=== PATIENT | male | born 1935 | race Caucasian/White ===

== ENCOUNTER → 2017-12-08 | Outpatient (CLI) | payer MEDICARE ==
--- NOTE | 2017-12-08 15:09 | CONS ---
CONSULTATION DATE OF SERVICE: 12/08/2017 A 81-year-old gentleman has been evaluated in [facility] for significant excessive daytime sleepiness. The patient has history of obstructive sleep apnea-hypopnea syndrome in the past. HISTORY OF PRESENT ILLNESS/SLEEP-WAKE EVALUATION: Patient was diagnosed with obstructive sleep apnea 2 years ago and at that time, he was recommended to use CPAP equipment. He did not like it at that time and stopped therapy. Presently, his sleep schedule from around 12:30 am until 7 or 7:15 a.m. He sleeps for about 6-1/2 hours, wakes up 3 times and may have up to 3 episodes of nocturia at night. Sometimes he has problem with falling asleep for more than 30 minutes, but not more than 1 hour. He has TV set in bedroom. They usually he sleeps on the back. No history of hypnagogic hallucinations, sleep paralysis or cataplexy. During the day patient feels sleepy. [place] Sleepiness Scale increased to 10. PAST MEDICAL HISTORY: Positive for coronary artery disease, diabetes mellitus, skin infection, tennis elbow, skin CA, BPH. PAST SURGICAL HISTORY: CABG for 3 vessels, bilateral knee replacement, and TURP, surgery for skin cancer and surgery for problem with the left elbow recently. MEDICATIONS: Lantus, glipizide, metoprolol, Januvia, , tramadol, gabapentin, cefaclor. SOCIAL HISTORY: Positive for occasional smoking cigars in the past. Alcohol consumption very rarely. FAMILY HISTORY: Heart problems, hyperlipidemia, stroke by his mother. Prostate cancer by his father. PHYSICAL EXAM: GENERAL gentleman without distress. VITAL SIGNS BP 108/66, HR 97, RR 14, height 65.5 inches, weight 156.4, BMI 25.5, temperature 97.8, oxygen saturation room air 94%. HEENT PERRLA, EOMI, evaluation of oropharynx showed moderately close to extremely low position of soft palate. Retrognathia 2 mm. Neck 15-1/2 inches in circumference. NECK Supple, no JVD. Thyroid is not palpable. LUNGS Clear to percussion and to auscultation. Good air exchange. No wheezing or rhonchi. HEART S1, S2 regular. No murmurs, gallops, or rubs. ABDOMEN Soft and nontender. Bowel sounds are present. No organomegaly appreciated. EXTREMITIES No clubbing or cyanosis. GROOVER RUNNER Awake, alert, and oriented X3. Cranial nerves 2 to 7 intact. There is no fasciculation or atrophy. noted. No focal deficits observed. IMPRESSION: 1. Multiple awakenings from sleep with nocturia, low position of soft palate, history of obstructive sleep apnea-hypopnea syndrome in the past, sleepiness, Dillon Sleepiness Scale increased to 10, obstructive sleep apnea-hypopnea syndrome. 2. Coronary artery disease, status post CABG. 3. Diabetes mellitus 4 status post bilateral knee replacement. 4. Status post left tennis elbow and surgical treatment. 5. History of benign prostatic hypertrophy, status post transurethral resection of prostate. 6. History of skin carcinoma treated surgically. 7. Shoulder arthritis. PLAN: 1. Polysomnography for evaluation of patient's breathing during sleep. 2. CPAP/BiPAP titration if sleep study confirms obstructive sleep apnea-hypopnea syndrome. 3. Preferable position during sleep on the side. 4. No driving if patient feels any sleepiness. 5. I will see patient for follow up visit to explain results of testing and following plan. Thank you very much for referring this patient for consultation. Sincerely, Mario Tejada MD, PhD, FAASM Diplomat of [employer] Senior Technical Trainer of [facility] [place] MMODL / IJN: [id number] /
== END | disposition home or self-care (01) ==
LOC: SLEEP 11:49
PROVIDERS: ATTEND Internal Medicine
DX: G47.33 Obstructive sleep apnea (adult) (pediatric) (principal); I25.10 Atherosclerotic heart disease of native coronary artery without angina pectoris; E11.9 Type 2 diabetes mellitus without complications; M13.819 Other specified arthritis, unspecified shoulder; Z87.891 Personal history of nicotine dependence; Z95.1 Presence of aortocoronary bypass graft; Z96.653 Presence of artificial knee joint, bilateral; Z98.890 Other specified postprocedural states; Z90.79 Acquired absence of other genital organ(s); Z79.4 Long term (current) use of insulin; Z79.899 Other long term (current) drug therapy; Z79.891 Long term (current) use of opiate analgesic
CPT/HCPCS: 99211

== ENCOUNTER → 2018-03-16 | Outpatient (CLI) | payer MEDICARE ==
--- NOTE | 2018-03-16 14:33 | SFUN ---
SLEEP CENTER FOLLOW UP NOTE DATE OF SERVICE: 03/16/2018 A 82-year-old gentleman who has been followed in the Sleep Center to discuss results of the sleep study and following plan. We discussed results of sleep studies with patient. Sleep study did not show any significant respiratory abnormalities during the sleep, apnea-hypopnea index was only 1.9, although patient slept only 49.1% of the time, which is lower sleep efficiency and sleep latency was prolonged to 40.6 minutes. EMG showed 62.9 periodic limb movements per hour with 11.4 microarousals per hour. Presently, [place] Sleepiness Scale increased to 13. Patient has tendency to go to bed later at night. MEDICATIONS: Lantus, glipizide, metformin, metoprolol, Januvia, tramadol, Gabapentin, cefaclor, . PHYSICAL EXAM: Patient in no distress. BP 124/61, HR 62, RR 16, weight 160 pounds, temperature 97.6, oxygen saturation at room air 99%. OROPHARYNX: Moderately low position of soft palate. Neck Supple, no JVD. Thyroid is not palpable. LUNGS Clear to percussion and to auscultation. Good air exchange. No wheezing or rhonchi. HEART S1, S2 regular. No murmurs, gallops, or rubs. ABDOMEN Soft and nontender. Bowel sounds are present. No organomegaly appreciated. EXTREMITIES No clubbing or cyanosis. LABORER HIGH DENSITY PRESS Awake, alert, and oriented X3. Cranial nerves 2 to 7 intact. There is no fasciculation or atrophy. noted. No focal deficits observed. IMPRESSION: 1. No significant respiratory abnormalities during the sleep study. 2. Severe periodic limb movements have been documented. 3. Coronary artery disease, status post coronary artery bypass grafting. 4. Diabetes mellitus. 5. Status post bilateral knee replacements. 6. Status post left elbow surgical treatment for tennis elbow. 7. History of benign prostatic hypertrophy, status post resection of prostate. 8. Status post surgical treatment for skin carcinoma. 9. Shoulder arthritis. PLAN: 1. We discussed with the patient possibility to use dopaminergic agonist for periodic limb movements. Presently, patient believes that it is not necessary. 2. Sleep hygiene with regular time in bed for 7-1/2 to 8 hours. 3. As much exposure to the sunlight in the morning and less exposure to the blue light in the evening with a goal to move sleep cycle earlier. 4. Reveals control, paradoxical intention, worry time if necessary. 5. Preferable position during the sleep on the side. 6. No driving if feeling sleepiness. Thank you very much for allowing me to participate in the management of your patient. Sincerely, Mario Tejada MD, PhD, FAASM Diplomat of [employer] Airplane Woodworker of [facility] [place] MMODL / YENNIFERN: [id number] /
== END ==
LOC: SLEEP 13:04
PROVIDERS: ATTEND Internal Medicine
DX: G47.61 Periodic limb movement disorder (principal); I25.10 Atherosclerotic heart disease of native coronary artery without angina pectoris; E11.9 Type 2 diabetes mellitus without complications; N40.0 Benign prostatic hyperplasia without lower urinary tract symptoms; M19.019 Primary osteoarthritis, unspecified shoulder; Z95.1 Presence of aortocoronary bypass graft; Z96.653 Presence of artificial knee joint, bilateral; Z98.890 Other specified postprocedural states; Z85.820 Personal history of malignant melanoma of skin; Z79.4 Long term (current) use of insulin; Z79.899 Other long term (current) drug therapy

== ENCOUNTER 2019-02-06 06:04 | Day surgery (SDC) | payer MEDICARE ==
[2019-02-02 14:02] VITALS: BMI 23.1
[~2019-02-06 06:04] MED LIST: ALPRAZolam 0.25 MG TAB PO PRN; ALPRAZolam 0.5 MG TAB PO PRN; ASPIRIN 325 MG TAB PO STA; ATORVASTATIN 80 MG TAB PO STA; NITROGLYCERIN SL TABS 0.4 MG TAB SUBLINGUAL PRN; SODIUM CHLORIDE 0.9% 1,000 ML in EMPTY BAG 1 BAG IV ONE
[2019-02-06 07:09] VITALS: RESP 16; TEMP 98.1
[2019-02-06 07:21] LABS: Basophils # (A) 0.1 k/uL (0-0.2); Basophils % (A) 1 %; Eosinophils # (A) 0.2 k/uL (0-0.7); Eosinophils % (A) 3 %; HCT 41.2 % (39.0-53.0); HGB 13.7 gm/dL (13.0-17.5); Lymphocytes # (A) 1.6 k/uL (1.0-4.8); Lymphocytes % (A) 18 %; MCH 32.4 pg (25.0-35.0); MCHC 33.3 g/dL (31.0-37.0); MCV 97.2 fL (80.0-100.0); Mean Platelet Volume 5.6; Monocytes # (A) 0.3 k/uL (0-1.0); Monocytes % (A) 4 %; Neutrophils # (A) 6.3 k/uL (1.3-7.7); Neutrophils % (A) 73 %; Platelet Count 223 k/uL (150-450); RBC 4.24 m/uL (4.30-5.90); RDW 12.7 % (11.5-15.5); WBC 8.5 k/uL (3.8-10.6)
[2019-02-06 07:23] LABS: Glucose,Whole Blood 130 mg/dL (75-99)
[2019-02-06] MEDS ORDERED: LIDOCAINE 1% INJ 10MG/ML (20 ML MDV) ONE (07:29)
[2019-02-06] MEDS ORDERED: fentaNYL (PF) 50 MCG/ML 2 ML AMP ONE (07:30)
[2019-02-06] MEDS ORDERED: fentaNYL (PF) 50 MCG/ML 2 ML AMP IV ONE (07:33)
[2019-02-06] MEDS ORDERED: LIDOCAINE 1% INJ 10MG/ML (20 ML MDV) SQ ONE (07:40)
[2019-02-06] MEDS ORDERED: MIDAZOLAM 2 MG/2 ML VIAL IV ONE (07:42)
[2019-02-06 07:46] LABS: Calcium 9.6 mg/dL (8.4-10.2); Potassium 4.3 mmol/L (3.5-5.1)
[2019-02-06] MEDS ORDERED: IOPAMIDOL-370 125ML BTL INJ ONE (08:00)
[2019-02-06] MEDS ORDERED: IOPAMIDOL-370 100ML BTL INJ ONE (08:09)
[2019-02-06] MEDS ORDERED: RX INFO: IV CONTRAST WAS GIVEN 1 EACH MISC MISCELLANE PRN (08:21)
[2019-02-06] MEDS ORDERED: ALPRAZolam 0.25 MG TAB PO PRN (08:22)
[2019-02-06] MEDS ORDERED: traMADol 50 MG TAB PO PRN (08:22)
[2019-02-06] MEDS ORDERED: SODIUM CHLORIDE 0.9% 1,000 ML IV SCH (08:30)
[2019-02-06] MEDS ORDERED: NON FORMULARY DRUG (Omeprazole [Omeprazole] 20 MG) PO SCH (09:00)
[2019-02-06] MEDS ORDERED: RAMIPRIL 2.5 MG PO SCH (09:00)
[2019-02-06] MEDS ORDERED: NON FORMULARY DRUG (Sitagliptin 100 MG) PO SCH (09:00)
[2019-02-06] MEDS ORDERED: INSULIN GLARGINE HUM REC ANLOG 20 UNIT SQ SCH (09:00)
[2019-02-06] MEDS ORDERED: ASPIRIN 81 MG PO SCH (09:00)
[2019-02-06] MEDS ORDERED: METOPROLOL TARTRATE 50 MG TAB PO SCH (09:00)
[2019-02-06] MEDS ORDERED: EZETIMIBE 10 MG TAB PO SCH (09:00)
[2019-02-06] MEDS ORDERED: ATORVASTATIN 40 MG TAB PO SCH (09:00)
[2019-02-06 09:09] LABS: Glucose,Whole Blood 115 mg/dL (75-99)
--- NOTE | 2019-02-06 09:29 | CC ---
CARDIAC CATHETERIZATION REPORT Mr. Chan is an 83-year-old male with known history of hypertension, hyperlipidemia, and diabetes mellitus, who presented with symptoms of progressive dyspnea and abnormal myocardial perfusion imaging with evidence of inferolateral wall ischemia. In view of that, recommendation was made regarding cardiac catheterization. The procedure as well as risks and the complications were discussed with the patient who is in full understanding and agreement. 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 Using Xylocaine anesthesia in the Seldinger technique, a 6-Kuwaiti sheath was introduced in the right femoral artery. Selective right and left coronary angiography was performed using 6- Kuwaiti 4 bend right and left Naye catheter. Multiple views of the coronary artery including hemiaxial views were obtained. Following that, the 6-Ku[place]i right Naye catheter was used to cannulate the saphenous vein graft to the obtuse marginal branch and TATE to the LAD. Images of the grafts were obtained. Following that, a 6-Kuwaiti right coronary bypass graft catheter was used to cannulate the saphenous vein graft to the right coronary artery. Subsequently, a 6-Kuwaiti tight pigtail catheter was introduced in the left ventricle and pressures were calculated. Subsequently an aortogram in the MAXINE view was performed. At the end procedure, catheter and sheath were removed. Hemostasis was obtained with compression of the right groin. There were no immediate complications. Patient was returned to his room in stable condition. FINDINGS: FLUOROSCOPY: There was severe calcification involving the left anterior descending artery. LEFT MAIN: This is a large-sized vessel bifurcating in left circumflex, left anterior descending artery. Left main coronary artery has a 20% plaque distally. The rest of the vessel has no high-grade stenosis. LEFT ANTERIOR DESCENDING ARTERY: This vessel is totally occluded after takeoff of a diagonal branch. There is a mild plaque proximal to the total occlusion. There is no significant antegrade flow. LEFT CIRCUMFLEX: This is a large-sized vessel giving rise to 2 obtuse marginal branches. The left circumflex has mild intimal disease of 10% to 20% proximally. It is calcified. The rest of the vessel has no high-grade stenosis. RIGHT CORONARY ARTERY: This is a heavily calcified vessel dominant. The ostium of the right coronary artery has a 70% plaque. There is another significant stenosis involving the mid right coronary artery in a heavily calcified segment of 90%. Distally, the vessel is totally occluded with no significant antegrade flow. SAPHENOUS VEIN GRAFT TO THE OBTUSE MARGINAL BRANCH: This graft is totally occluded proximally. SAPHENOUS VEIN GRAFT TO THE RIGHT CORONARY ARTERY: This graft is totally occluded proximal. TATE TO THE LAD: The distal anastomotic site is patent. The flow in the LAD is brisk. COLLATERALS: There is collateral from the left anterior descending artery and from the left circumflex toward the right PDA that are small in caliber. LEFT VENTRICULOGRAM: Left ventriculogram is not performed. HEMODYNAMICS: There was no gradient across the aortic valve. The left ventricle end-diastolic pressure was 10-12 mmHg. AORTOGRAM: Aortogram was performed in the MAXINE view and revealed a tricuspid aortic valve with no visualization of the saphenous vein graft. CONCLUSION: 1. 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 2. Mild disease in the left circumflex and the left main. 3. Patent TATE to left anterior descending artery. 4. Chronically occluded saphenous vein graft to the obtuse marginal branch as well as to the right coronary artery. RECOMMENDATION: At this time, I will continue medical therapy and patient will be evaluated for possible revascularization of his chronic occluded right coronary artery. Those findings and recommendation were discussed with the patient and his family who are in full understanding and agreement. Duration of procedure is 31 minutes. JAIR / YENNIFERN: [id number] /
--- NOTE | 2019-02-06 09:35 | LTR ---
February 06, 2019 Re: Mark Guerran Dear Dr. Dawn: I had the opportunity to perform cardiac catheterization on Mr. Chan at [facility] on the 06 of February and a full copy of the procedure note will be forwarded to you. In brief, he was found to have chronic occluded LAD and right coronary artery with patent TATE to LAD and chronically occluded saphenous vein graft to the OM and to the right coronary artery. At this time, I will continue medical therapy and evaluate him for possible angioplasty and attempt angioplasty and stenting of the chronic occluded right coronary artery. I will keep you updated on his progress and thank you again for allowing me the opportunity to participate in his care. Please feel free to call for any questions. Sincerely yours, MD JAIR Casanova / JANNIE: [id number] /
[2019-02-06 16:04] VITALS: BP 112/63; PULSE 69
[2019-02-06] MEDS ORDERED: ZOLPIDEM 5 MG TAB PO SCH (21:00)
== END 2019-02-06 15:45 | disposition home or self-care (01) ==
LOC: CATHCVL 06:04
PROVIDERS: ATTEND Internal Medicine Interventional Cardiology
DX: I25.10 Atherosclerotic heart disease of native coronary artery without angina pectoris (principal); I25.810 Atherosclerosis of coronary artery bypass graft(s) without angina pectoris; I25.84 Coronary atherosclerosis due to calcified coronary lesion; I25.82 Chronic total occlusion of coronary artery; I10 Essential (primary) hypertension; Z87.891 Personal history of nicotine dependence; E78.5 Hyperlipidemia, unspecified; E11.40 Type 2 diabetes mellitus with diabetic neuropathy, unspecified; E78.00 Pure hypercholesterolemia, unspecified; Z95.1 Presence of aortocoronary bypass graft; Z79.84 Long term (current) use of oral hypoglycemic drugs; Z79.82 Long term (current) use of aspirin; Z79.899 Other long term (current) drug therapy; Z88.5 Allergy status to narcotic agent
CPT/HCPCS: 93459; 80048; 85025; C1894; C1769; J2250; J2001; J3010; Q9967 ×2

== ENCOUNTER → 2019-02-13 | Outpatient (CLI) | payer MEDICARE ==
[2019-02-01 16:11] VITALS: BMI 23.1
--- NOTE | 2019-02-13 13:17 | MR ---
MR brain without contrast HISTORY: Cerebral vascular accident, memory loss Multiplanar multisequence imaging obtained through the brain Cortical atrophy is present. There is no restricted diffusion. No hemorrhage or hydrocephalus. There are scattered hyperintensities on inversion recovery T2-weighted sequences within the juxtacortical w tyrone matter on the left, axial image 24 and the left parietal lobe, right frontal subcortical white m atter on axial image #20 measuring 13 mm x 4 mm, bilateral frontal deep white matter. Some confluent hyperintensity also present in the periventricular locations. Increased signal also present within th e tectum which is symmetric. Corpus callosum, pituitary, cervical medullary junction, cerebellopontin e angles are normal. There are normal vascular flow voids. Focal area of encephalomalacia present at the medial aspect of the left cerebellar hemisphere, sagittal image #9, axial image #8. The orbits show symmetric appearance. Some mild inflammatory change suspected in the mastoid air cell s on the left. Sinuses show mild mucoperiosteal thickening in ethmoid air cells and maxillary sinus. 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 Age-related atrophy. Additional findings above.
== END | disposition home or self-care (01) ==
LOC: RADMRIMAIN 10:33
PROVIDERS: ATTEND Psychiatry & Neurology Neurology
DX: G31.1 Senile degeneration of brain, not elsewhere classified (principal); R90.89 Other abnormal findings on diagnostic imaging of central nervous system; G37.9 Demyelinating disease of central nervous system, unspecified; G93.89 Other specified disorders of brain; I67.9 Cerebrovascular disease, unspecified
CPT/HCPCS: 70551

== ENCOUNTER → 2019-04-13 | Outpatient (CLI) | payer MEDICARE ==
[2019-04-13 16:51] LABS: HCT 42.5 % (39.0-53.0); MCH 32.6 pg (25.0-35.0); MCHC 32.9 g/dL (31.0-37.0); MCV 98.9 fL (80.0-100.0); Mean Platelet Volume 6.9; Platelet Count 221 k/uL (150-450); RBC 4.29 m/uL (4.30-5.90); RDW 12.4 % (11.5-15.5); WBC 7.3 k/uL (3.8-10.6)
[2019-04-13 17:00] LABS: Prothrombin Time 10.5 sec (9.0-12.0)
[2019-04-13 23:22] LABS: African American GFR (CKD) 65.3 (60.0-200.0); Anion Gap 8.2 mmol/L (4.00-12.00); BUN/Creat Ratio 15.83 Ratio (12.00-20.00); Calcium 9.7 mg/dL (8.7-10.3); Carbon Dioxide 27.8 mmol/L (21.6-31.8); Magnesium 1.6 mg/dL (1.5-2.4); Non-African American GFR(CKD) 56.4 (60.0-200.0); Potassium 4.5 mmol/L (3.5-5.5)
== END | disposition home or self-care (01) ==
LOC: LABWHC1 15:52
PROVIDERS: ATTEND Internal Medicine Interventional Cardiology
DX: I25.118 Atherosclerotic heart disease of native coronary artery with other forms of angina pectoris (principal)
CPT/HCPCS: 36415; 80048; 83735; 85027; 85610

== ENCOUNTER 2019-04-27 06:07 | Day surgery (SDC) | payer MEDICARE ==
[2019-04-26 13:12] VITALS: BMI 23.5
[2019-04-27] MEDS ORDERED: SODIUM CHLORIDE 0.9% 1,000 ML IV SCH ×2 (06:08→08:45)
[2019-04-27] MEDS ORDERED: NITROGLYCERIN SL TABS 0.4 MG TAB SUBLINGUAL PRN (06:08)
[2019-04-27] MEDS ORDERED: SODIUM CHLORIDE 0.9% 1,000 ML in EMPTY BAG 1 BAG IV ONE (06:08)
[2019-04-27] MEDS ORDERED: ALPRAZolam 0.25 MG TAB PO PRN ×2 (06:08→08:43)
[2019-04-27] MEDS ORDERED: ALPRAZolam 0.5 MG TAB PO PRN (06:08)
[2019-04-27] MEDS ORDERED: SODIUM CHLORIDE 0.9% 1,000 ML IV ONE (06:23)
[2019-04-27 06:47] VITALS: RESP 16; TEMP 98
[2019-04-27 06:55] LABS: Glucose,Whole Blood 163 mg/dL (75-99)
[2019-04-27] MEDS ORDERED: ASPIRIN 325 MG TAB PO ONE (07:00)
[2019-04-27] MEDS ORDERED: fentaNYL (PF) 50 MCG/ML 2 ML AMP IVP ONE (08:09)
[2019-04-27] MEDS ORDERED: LIDOCAINE 1% INJ 10MG/ML (20 ML MDV) SQ ONE (08:10)
[2019-04-27] MEDS ORDERED: MIDAZOLAM 2 MG/2 ML VIAL IVP ONE (08:13)
[2019-04-27] MEDS ORDERED: IOPAMIDOL-370 125ML BTL INJ ONE (08:25)
[2019-04-27] MEDS ORDERED: RX INFO: IV CONTRAST WAS GIVEN 1 EACH MISC MISCELLANE PRN (08:42)
[2019-04-27] MEDS ORDERED: traMADol 50 MG TAB PO PRN (08:43)
[2019-04-27] MEDS ORDERED: ZOLPIDEM 5 MG TAB PO PRN (08:43)
--- NOTE | 2019-04-27 08:54 | CC ---
CARDIAC CATHETERIZATION REPORT Mr. Chan is an 83-year-old male with known history of hypertension, hyperlipidemia, diabetes mellitus, and history of coronary artery disease, status post coronary artery bypass grafting in 2001 was recently found to have chronically occluded right coronary artery, underwent complex chronic total occlusion revascularization at [facility] on April 17. He presented yesterday with symptoms of chest discomfort and palpitation on and off and dyspnea and because of his recent intervention, recommendation made regarding cardiac catheterization, the procedures, risks, and complications were discussed with the patient who is in full understanding and agreement. PROCEDURE: Patient was brought to analyst microbiology lab in a fasting semi-sedated state after receiving fentanyl and Benadryl and achieving moderate conscious sedated state. Using Xylocaine anesthesia and Seldinger technique, a 6-Chinese sheath was introduced in the right femoral artery. Selective right and left coronary angiography performed using 6-Chinese 4 bend right and left Naye catheter. Multiple views of the coronary artery including hemiaxial views obtained. The 6-Chinese right Naye catheter was used to cross the aortic valve and pressures were calculated. Following that, catheter and sheath were removed. Hemostasis was obtained. Compression of the right groin, there were no immediate complications. Patient is returned to his room in stable condition. FINDINGS: LEFT MAIN: This is a large-sized vessel, bifurcating into left circumflex, left anterior descending artery. Left main coronary artery has about 20% plaque distally. LEFT ANTERIOR DESCENDING ARTERY: This vessel has a 20% plaque proximally. Subsequently, it is chronically occluded at the takeoff of the diagonal branch with minimal antegrade flow. LEFT CIRCUMFLEX: This is a nondominant vessel, giving rise to a large obtuse marginal branch. The left circumflex obtuse marginal branch has mild intimal disease of 10% to 20% without any evidence of high-grade stenosis. RIGHT CORONARY ARTERY: This is a large dominant vessel, stented throughout its course from the ostium to the bifurcation. It has a mild irregularity in the proximal and mid segment of 20%. The flow into the PLV is brisk. The flow in the PDA is slow. There is collaterals from the left coronary system toward the distal right PDA. There is no evidence to suggest stent thrombosis. LEFT VENTRICULOGRAM: Left ventriculogram was not performed. HEMODYNAMICS: There was no gradient across the aortic valve. The left ventricular end- diastolic pressure was 12-14 mmHg. CONCLUSION: 1. Patent multiple stent into the right coronary artery with mild irregularity but no clear evidence to suggest a thrombosis of the stents and slow flow in the PDA. 2. Chronically occluded mid LAD 3. Mild disease in the left circumflex. RECOMMENDATION: In view of finding in the anatomy, I recommend continue medical therapy. Depending on his progress, further recommendation will be made. Those findings and recommendations were discussed with the patient and his family and they are in full understanding and agreement. Duration of procedure is 17 minutes. MMJULIENNEL / YENNIFERN: [id number] / MTDHarvey
--- NOTE | 2019-04-27 08:59 | LTR ---
DATE OF SERVICE: 04/27/2019 RE: Mark Chan Dear Dr. Dawn; I had the pleasure to perform cardiac catheterization on Mr. Chan at [facility] on April 27 and a full copy of the procedure note will be forwarded to you. In brief, he was found to have patent multiple stents done recently on the right coronary artery with mild plaque. The left system showed no progression compared with a cardiac catheterization that was done recently and based on those findings, I recommend continue medical therapy with the present regimen and depending on his progress, further recommendation will be made. Sincerely, MD MICHAEL CasanovaL / YENNIFERN: [id number] /
[2019-04-27] MEDS ORDERED: RAMIPRIL 2.5 MG PO SCH (09:00)
[2019-04-27] MEDS ORDERED: ATORVASTATIN 40 MG TAB PO SCH (09:00)
[2019-04-27] MEDS ORDERED: NON FORMULARY DRUG (Omeprazole [Omeprazole] 20 MG) PO SCH (09:00)
[2019-04-27] MEDS ORDERED: EZETIMIBE 10 MG TAB PO SCH (09:00)
[2019-04-27] MEDS ORDERED: TAMSULOSIN 0.4 MG CAP.ER.24H PO SCH (09:00)
[2019-04-27] MEDS ORDERED: TICAGRELOR 90 MG TAB PO SCH (09:00)
[2019-04-27] MEDS ORDERED: INSULIN GLARGINE HUM REC ANLOG 20 UNIT SQ SCH (09:00)
[2019-04-27] MEDS ORDERED: METOPROLOL TARTRATE 50 MG TAB PO SCH (09:00)
[2019-04-27 17:14] VITALS: BP 107/61; PULSE 63
[2019-04-28] MEDS ORDERED: ASPIRIN 81 MG PO SCH (09:00)
== END 2019-04-27 14:20 | disposition home or self-care (01) ==
LOC: CATHCVL 06:07
PROVIDERS: ATTEND Internal Medicine Interventional Cardiology
DX: I25.110 Atherosclerotic heart disease of native coronary artery with unstable angina pectoris (principal); I25.82 Chronic total occlusion of coronary artery; I10 Essential (primary) hypertension; E78.00 Pure hypercholesterolemia, unspecified; E11.9 Type 2 diabetes mellitus without complications; E78.2 Mixed hyperlipidemia; M19.90 Unspecified osteoarthritis, unspecified site; Z79.82 Long term (current) use of aspirin; Z79.899 Other long term (current) drug therapy; Z79.84 Long term (current) use of oral hypoglycemic drugs; Z88.5 Allergy status to narcotic agent; Z95.1 Presence of aortocoronary bypass graft; Z72.0 Tobacco use
CPT/HCPCS: 93458; C1894; C1769; J2250; J2001; J3010; Q9967

== ENCOUNTER 2020-12-03 07:43 | Emergency (ER) | payer MEDICARE ==
[2020-12-03 07:51] VITALS: RESP 18; TEMP 97.8
--- NOTE | 2020-12-03 08:14 | ED ---
General Adult HPI - General Chief complaint: Arrhythmia/Palpitations Stated complaint: cough & cardiac concerns Time Seen by Provider: 12/03/20 07:45 Source: patient, RN notes reviewed, old records reviewed Mode of arrival: wheelchair Limitations: no limitations - History of Present Illness Initial comments: This is an 84-year-old male who presents emergency Department with his . Patient has no complaints agrees the patient never did have any complaints. When it doesn't normal set of vitals every morning and this morning she said when she listened to his heart she thought the heart rate was 134 however the pulse was under 100 at all times. Patient had no chest pain patient had no palpitations. Patient denies any difficulty breathing shortness of breath. Patient states he has a chronic cough since he had recurrence since covert about 2 weeks ago. Patient is vaccinated for COVID. Patient denies any fever chills. Patient denies any abdominal pain patient denies nausea vomiting. Patient denies any lightheadedness or dizziness. - Related Data Home Medications Medication Instructions Recorded Confirmed ALPRAZolam [Xanax] 0.25 mg PO BID PRN 03/14/17 04/26/19 Atorvastatin [Lipitor] 40 mg PO DAILY 03/14/17 04/27/19 Ezetimibe [Zetia] 10 mg PO DAILY 03/14/17 04/27/19 Gabapentin [Neurontin] 100 - 200 mg PO HS 03/14/17 04/27/19 Insulin Glargine,Hum.rec.anlog 20 unit SQ QAM 03/14/17 04/27/19 [Lantus Solostar] Metoprolol Tartrate [Lopressor] 50 mg PO BID 03/14/17 04/27/19 Omeprazole 20 mg PO DAILY 03/14/17 04/27/19 Zolpidem Tartrate [Ambien] 5 mg PO HS PRN 03/14/17 04/26/19 ramipriL [Altace] 2.5 mg PO DAILY 03/14/17 04/27/19 traMADol HCL [Ultram] 50 mg PO Q6HR PRN 03/14/17 04/26/19 INSULIN ASPART (NovoLOG) [NovoLOG 0 units INJ TID-W/MEALS PRN 02/17/18 04/27/19 (formulary)] Aspirin [Children's Aspirin] 81 mg PO DAILY 04/26/19 04/27/19 Nitroglycerin Sl Tabs [Nitrostat] 0.4 mg SUBLINGUAL Q5M PRN 04/26/19 04/26/19 Tamsulosin HCl [Flomax] 0.4 mg PO DAILY 04/26/19 04/27/19 Ticagrelor [Brilinta] 90 mg PO BID 04/26/19 04/27/19 sitaGLIPtin PHOS/metFORMIN HCL 1 each PO BID 04/26/19 04/27/19 [Janumet 50-500 mg Tablet] Allergies Allergy/AdvReac Type Severity Reaction Status Date / Time codeine Allergy Unknown Verified 12/03/20 07:44 povidone-iodine Allergy Rash/Hives Verified 12/03/20 07:44 [From Betadine] soap [From Betadine] Allergy Rash/Hives Verified 12/03/20 07:44 Review of Systems ROS Statement: Those systems with pertinent positive or pertinent negative responses have been documented in the HPI. ROS Other: All systems not noted in ROS Statement are negative. Past Medical History Past Medical History: Coronary Artery Disease (CAD), Cancer, Diabetes Mellitus, GERD/Reflux, Hyperlipidemia, Hypertension Additional Past Medical History / Comment(s): Hx skin cancer, head and thigh. Neuropathy feet/lower legs. Chronic dry skin and runny nose. History of Any Multi-Drug Resistant Organisms: None Reported Past Surgical History: Coronary Bypass/CABG, Heart Catheterization, Joint Replacement, Prostate Surgery Additional Past Surgical History / Comment(s): Total knee replacements - X1 right and X2 left. CABG 2003. 5 stents placed Apr 17 [facility]. Cataracts removed. Past Anesthesia/Blood Transfusion Reactions: No Reported Reaction Past Psychological History: Anxiety Past Alcohol Use History: Rare Past Drug Use History: None Reported - Past Family History Mother Family Medical History: Mitral Valve Prolapse (MVP) Additional Family Medical History / Comment(s): age 62. Father Family Medical History: Cancer Additional Family Medical History / Comment(s): age 72, prostate cancer. General Exam - General Exam Comments Initial Comments: GENERAL: Patient is well-developed and well-nourished. Patient is nontoxic and well- hydrated and is in no acute distress. ENT: Neck is soft and supple. No significant lymphadenopathy is noted. Oropharynx i s clear. Moist mucous membranes. Neck has full range of motion without eliciting any pain. EYES: The sclera were anicteric and conjunctiva were pink and moist. Extraocular movements were intact and pupils were equal round and reactive to light. Eyelids were unremarkable. PULMONARY: Unlabored respirations. Good breath sounds bilaterally. No audible rales rhonchi or wheezing was noted. CARDIOVASCULAR: There is a regular rate and rhythm without any murmurs gallops or rubs. ABDOMEN: Soft and nontender with normal bowel sounds. SKIN: Skin is clear with no lesions or rashes and otherwise unremarkable. NEUROLOGIC: Patient is alert and oriented x3. Cranial nerves II through XII are grossly intact. Motor and sensory are also intact. Normal speech, volume and content. Symmetrical smile. MUSCULOSKELETAL: Normal extremities with adequate strength and full range of motion. No lower extremity swelling or edema. No calf tenderness. LYMPHATICS: No significant lymphadenopathy is noted PSYCHIATRIC: Normal psychiatric evaluation. Limitations: no limitations Course Vital Signs 12/03/20 12/03/20 12/03/20 07:44 08:30 09:00 Temperature 97.8 F Pulse Rate 93 79 82 Respiratory 18 18 18 Rate Blood Pressure 105/70 117/76 101/65 O2 Sat by Pulse 97 97 97 Oximetry Medical Decision Making - Medical Decision Making EKG shows normal sinus rhythm at 83 bpm OK interval is 134 QRS is 92 QT interval is 44 QTC is 474. Patient's EKG shows no ST segment elevation or depression. On arrival patient's heart rate was consistently in the 80s. Patient's heart rate never exceeded 100 throughout his ED stay. I spoke with Dr. Mensah and he had the results of the stress test that he did yesterday and he was comfortable letting the patient go home as long as he is asymptomatic. Patient continued to be symptomatically this ED stay. Chest x-ray shows no acute abnormality. I went back in and spoke with the patient and the and they're both comfortable being discharged. - Lab Data Result diagrams: 12/03/20 08:34 12/03/20 08:34 Lab Results 12/03/20 12/03/20 12/03/20 Range/Units 08:34 08:34 08:34 WBC 5.7 (3.8-10.6) k/uL RBC 3.91 L (4.30-5.90) m/uL Hgb 13.2 (13.0-17.5) gm/dL Hct 38.3 L (39.0-53.0) % MCV 98.0 (80.0-100.0) fL MCH 33.8 (25.0-35.0) pg MCHC 34.5 (31.0-37.0) g/dL RDW 13.9 (11.5-15.5) % Plt Count 257 (150-450) k/uL MPV 6.6 Neutrophils % 73 % Lymphocytes % 16 % Monocytes % 5 % Eosinophils % 3 % Basophils % 0 % Neutrophils # 4.2 (1.3-7.7) k/uL Lymphocytes # 0.9 L (1.0-4.8) k/uL Monocytes # 0.3 (0-1.0) k/uL Eosinophils # 0.2 (0-0.7) k/uL Basophils # 0.0 (0-0.2) k/uL PT 9.9 (9.0-12.0) sec INR 0.9 (<1.2) APTT 21.4 L (22.0-30.0) sec Sodium 136 L (137-145) mmol/L Potassium 4.6 (3.5-5.1) mmol/L Chloride 103 (98-107) mmol/L Carbon Dioxide 23 (22-30) mmol/L Anion Gap 10 mmol/L BUN 20 (9-20) mg/dL Creatinine 0.86 (0.66-1.25) mg/dL Est GFR (CKD-EPI)AfAm >90 (>60 ml/min/1.73 sqM) Est GFR (CKD-EPI)NonAf 81 (>60 ml/min/1.73 sqM) Glucose 136 H (74-99) mg/dL Calcium 9.7 (8.4-10.2) mg/dL Magnesium 1.8 (1.6-2.3) mg/dL Total Bilirubin 0.2 (0.2-1.3) mg/dL AST 41 (17-59) U/L ALT 28 (4-49) U/L Alkaline Phosphatase 53 (38-126) U/L Troponin I (0.000-0.034) ng/mL Total Protein 6.2 L (6.3-8.2) g/dL Albumin 3.8 (3.5-5.0) g/dL 12/03/20 Range/Units 08:34 WBC (3.8-10.6) k/uL RBC (4.30-5.90) m/uL Hgb (13.0-17.5) gm/dL Hct (39.0-53.0) % MCV (80.0-100.0) fL MCH (25.0-35.0) pg MCHC (31.0-37.0) g/dL RDW (11.5-15.5) % Plt Count (150-450) k/uL MPV Neutrophils % % Lymphocytes % % Monocytes % % Eosinophils % % Basophils % % Neutrophils # (1.3-7.7) k/uL Lymphocytes # (1.0-4.8) k/uL Monocytes # (0-1.0) k/uL Eosinophils # (0-0.7) k/uL Basophils # (0-0.2) k/uL PT (9.0-12.0) sec INR (<1.2) APTT (22.0-30.0) sec Sodium (137-145) mmol/L Potassium (3.5-5.1) mmol/L Chloride (98-107) mmol/L Carbon Dioxide (22-30) mmol/L Anion Gap mmol/L BUN (9-20) mg/dL Creatinine (0.66-1.25) mg/dL Est GFR (CKD-EPI)AfAm (>60 ml/min/1.73 sqM) Est GFR (CKD-EPI)NonAf (>60 ml/min/1.73 sqM) Glucose (74-99) mg/dL Calcium (8.4-10.2) mg/dL Magnesium (1.6-2.3) mg/dL Total Bilirubin (0.2-1.3) mg/dL AST (17-59) U/L ALT (4-49) U/L Alkaline Phosphatase (38-126) U/L Troponin I <0.012 (0.000-0.034) ng/mL Total Protein (6.3-8.2) g/dL Albumin (3.5-5.0) g/dL Disposition Clinical Impression: Tachycardia [facility] Instructions (If sedation given, give patient instructions): Tachycardia (ED) Is patient prescribed a controlled substance at d/c from ED?: No Referrals: Blaine Dawn MD [Primary Care Provider] - 1-2 days Time of Disposition: 09:40
[2020-12-03 08:55] LABS: ALT 28 U/L (4-49); AST 41 U/L (17-59); African American GFR (CKD) >90 (>60 ml/min/1.73 sqM); Albumin 3.8 g/dL (3.5-5.0); Alkaline Phosphatase 53 U/L (38-126); Anion Gap 10 mmol/L; Blood Urea Nitrogen 20 mg/dL (9-20); Calcium 9.7 mg/dL (8.4-10.2); Carbon Dioxide 23 mmol/L (22-30); Chloride 103 mmol/L (98-107); Glucose 136 mg/dL (74-99); Magnesium 1.8 mg/dL (1.6-2.3); Non-African American GFR(CKD) 81 (>60 ml/min/1.73 sqM); Potassium 4.6 mmol/L (3.5-5.1); Sodium 136 mmol/L (137-145); Total Bilirubin 0.2 mg/dL (0.2-1.3); Total Protein 6.2 g/dL (6.3-8.2)
[2020-12-03 08:56] LABS: Basophils % (A) 0 %; Eosinophils # (A) 0.2 k/uL (0-0.7); Eosinophils % (A) 3 %; HCT 38.3 % (39.0-53.0); HGB 13.2 gm/dL (13.0-17.5); Lymphocytes # (A) 0.9 k/uL (1.0-4.8); Lymphocytes % (A) 16 %; MCH 33.8 pg (25.0-35.0); MCHC 34.5 g/dL (31.0-37.0); Mean Platelet Volume 6.6; Monocytes # (A) 0.3 k/uL (0-1.0); Monocytes % (A) 5 %; Neutrophils # (A) 4.2 k/uL (1.3-7.7); Neutrophils % (A) 73 %; Platelet Count 257 k/uL (150-450); RBC 3.91 m/uL (4.30-5.90); RDW 13.9 % (11.5-15.5); WBC 5.7 k/uL (3.8-10.6)
[2020-12-03 08:58] LABS: INR 0.9 (<1.2); Prothrombin Time 9.9 sec (9.0-12.0)
--- NOTE | 2020-12-03 09:05 | XR ---
EXAMINATION TYPE: XR chest 2V DATE OF EXAM: 12/03/2020 COMPARISON: NONE HISTORY: Shortness of breath TECHNIQUE: Frontal and lateral views of the chest are obtained. FINDINGS: Scattered senescent parenchymal changes noted. Hyperinflation compatible with COPD. No evidence for infiltrate. No evidence for atelectasis. Heart size is stable. Mediastinal structures are stable and grossly unremarkable. No evidence for hilar prominence. Degenerative changes dorsal spine. IMPRESSION: 1. No evidence for acute pulmonary disease.
[2020-12-03 09:15] LABS: Partial Thromboplastin Time 21.4 sec (22.0-30.0)
[2020-12-03 10:00] VITALS: BP 100/66; PULSE 73
== END 2020-12-03 10:05 ==
LOC: EC 07:43
DX: R00.0 Tachycardia, unspecified (principal); E11.9 Type 2 diabetes mellitus without complications; I25.10 Atherosclerotic heart disease of native coronary artery without angina pectoris; K21.9 Gastro-esophageal reflux disease without esophagitis; E78.5 Hyperlipidemia, unspecified; I10 Essential (primary) hypertension; Z95.1 Presence of aortocoronary bypass graft; F41.9 Anxiety disorder, unspecified; Z79.899 Other long term (current) drug therapy; Z79.4 Long term (current) use of insulin; Z79.82 Long term (current) use of aspirin
CPT/HCPCS: 36415; 71046; 80053; 83735; 84484; 85025; 85610; 85730; 93005; 99285

== ENCOUNTER 2022-03-18 07:12 | Day surgery (SDC) | payer MEDICARE ==
[2022-03-16 11:59] VITALS: BMI 21.3
[~2022-03-18 07:12] MED LIST changes: -ATORVASTATIN 80 MG TAB PO STA; -SODIUM CHLORIDE 0.9% 1,000 ML in EMPTY BAG 1 BAG IV ONE; +SODIUM CHLORIDE 0.9% 1,000 ML in EMPTY BAG 1 BAG IV SCH
[2022-03-18] MEDS ORDERED: ASPIRIN 81 MG ONE (07:50)
[2022-03-18 08:00] LABS: Glucose,Whole Blood 167 mg/dL (70-110)
[2022-03-18 08:01] LABS: Basophils % (A) 1 %; Eosinophils # (A) 0.2 k/uL (0-0.7); Eosinophils % (A) 3 %; HGB 13.4 gm/dL (13.0-17.5); Lymphocytes # (A) 1.4 k/uL (1.0-4.8); Lymphocytes % (A) 21 %; MCH 33.3 pg (25.0-35.0); MCHC 34.3 g/dL (31.0-37.0); MCV 97.2 fL (80.0-100.0); Mean Platelet Volume 7.7; Monocytes # (A) 0.3 k/uL (0-1.0); Monocytes % (A) 5 %; Neutrophils # (A) 4.6 k/uL (1.3-7.7); Neutrophils % (A) 69 %; Platelet Count 224 k/uL (150-450); RBC 4.02 m/uL (4.30-5.90); RDW 13.1 % (11.5-15.5); WBC 6.7 k/uL (3.8-10.6)
[2022-03-18 08:11] LABS: African American GFR (CKD) >90 (>60 ml/min/1.73 sqM); Anion Gap 8 mmol/L; Blood Urea Nitrogen 17 mg/dL (9-20); Calcium 8.9 mg/dL (8.4-10.2); Carbon Dioxide 25 mmol/L (22-30); Chloride 106 mmol/L (98-107); Glucose 175 mg/dL (74-99); Non-African American GFR(CKD) 85 (>60 ml/min/1.73 sqM); Sodium 139 mmol/L (137-145)
[2022-03-18 08:16] LABS: Potassium 5.1 mmol/L (3.5-5.1)
[2022-03-18 08:34] VITALS: RESP 16; TEMP 97.7
[2022-03-18] MEDS ORDERED: VERAPAMIL 2.5 MG/ML 2 ML AMP ONE (09:05)
[2022-03-18] MEDS ORDERED: fentaNYL (PF) 50 MCG/ML 2 ML AMP ONE (09:07)
[2022-03-18] MEDS ORDERED: fentaNYL (PF) 50 MCG/ML 2 ML AMP IV ONE (09:24)
[2022-03-18] MEDS ORDERED: LIDOCAINE 1% INJ 10MG/ML (5 ML VIAL-PF) SQ ONE (09:27)
[2022-03-18] MEDS ORDERED: HEPARIN SODIUM 1,000 UN/ML (10ML VL) IV ONE (09:33)
[2022-03-18] MEDS ORDERED: MIDAZOLAM 2 MG/2 ML VIAL IV ONE (09:33)
[2022-03-18] MEDS ORDERED: ATROPINE SULFATE 0.1 MG/ML 10ML SYRINGE IV PRN (10:18)
[2022-03-18] MEDS ORDERED: NITROGLYCERIN SL TABS 0.4 MG TAB SUBLINGUAL PRN (10:18)
[2022-03-18] MEDS ORDERED: RX INFO: IV CONTRAST WAS GIVEN 1 EACH MISC MISCELLANE PRN (10:18)
[2022-03-18] MEDS ORDERED: MAG HYDROX/AL HYDROX/SIMETH 30 ML CUP PO PRN (10:18)
[2022-03-18] MEDS ORDERED: ZOLPIDEM 5 MG TAB PO PRN (10:18)
[2022-03-18] MEDS ORDERED: IOPAMIDOL-370 125ML BTL INJ ONE (10:22)
[2022-03-18] MEDS ORDERED: VERAPAMIL SYRINGE (5 MG/10 ML) INTRAARTER ONE (10:23)
[2022-03-18] MEDS ORDERED: SODIUM CHLORIDE 0.9% 1,000 ML in EMPTY BAG 1 BAG IV SCH (10:30)
--- NOTE | 2022-03-18 10:31 | P.CARDCATH ---
Date of Procedure: 03/18/22 Description of Procedure: Cardiac Catheterization: The patient is an 86-year-old male with a known history of CAD, post CABG and PCI who while visiting [place] recently had evidence of non-STEMI underwent cardiac catheterization and was found to have critical stenosis involving the distal left main and ostial left circumflex. He continues on having episodes of chest discomfort. Recommendations were made regarding cardiac catheterization, the risks and the complications were discussed with the patient who is in full understanding and agreement. Procedure Description: Patient was brought to labor arbitrator in fasting semi-sedated state after receiving Fentanyl and Benadryl achieiving moderate conscious sedated state. Using Xylocaine Anesthesia and Seldinger technique, a 6-Bolivian sheath was introduced in the right radial artery . Subsequently, selective coronary angiography was performed using a 5-Bolivian 5 bend right Naye and 6-Bolivian CLS 3.5 guiding catheter. Multiple views of the coronary artery including hemiaxial views were obtained. Following that and because of the suboptimal backup the guiding catheter was exchanged to a 6-Bolivian EBU 3.75 guiding catheter and after cannulating the left main a 0.014 whisper J-wire was positioned in the distal obtuse marginal branch, subsequently straight super cross microcatheter was advanced and the wire was exchanged to a 0.014 BMW J-wire. After removing the microcatheter 2.5 x 12 mm Euphoria balloon was advanced and multiple inflation at 8 keo were done,. After removing the balloon attempted to advance a 3.0 x 18 mm Xience danyell point stent were unsuccessful, the stent was removed and a guideliner catheter was advanced and subsequently the stent was advanced deployed and dilated at 16 keo. After removing the balloon 3.758 mm NC Treck was advanced and one inflation in the distal left main was done at 10 keo. After removing the balloon images were obtained and revealed stable successful stenting. Following that, catheter and sheath were removed. Hemostasis was obtained with deployment of TR band . There was no immediate complication. Patient was returned to room in stable condition. Of note, the patient received a total of 5000 units of intravenous heparin as well as intra-arterial verapamil. His ACT was monitored. He was continued on clopidogrel. He had no chest discomfort or EKG changes with the inflations. Findings: Fluoroscopy: Calcification of the distal left main and left circumflex was noted Left main: This is a large size vessel bifurcating into LAD and left circumflex, the left main has a 90% stenosis distally LAD: This vessel has a 95% stenosis at the ostium with no significant flow in the proximal segment Left circumflex: This is a large nondominant vessel giving rise to a large obtuse marginal branch. The ostium of the left circumflex and proximal segment has an area of stenosis of 99%, the rest of the vessel has no evidence of high- grade stenosis. RCA: This is a large dominant vessel, bifurcating into PDA and PLV. The vessel is diffusely stented. The proximal segment of the vessel has a 50% stenosis the rest of the vessel has minimal intimal in-stent restenosis with no evidence of high-grade stenosis Left Ventriculogram: Not performed Conclusion: 1. Critical stenosis involving the distal left main and ostium of the left circumflex 2. Chronically occluded LAD 3. And moderate disease in the ostium of the right coronary artery in the stented segment 4. Successful stenting of the distal left main and ostium of the left circumflex with reduction of stenosis from 99% to 0% Recommendations: The patient will continue on dual antiplatelet treatment with aspirin and Plavix for 1 year in addition to aggressive coronary risks modifications.. The findings and the recommendations were discussed with the patient and the family and they were in full understanding and agreement. Duration of sedation is 45 minutes.
[2022-03-18 16:10] VITALS: BP 108/65; PULSE 80
[2022-03-18] MEDS ORDERED: MEMANTINE 10 MG TAB PO SCH (21:00)
[2022-03-18] MEDS ORDERED: carvediloL 3.125 MG TAB PO SCH (21:00)
[2022-03-19] MEDS ORDERED: ARIPiprazole 5 MG TAB PO SCH (09:00)
[2022-03-19] MEDS ORDERED: EZETIMIBE 10 MG TAB PO SCH (09:00)
[2022-03-19] MEDS ORDERED: ATORVASTATIN 80 MG TAB PO SCH (09:00)
[2022-03-19] MEDS ORDERED: ASPIRIN 81 MG PO SCH (09:00)
[2022-03-19] MEDS ORDERED: CLOPIDOGREL 75 MG TAB PO SCH (09:00)
== END 2022-03-18 17:00 | disposition home or self-care (01) ==
LOC: CATHCVL 07:12
PROVIDERS: ATTEND Internal Medicine Interventional Cardiology
DX: I25.10 Atherosclerotic heart disease of native coronary artery without angina pectoris (principal); Z95.1 Presence of aortocoronary bypass graft; I21.4 Non-ST elevation (NSTEMI) myocardial infarction; J18.9 Pneumonia, unspecified organism; F17.210 Nicotine dependence, cigarettes, uncomplicated; I10 Essential (primary) hypertension; E78.5 Hyperlipidemia, unspecified; E11.9 Type 2 diabetes mellitus without complications; Z79.4 Long term (current) use of insulin; M19.90 Unspecified osteoarthritis, unspecified site; Z79.1 Long term (current) use of non-steroidal anti-inflammatories (NSAID); Z79.82 Long term (current) use of aspirin; Z79.01 Long term (current) use of anticoagulants; Z79.02 Long term (current) use of antithrombotics/antiplatelets; Z79.899 Other long term (current) drug therapy; Z79.891 Long term (current) use of opiate analgesic; Z88.5 Allergy status to narcotic agent
CPT/HCPCS: 93458; 80048; 85025; C9600; C1769 ×5; C1887 ×4; C1894; C1725 ×2; C1874; J2250; J2001; J3010; J1644; Q9967

== ENCOUNTER → 2022-03-26 | Outpatient (CLI) | payer MEDICARE ==
--- NOTE | 2022-03-26 11:42 | CT ---
EXAMINATION TYPE: CT brain wo con DATE OF EXAM: 03/26/2022 COMPARISON: None HISTORY: Abnormal gait, balance/memory issues CT DLP: 1162.[address] of the brain was performed. The ventricles, basal cisterns and sulci overlying the cerebral convexities demonstrate mild enlargem ent. There is no evidence for intracranial hemorrhage or sulcal effacement. There is decreased attenuation about the periventricular white matter and deep white matter of both c erebral hemispheres, compatible with chronic small vessel ischemia. Differential diagnosis does inclu de demyelination. No mass effects are seen.No midline shift. Osseous calvarium is intact. If symptoms persist consider MRI. IMPRESSION: 1. Age related atrophic and chronic small vessel ischemic change without acute intracranial process s een at this time.
== END | disposition home or self-care (01) ==
LOC: RADCTMAIN 11:07
PROVIDERS: ATTEND Psychiatry & Neurology Neurology
DX: G91.2 (Idiopathic) normal pressure hydrocephalus (principal); I67.82 Cerebral ischemia; G31.1 Senile degeneration of brain, not elsewhere classified; R26.89 Other abnormalities of gait and mobility; R26.81 Unsteadiness on feet
CPT/HCPCS: 70450

== ENCOUNTER 2024-04-05 05:39 | Emergency (ER) | payer MEDICARE ==
[2024-04-05] MEDS: ASPIRIN 81 MG PO STA (05:48)
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
[2024-04-05 06:21] LABS: Basophils % (A) 0 %; Eosinophils # (A) 0.4 k/uL (0-0.7); Eosinophils % (A) 5 %; HCT 37.1 % (39.0-53.0); HGB 11.7 gm/dL (13.0-17.5); Hypochromasia Slight; Lymphocytes # (A) 1.7 k/uL (1.0-4.8); Lymphocytes % (A) 20 %; MCHC 31.6 g/dL (31.0-37.0); MCV 94.9 fL (80.0-100.0); Mean Platelet Volume 6.8; Monocytes # (A) 0.4 k/uL (0-1.0); Monocytes % (A) 5 %; Neutrophils # (A) 5.9 k/uL (1.3-7.7); Neutrophils % (A) 69 %; Platelet Count 193 k/uL (150-450); RBC 3.91 m/uL (4.30-5.90); RDW 14.1 % (11.5-15.5); WBC 8.6 k/uL (3.8-10.6)
[2024-04-05 06:44] LABS: INR 0.9 (<1.2); Partial Thromboplastin Time 22.9 sec (22.0-30.0); Prothrombin Time 10.6 sec (10.0-12.5)
[2024-04-05 06:55] LABS: ALT 29 U/L (4-49); African American GFR (CKD) >90 (>60 ml/min/1.73 sqM); Anion Gap 9 mmol/L; Blood Urea Nitrogen 23 mg/dL (9-20); Calcium 9.6 mg/dL (8.4-10.2); Carbon Dioxide 22 mmol/L (22-30); Chloride 104 mmol/L (98-107); Glucose 168 mg/dL (74-99); Non-African American GFR(CKD) 79 (>60 ml/min/1.73 sqM); Sodium 135 mmol/L (137-145); Total Bilirubin 0.5 mg/dL (0.2-1.3)
[2024-04-05 07:23] LABS: AST 35 U/L (17-59); Alkaline Phosphatase 79 U/L (38-126); Magnesium 1.6 mg/dL (1.6-2.3); Potassium 5.5 mmol/L (3.5-5.1); Total Protein 6.7 g/dL (6.3-8.2)
--- NOTE | 2024-04-05 08:10 | XR ---
EXAMINATION TYPE: XR chest 2V DATE OF EXAM: 04/05/2024 6:18 AM COMPARISON: 10/20/2022 CLINICAL INDICATION: Male, 88 years old with history of Chest Pain, TECHNIQUE: XR chest 2V view(s) obtained. FINDINGS: The heart size is normal. The pulmonary vasculature is normal. Minimal left lower lobe infiltrate. Surgical clips from prior CABG are present. IMPRESSION: 1. Mild left lower lobe infiltrate. Correlate for atelectasis or developing pneumonia. Follow-up can be performed as clinically indicated [facility], , 04/05/2024 8:08 AM
[2024-04-05 08:41] VITALS: RESP 18
[2024-04-05 09:42] VITALS: BP 109/72; PULSE 85; TEMP 97.5
== END 2024-04-05 10:00 | disposition home or self-care (01) ==
LOC: EC 05:39
DX: R07.9 Chest pain, unspecified (principal); I11.9 Hypertensive heart disease without heart failure; I25.10 Atherosclerotic heart disease of native coronary artery without angina pectoris; Z88.5 Allergy status to narcotic agent; Z88.3 Allergy status to other anti-infective agents; Z91.048 Other nonmedicinal substance allergy status; Z87.891 Personal history of nicotine dependence
CPT/HCPCS: 36415; 71046; 80053; 83735; 83880; 84484; 85025; 85610; 85730; 93005; 99285

== ENCOUNTER 2024-04-11 00:14 | Observation (INO) | payer MEDICARE ==
--- NOTE | 2024-04-11 00:44 | ED ---
Chest Pain HPI - General Chief Complaint: Chest Pain Stated Complaint: chest pain Time Seen by Provider: 04/11/24 00:25 Source: patient, RN notes reviewed Mode of arrival: EMS - History of Present Illness Initial Comments: Patient is a 88 year old male with a past medical history of AR, CAD and short term memory deficit presenting with chest pain x 3 hours. He states the pain g radually started while he was laying down. He describes the pain as "burning" and a 6/10 intenstiy. He states he also has a slight headache. He denies any numbness or tingling of extremities, vision changes, or shortness of breath. He states that he has not felt anything like this before. Patient is a poor historian due to short term memory loss and denies any previous AR or stroke. - Related Data Home Medications Medication Instructions Recorded Confirmed ALPRAZolam [Xanax] 0.125 mg PO HS 03/14/17 10/20/22 Ezetimibe [Zetia] 10 mg PO DAILY 03/14/17 10/20/22 Gabapentin [Neurontin] 100 mg PO HS 03/14/17 10/20/22 Insulin Glargine,Hum.rec.anlog 16 unit SQ DAILY 03/14/17 10/20/22 [Lantus Solostar Pen] Omeprazole 20 mg PO DAILY 03/14/17 10/20/22 traMADol HCL [Ultram] 25 mg PO Q6HR PRN 03/14/17 10/20/22 Nitroglycerin Sl Tabs [Nitrostat] 0.4 mg SUBLINGUAL Q5M PRN 04/26/19 10/20/22 Tamsulosin HCl [Flomax] 0.4 mg PO DAILY 04/26/19 10/20/22 ARIPiprazole [Abilify] 5 mg PO DAILY 03/16/22 10/20/22 Atorvastatin [Lipitor] 80 mg PO DAILY 03/16/22 10/20/22 Clopidogrel [Plavix] 75 mg PO DAILY 03/16/22 10/20/22 Ginkgo Biloba [place] Extract [Ginkgo 125 mg PO BID 03/16/22 10/20/22 Biloba] Memantine [Namenda] 10 mg PO BID@0900,1700 03/16/22 10/20/22 Niacinamide 500 mg PO BID 03/16/22 10/20/22 Vitamin B Complex 1 cap PO DAILY 03/16/22 10/20/22 Albuterol Sulfate [Albuterol 2 puff PO RT-Q6H PRN 10/20/22 10/20/22 Sulfate Hfa] Galantamine HBr [Razadyne ER] 16 mg PO DAILY 10/20/22 10/20/22 Glucagon [Gvoke Pfs 1-Pack Syringe] 1 mg SQ DIRECTED PRN 10/20/22 10/20/22 Insulin Aspart [NovoLOG Flexpen] 6 - 9 units SQ AC-BID 10/20/22 10/20/22 Propylene Glycol/Peg 400/Pf 1 drop BOTH EYES BID 10/20/22 10/20/22 [Systane 0.3-0.4% Ophth Dropperette] Sacubitril/Valsartan [Entresto 24 1 tab PO BID 10/20/22 10/20/22 mg-26 mg Tablet] Spironolactone [Aldactone] 12.5 mg PO DAILY 10/20/22 10/20/22 Vit C/E/Zn/Coppr/Lutein/Zeaxan 1 cap PO BID 10/20/22 10/20/22 [Preservision Areds 2 Softgel] metFORMIN HCL ER [Glucophage XR] 500 mg PO BID@0900,1700 10/20/22 10/20/22 Previous Rx's Medication Instructions Recorded Aspirin 81 mg PO DAILY #30 tab 10/21/22 carvediloL [Coreg*] 12.5 mg PO BID@0900,1700 #60 tab 10/21/22 Allergies Allergy/AdvReac Type Severity Reaction Status Date / Time codeine Allergy Unknown Verified 04/05/24 05:46 povidone-iodine Allergy Rash/Hives Verified 04/05/24 05:46 [From Betadine] soap [From Betadine] Allergy Rash/Hives Verified 04/05/24 05:46 Review of Systems ROS Statement: Those systems with pertinent positive or pertinent negative responses have been documented in the HPI. ROS Other: All systems not noted in ROS Statement are negative. EKG Findings - EKG Comments: EKG Findings:: EKG performed at 0: 21 EKG performed sinus rhythm rate of 67 ME 147 QRS 105 QT/QTc 409/424 - EKG Results: EKG: interpreted by MITCHELL Past Medical History Past Medical History: Coronary Artery Disease (CAD), Cancer, CVA/TIA, Diabetes Mellitus, GERD/Reflux, Hyperlipidemia, Hypertension, Memory Impairment, Myocardial Infarction (AR) Additional Past Medical History / Comment(s): Hx skin cancer, head and thigh. Neuropathy feet/lower legs. Chronic dry skin and runny nose. 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 CABG 2003. 5 stents placed Apr 17 [facility]. Cataracts removed. COLONOSCOPY, NUMEROUS SKIN CANCER SPOTS REMOVED Past Anesthesia/Blood Transfusion Reactions: No Reported Reaction Date of Last Stent Placement:: 04/2019 Past Psychological History: Anxiety Smoking Status: Former smoker Past Alcohol Use History: None Reported Past Drug Use History: None Reported - Past Family History Mother Family Medical History: Mitral Valve Prolapse (MVP) Additional Family Medical History / Comment(s): age 62. Father Family Medical History: Cancer Additional Family Medical History / Comment(s): age 72, prostate cancer. General Exam Limitations: no limitations General appearance: alert, in no apparent distress Head exam: Present: atraumatic, normocephalic, normal inspection Eye exam: Present: normal appearance, PERRL, EOMI. Absent: scleral icterus, conjunctival injection, periorbital swelling ENT exam: Present: normal exam, normal oropharynx, mucous membranes moist Neck exam: Present: normal inspection, full ROM. Absent: tenderness, meningismus, lymphadenopathy Respiratory exam: Present: normal lung sounds bilaterally. Absent: respiratory distress, wheezes, rales, rhonchi, stridor Cardiovascular Exam: Present: regular rate, normal rhythm, normal heart sounds. Absent: systolic murmur, diastolic murmur, rubs, gallop, clicks GI/Abdominal exam: Present: soft, normal bowel sounds. Absent: distended, tenderness, guarding, rebound, rigid Neurological exam: Present: alert, CN II-XII intact Skin exam: Present: warm, dry. Absent: diaphoretic Course Vital Signs 04/11/24 04/11/24 00:19 01:18 Temperature 96.9 F L Pulse Rate 69 70 Respiratory 18 17 Rate Blood Pressure 113/70 122/74 O2 Sat by Pulse 99 100 Oximetry Chest Pain MDM - MDM Was pt. sent in by a medical professional or institution (, ANTONIETA, DIVISION OFFICER WEAPONS DEPARTMENT, urgent care, hospital, or [facility]...) When possible be specific @ -No Did you speak to anyone other than the patient for history (EMS, parent, family, police, friend...)? What history was obtained from this source @ -No Did you review nursing and triage notes (agree or disagree)? Why? @ -I reviewed and agree with nursing and triage notes Were old charts reviewed (outside hosp., previous admission, EMS record, old EKG, old radiological studies, urgent care reports/EKG's, [facility] records)? Report findings @ -No old charts were reviewed Differential Diagnosis (chest pain, altered mental status, abdominal pain women, abdominal pain men, vaginal bleeding, weakness, fever, dyspnea, syncope, headache, dizziness, GI bleed, back pain, seizure, CVA, palpatations, mental health, musculoskeletal)? @ -Differential Chest Pain: Stable Angina, Unstable Angina, STEMI, NSTEMI Aortic Dissection, Pneumothorax, Musculoskeletal, Esophageal Spasm GERD, Cholecystitis, Pancreatitis, Zoster, this is not meant to be an all-inclusive list. EKG interpreted by me (3pts min.). @ -As above X-rays interpreted by me (1pt min.). @ -Chest x-ray shows no acute cardiopulmonary process CT interpreted by me (1pt min.). @ -None done U/S interpreted by me (1pt. min.). @ -None done What testing was considered but not performed or refused? (CT, X-rays, U/S, labs)? Why? @ -None What meds were considered but not given or refused? Why? @ -None Did you discuss the management of the patient with other professionals (professionals i.e. ANTONIETA Hernandez, DIV[employer] DEPARTMENT, lab, RT, psych nurse, hospital social worker, automotive wholesale parts advisor, teacher, compliance officer, insurance case manager)? Give summary @ -[facility] for admission Was smoking cessation discussed for >3mins.? @ -No Was critical care preformed (if so, how long)? @ -No Were there social determinants of health that impacted care today? How? (Homelessness, low income, unemployed, alcoholism, drug addiction, transportation, low edu. Level, literacy, decrease access to med. care, custodial, rehab)? @ -No Was there de-escalation of care discussed even if they declined (Discuss DNR or withdrawal of care, Hospice)? DNR status @ -No What co-morbidities impacted this encounter? (DM, HTN, Smoking, COPD, CAD, Cancer, CVA, ARF, Chemo, Hep., AIDS, mental health diagnosis, sleep apnea, morbid obesity)? @ -None Was patient admitted / discharged? Hospital course, mention meds given and route, prescriptions, significant lab abnormalities, going to OR and other pertinent info. @ -Admitted patient presented to the emergency department for chest pain. Patient has significant risk factors. Patient has been here several times chest pain and will be admitted for cardiac rule out. Undiagnosed new problem with uncertain prognosis? @ -No Drug Therapy requiring intensive monitoring for toxicity (Heparin, Nitro, Insulin, Cardizem)? @ -No Were any procedures done? @ -No Diagnosis/symptom? @ -Chest pain Acute, or Chronic, or Acute on Chronic? @ -Acute Uncomplicated (without systemic symptoms) or Complicated (systemic symptoms)? @ -Complicated Side effects of treatment? @ -No Exacerbation, Progression, or Severe Exacerbation? @ -No Poses a threat to life or bodily function? How? (Chest pain, USA, AR, pneumonia, PE, COPD, DKA, ARF, appy, cholecystitis, CVA, Diverticulitis, Homicidal, Suicidal, threat to staff... and all critical care pts) @ -Yes possible ACS, threat to cardiac function Disposition Clinical Impression: Chest pain Disposition: ADMITTED IP TO THIS HOSP Condition: Fair Referrals: Blaine Dawn MD [Primary Care Provider] - 1-2 days Time of Disposition: 02:32
[2024-04-11 01:00] LABS: Basophils % (A) 0 %; Eosinophils # (A) 0.3 k/uL (0-0.7); Eosinophils % (A) 4 %; HCT 34.1 % (39.0-53.0); HGB 10.8 gm/dL (13.0-17.5); Hypochromasia Slight; Lymphocytes # (A) 1.6 k/uL (1.0-4.8); Lymphocytes % (A) 19 %; MCHC 31.6 g/dL (31.0-37.0); MCV 95.1 fL (80.0-100.0); Monocytes # (A) 0.5 k/uL (0-1.0); Monocytes % (A) 6 %; Neutrophils # (A) 5.9 k/uL (1.3-7.7); Neutrophils % (A) 69 %; Platelet Count 187 k/uL (150-450); RBC 3.59 m/uL (4.30-5.90); RDW 14.1 % (11.5-15.5); WBC 8.5 k/uL (3.8-10.6)
[2024-04-11 01:15] LABS: ALT 27 U/L (4-49); African American GFR (CKD) 83 (>60 ml/min/1.73 sqM); Albumin 3.9 g/dL (3.5-5.0); Anion Gap 10 mmol/L; Blood Urea Nitrogen 33 mg/dL (9-20); Calcium 9.3 mg/dL (8.4-10.2); Carbon Dioxide 20 mmol/L (22-30); Chloride 104 mmol/L (98-107); Glucose 169 mg/dL (74-99); Non-African American GFR(CKD) 72 (>60 ml/min/1.73 sqM); Sodium 134 mmol/L (137-145); Total Bilirubin 0.3 mg/dL (0.2-1.3); Total Protein 6.4 g/dL (6.3-8.2)
[2024-04-11 01:16] LABS: INR 0.9 (<1.2); Partial Thromboplastin Time 22.2 sec (22.0-30.0); Prothrombin Time 10.6 sec (10.0-12.5)
[2024-04-11 01:22] LABS: AST 30 U/L (17-59); Alkaline Phosphatase 79 U/L (38-126); Magnesium 1.7 mg/dL (1.6-2.3); Potassium 4.6 mmol/L (3.5-5.1)
--- NOTE | 2024-04-11 01:46 | XR ---
EXAM: XR Chest, 2 Views CLINICAL HISTORY: ITS.REASON XR Reason: Chest Pain TECHNIQUE: Frontal and lateral views of the chest. COMPARISON: No relevant prior studies available. FINDINGS: Lungs: Mild left basilar opacity. Pleural space: No effusion. Heart: cardiomegaly. Bones/joints: No acute findings. IMPRESSION: Mild left basilar opacity.
[2024-04-11] MEDS ORDERED: NITROGLYCERIN SL TABS 0.4 MG TAB SUBLINGUAL PRN (02:33)
[2024-04-11] MEDS: ASPIRIN 81 MG PO STA (02:48)
[2024-04-11] MEDS ORDERED: ACETAMINOPHEN TAB 325 MG TAB PO PRN (09:46)
[2024-04-11] MEDS ORDERED: DEXTROSE 50% SYRINGE 50 ML IVP PRN ×2 (09:47)
[2024-04-11] MEDS: ATORVASTATIN 80 MG TAB PO SCH (11:04)
[2024-04-11] MEDS: ARIPiprazole 5 MG TAB PO SCH (11:04)
[2024-04-11] MEDS: TAMSULOSIN 0.4 MG CAP.ER.24H PO SCH (11:04)
[2024-04-11] MEDS: PANTOPRAZOLE 40 MG TABLET PO SCH (11:04)
[2024-04-11 12:11] LABS: Glucose,Whole Blood 176 mg/dL (70-110)
[2024-04-11] MEDS: INSULIN ASPART (NovoLOG) 100 UNIT/ML VIAL SQ SCH (12:45)
--- NOTE | 2024-04-11 15:11 | P.CRDCN ---
History of Present Illness Consult date: 04/11/24 Consult reason: chest pain History of present illness: This is an 88-year-old male patient of Dr. Mensah with past medical history of coronary artery disease with previous CABG and most recent PCI of the distal left main in 03/18/2022, hypertension, dyslipidemia, diabetes mellitus type 2, mild to moderate stable dyspnea on exertion, ischemic cardiomyopathy. We have been asked to evaluate the patient for chest pain. Patient apparently presented to the emergency center on 04/05 for chest pain was discharged home on that time. Patient did receive 1 nitroglycerin and the pain was taken away. Patient now presents with chest pain that is rated as a 5 out of 10 according to the patient's . She gave him 3 nitroglycerin and the chest pain was unrelieved. EMS was called and brought the patient into the emergency center for further evaluation. Patient apparently has no chest pain at this time. Due to underlying dementia, patient's communication is done primarily by the patient's . Blood pressure 98/64, heart rate 74, pulse ox 98% on room air. Discussed treatment options with the patient's . She is agreeable for stress test tomorrow. Patient has had breakfast. -EKG: Sinus rhythm with no acute ST-T wave changes. -Chest x-ray: Mild left basilar opacity. -Laboratory studies: WBC 8.5, hemoglobin 10.8. Sodium 134, potassium 4.6, BUN 33 creatinine 0.96. Troponin negative x 3. Magnesium 1.7. -Home cardiac medications: Atorvastatin 80 mg daily, Coreg 3.125 mg twice daily, Zetia 10 mg daily, Nitrostat as needed. -Cardiac catheterization history: March 2022 with stenting to the left main. 95% distal left main stenosis noted, 99% proximal LAD, 95% ostial circumflex, patent TATE to LAD. -Patient underwent 3V CABG in 2001 (TATE-LAD, VG-RCA, VG-OM1) -Echocardiogram performed 02/15/2024 revealed EF of 47%, moderate MR, moderate TR, mild AR. Review Of Systems: At the time of my exam: CONSTITUTIONAL: Denies fever or chills. HEENT: Denies blurred vision, vision changes, or eye pain. Denies hemoptysis CARDIOVASCULAR: Denies chest pain. Denies orthopnea. Denies PND. Denies palpitations RESPIRATORY: Denies shortness of breath. GASTROINTESTINAL: Denies abdominal pain. Denies nausea or vomiting. HEMATOLOGIC: Denies bleeding disorders. GENITOURINARY: Denies any blood in urine. SKIN: Denies puritis. Denies rash. Physical examination: Gen: This is an 88-year-old male in no acute distress VS: reviewed HEENT: Head is atraumatic, normocephalic. Pupils equal, round. Sclerae is anicteric. NECK: Supple. No JVD. LUNGS: Clear to auscultation. No wheezes or rhonchi. No intercostal retractions. HEART: Regular rate and rhythm. 2/6 systolic ejection murmur. ABDOMEN: Soft No tenderness. EXTREMITIES: No pedal edema. No calf tenderness. NEUROLOGICAL: Patient is awake. Assessment: Chest pain, acute coronary syndrome ruled out Coronary artery disease with previous CABG and stents Ischemic cardiomyopathy Hyperlipidemia Hypertension Diabetes mellitus type 2 Chronic dyspnea on exertion stable Plan: Resume patient's home cardiac medications Schedule patient for Lexiscan Cardiolite stress test tomorrow Obtain 2-D echocardiogram and Doppler study to assess cardiac structure and function Further recommendations to follow based upon clinical course Thank you kindly for this consultation. Nurse practitioner note has been reviewed, I agree with documented findings and plan of care. Patient was seen and examined. Past Medical History Past Medical History: Coronary Artery Disease (CAD), Cancer, CVA/TIA, Diabetes Mellitus, GERD/Reflux, Hyperlipidemia, Hypertension, Memory Impairment, Myocardial Infarction ([place]) Additional Past Medical History / Comment(s): Hx skin cancer, head and thigh. Neuropathy feet/lower legs. Chronic dry skin and runny nose. 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 CABG 2004. 5 stents placed Apr 17 [facility]. Cataracts removed. COLONOSCOPY, NUMEROUS SKIN CANCER SPOTS REMOVED Past Anesthesia/Blood Transfusion Reactions: No Reported Reaction Date of Last Stent Placement:: 04/2019 Past Psychological History: Anxiety Smoking Status: Former smoker Past Alcohol Use History: None Reported Past Drug Use History: None Reported - Past Family History Mother Family Medical History: Mitral Valve Prolapse (MVP) Additional Family Medical History / Comment(s): age 62. Father Family Medical History: Cancer Additional Family Medical History / Comment(s): age 72, prostate cancer. Medications and Allergies Home Medications Medication Instructions Recorded Confirmed Type Ezetimibe [Zetia] 10 mg PO DAILY 03/14/17 04/11/24 History Gabapentin [Neurontin] 100 mg PO HS 03/14/17 04/11/24 History Insulin Glargine,Hum.rec.anlog 8 unit SQ DAILY 03/14/17 04/11/24 History [Lantus Solostar Pen] Nitroglycerin Sl Tabs [Nitrostat] 0.4 mg SUBLINGUAL Q5M PRN 04/26/19 04/11/24 History Tamsulosin HCl [Flomax] 0.4 mg PO DAILY 04/26/19 04/11/24 History ARIPiprazole [Abilify] 5 mg PO DAILY 03/16/22 04/11/24 History Atorvastatin [Lipitor] 80 mg PO DAILY 03/16/22 04/11/24 History Memantine [Namenda] 10 mg PO BID@0900,1700 03/16/22 04/11/24 History Insulin Aspart [NovoLOG Flexpen] 12 units SQ AC-BRKFST 10/20/22 04/11/24 History metFORMIN HCL ER [Glucophage XR] 500 mg PO BID@0900,1700 10/20/22 04/11/24 History Galantamine HBr [Razadyne ER] 24 mg PO DAILY 04/11/24 04/11/24 History Insulin Aspart [NovoLOG Flexpen] 0 - 6 units SQ AC-SUPPER 04/11/24 04/11/24 History carvediloL [Coreg] 3.125 mg PO BID@0900,1700 04/11/24 04/11/24 History Allergies Allergy/AdvReac Type Severity Reaction Status Date / Time codeine Allergy Unknown Verified 04/11/24 08:03 povidone-iodine Allergy Rash/Hives Verified 04/11/24 08:03 [From Betadine] soap [From Betadine] Allergy Rash/Hives Verified 04/11/24 08:03 Physical Exam Vitals: Vital Signs Temp Pulse Resp BP Pulse Ox 04/11/24 06:21 74 18 98/64 98 04/11/24 01:18 70 17 122/74 100 04/11/24 00:19 96.9 F L 69 18 113/70 99 Intake and Output 04/10/24 04/11/24 04/11/24 22:59 06:59 14:59 Other: Weight 65.771 kg Results 04/11/24 00:20 04/11/24 00:20 Cardiac Enzymes 04/11/24 04/11/24 04/11/24 Range/Units 00:20 00:20 05:26 AST 30 (17-59) U/L Troponin I <0.012 <0.012 (0.000-0.034) ng/mL 04/11/24 Range/Units 07:48 AST (17-59) U/L Troponin I <0.012 (0.000-0.034) ng/mL Coagulation 04/11/24 Range/Units 00:20 PT 10.6 (10.0-12.5) sec APTT 22.2 (22.0-30.0) sec CBC 04/11/24 Range/Units 00:20 WBC 8.5 (3.8-10.6) k/uL RBC 3.59 L (4.30-5.90) m/uL Hgb 10.8 L (13.0-17.5) gm/dL Hct 34.1 L (39.0-53.0) % Plt Count 187 (150-450) k/uL Comprehensive Metabolic Panel 04/11/24 Range/Units 00:20 Sodium 134 L (137-145) mmol/L Potassium 4.6 (3.5-5.1) mmol/L Chloride 104 (98-107) mmol/L Carbon Dioxide 20 L (22-30) mmol/L BUN 33 H (9-20) mg/dL Creatinine 0.96 (0.66-1.25) mg/dL Glucose 169 H (74-99) mg/dL Calcium 9.3 (8.4-10.2) mg/dL AST 30 (17-59) U/L ALT 27 (4-49) U/L Alkaline Phosphatase 79 (38-126) U/L Total Protein 6.4 (6.3-8.2) g/dL Albumin 3.9 (3.5-5.0) g/dL Current Medications Generic Name Dose Route Start Last Admin Trade Name Freq PRN Reason Stop Dose Admin Aspirin 325 mg 04/12/24 09:00 Aspirin 325 Mg Tab PO DAILY RADHA Nitroglycerin 0.4 mg 04/11/24 02:33 Nitroglycerin Sl Tabs 0.4 Mg Tab SUBLINGUAL Q5M PRN Chest Pain Intake and Output 04/10/24 04/11/24 04/11/24 22:59 06:59 14:59 Other: Weight 65.771 kg 04/11/24 00:20 04/11/24 00:20
[2024-04-11 17:21] LABS: Glucose,Whole Blood 127 mg/dL (70-110)
[2024-04-11 20:02] VITALS: RESP 16
[2024-04-11 20:21] LABS: Glucose,Whole Blood 251 mg/dL (70-110)
[2024-04-11] MEDS: GABAPENTIN 100 MG CAP PO SCH (20:56)
[2024-04-11] MEDS: MEMANTINE 10 MG TAB PO SCH (20:56)
--- NOTE | 2024-04-12 05:35 | P.HPIM ---
History of Present Illness H&P Date: 04/11/24 This is a 88-year-old male who presented to the emergency department with chest pain on the left side. Patient reports he had been having chest pain earlier in the week and came to the ER and was sleep relieved with 1 nitro. Patient started experiencing chest pain again later and proceeded to take 3 nitros with no relief and called EMS for further evaluation. Patient was brought to the ER and admitted with chest pain with cardiology on consultation. Patient follows with Dr. Dawn and Dr. Mensah in the outpatient setting with past medical history of coronary artery disease with previous CABG, CVA, diabetes mellitus, hypertension, hyperlipidemia, GERD, anxiety, memory impairment. Patient does not drink or smoke and there is no illicit IV drug use. Troponins have been negative and chest x-ray showing no acute process. Per at the bedside who provides most of the history, patient has been having a cough but denies any fever, nausea, or vomiting. There has been no falls or injuries per family. REVIEW OF SYSTEMS: CONSTITUTIONAL: No fever, no malaise, no fatigue. HEENT: No recent visual problems or hearing problems. Denied any sore throat. CARDIOVASCULAR: Reports of left wall chest pain, denies orthopnea, PND, no palpitations, no syncope. PULMONARY: No shortness of breath, no cough, no hemoptysis. GASTROINTESTINAL: No diarrhea, no nausea, no vomiting, no abdominal pain. NEUROLOGICAL: No headaches, no weakness, no numbness. HEMATOLOGICAL: Denies any bleeding or petechiae. GENITOURINARY: Denies any burning micturition, frequency, or urgency. MUSCULOSKELETAL/RHEUMATOLOGICAL: Denies any joint pain, swelling, or any muscle pain. ENDOCRINE: Denies any polyuria or polydipsia. The rest of the 14-point review of systems is negative. PHYSICAL EXAMINATION: GENERAL: The patient is alert and oriented x1-2 baseline, not in any acute distress. Well developed, thin built, elderly appearing HEENT: Pupils are round and equally reacting to light. EOMI. No scleral icterus. No conjunctival pallor. Normocephalic, atraumatic. No pharyngeal erythema. No th yromegaly. CARDIOVASCULAR: S1 and S2 muffled PULMONARY: Diminished breath sounds bilaterally otherwise chest is clear to auscultation, no wheezing or crackles noted in the bases. ABDOMEN: Soft, nontender, nondistended, normoactive bowel sounds. No palpable organomegaly. MUSCULOSKELETAL: No joint swelling or deformity. EXTREMITIES: No cyanosis, clubbing, or pedal edema. NEUROLOGICAL: Gross neurological examination did not reveal any focal deficits. SKIN: No rashes. Assessment: Chest pain, ruled out ACS History of hypertension History of hyperlipidemia Diabetes mellitus, type II, insulin-dependent GERD Anxiety Memory impairment History of ischemic cardiomyopathy History of coronary artery disease with previous CABG History of CVA/TIA GI prophylaxis DVT prophylaxis Full code Plan: Patient was admitted for cardiology evaluation due to chest pain. Cardiology has evaluated the patient and will continue on telemetry monitoring plans for stress testing on 04/12/2024 as patient ate this morning Home medications reviewed and resumed as appropriate Continue monitoring Accu-Cheks before meals and at bedtime and treat accordingly with sliding scale. Will add long-acting as needed Patient will be n.p.o. at midnight and will await cardiology stress testing for further recommendations There is a 2D echo ordered and family was concerned as he just had 1 done in February and Dr. Gregg office. Cardiology ordered repeat 2D echo Repeat labs ordered for a.m., replace electrolytes per protocol The impression and plan of care has been dictated by Jolly Beatty, Nurse Practitioner as directed. Dr. Will MD I have performed a history and examination and MDM of this patient, discussed the same with the dictator, and agree with the dictator's assessment and plan as written ,documented as a scribe. Based on total visit time, I have performed more than 50% of the visit. Past Medical History Past Medical History: Coronary Artery Disease (CAD), Cancer, CVA/TIA, Diabetes Mellitus, GERD/Reflux, Hyperlipidemia, Hypertension, Memory Impairment, Myocardial Infarction ([place]) Additional Past Medical History / Comment(s): Hx skin cancer, head and thigh. Neuropathy feet/lower legs. Chronic dry skin and runny nose. TIA X2-NO DEFICITS, DUPUYTREN'S BILAT HANDS, BRUISES EASY Last Myocardial Infarction Date:: 03/06/22-IN [place], [place] History of Any Multi-Drug Resistant Organisms: MRSA Date of last positivie culture/infection: 01/20/21 MDRO Source:: MRSA FACE Past Surgical History: Coronary Bypass/CABG, Heart Catheterization, Heart Catheterization With Stent, Joint Replacement, Prostate Surgery Additional Past Surgical History / Comment(s): Total knee replacements - X1 right and X2 left. CABG 2003. 5 stents placed Apr 17 [facility]. Cataracts removed. COLONOSCOPY, NUMEROUS SKIN CANCER SPOTS REMOVED Past Anesthesia/Blood Transfusion Reactions: No Reported Reaction Date of Last Stent Placement:: 04/2019 Past Psychological History: Anxiety Smoking Status: Former smoker Past Alcohol Use History: None Reported Past Drug Use History: None Reported - Past Family History Mother Family Medical History: Mitral Valve Prolapse (MVP) Additional Family Medical History / Comment(s): age 62. Father Family Medical History: Cancer Additional Family Medical History / Comment(s): age 72, prostate cancer. Medications and Allergies Home Medications Medication Instructions Recorded Confirmed Type Ezetimibe [Zetia] 10 mg PO DAILY 03/14/17 04/11/24 History Gabapentin [Neurontin] 100 mg PO HS 03/14/17 04/11/24 History Insulin Glargine,Hum.rec.anlog 8 unit SQ DAILY 03/14/17 04/11/24 History [Lantus Solostar Pen] Nitroglycerin Sl Tabs [Nitrostat] 0.4 mg SUBLINGUAL Q5M PRN 04/26/19 04/11/24 History Tamsulosin HCl [Flomax] 0.4 mg PO DAILY 04/26/19 04/11/24 History ARIPiprazole [Abilify] 5 mg PO DAILY 03/16/22 04/11/24 History Atorvastatin [Lipitor] 80 mg PO DAILY 03/16/22 04/11/24 History Memantine [Namenda] 10 mg PO BID@0900,1700 03/16/22 04/11/24 History Insulin Aspart [NovoLOG Flexpen] 12 units SQ AC-BRKFST 10/20/22 04/11/24 History metFORMIN HCL ER [Glucophage XR] 500 mg PO BID@0900,1700 10/20/22 04/11/24 History Galantamine HBr [Razadyne ER] 24 mg PO DAILY 04/11/24 04/11/24 History Insulin Aspart [NovoLOG Flexpen] 0 - 6 units SQ AC-SUPPER 04/11/24 04/11/24 History carvediloL [Coreg] 3.125 mg PO BID@0900,1700 04/11/24 04/11/24 History Allergies Allergy/AdvReac Type Severity Reaction Status Date / Time codeine Allergy Unknown Verified 04/11/24 08:03 povidone-iodine Allergy Rash/Hives Verified 04/11/24 08:03 [From Betadine] soap [From Betadine] Allergy Rash/Hives Verified 04/11/24 08:03 Physical Exam Vitals: Vital Signs Temp Pulse Resp BP Pulse Ox 04/11/24 06:21 74 18 98/64 98 04/11/24 01:18 70 17 122/74 100 04/11/24 00:19 96.9 F L 69 18 113/70 99 Intake and Output 04/10/24 04/11/24 04/11/24 22:59 06:59 14:59 Other: Weight 65.771 kg Results CBC & Chem 7: 04/11/24 00:20 04/11/24 00:20 Labs: Abnormal Lab Results - Last 24 Hours (Table) 04/11/24 04/11/24 Range/Units 00:20 00:20 RBC 3.59 L (4.30-5.90) m/uL Hgb 10.8 L (13.0-17.5) gm/dL Hct 34.1 L (39.0-53.0) % Sodium 134 L (137-145) mmol/L Carbon Dioxide 20 L (22-30) mmol/L BUN 33 H (9-20) mg/dL Glucose 169 H (74-99) mg/dL
[2024-04-12 05:40] LABS: Glucose,Whole Blood 155 mg/dL (70-110)
[2024-04-12] MEDS ORDERED: AMINOPHYLLINE 500 MG/20 ML VIAL IV PRN (06:00)
[2024-04-12] MEDS ORDERED: CAFFEINE CITRATE 60 MG/3 ML VIAL IV PRN (06:00)
[2024-04-12] MEDS ORDERED: REGADENOSON 0.4 MG/5 ML SYRINGE IV PRN (06:00)
[2024-04-12] MEDS: ASPIRIN 81 MG PO SCH (08:48)
[2024-04-12] MEDS: HEPARIN SODIUM,PORCINE 5,000 UNIT/ML 1 ML VIAL SQ SCH (08:48)
[2024-04-12] MEDS ORDERED: ASPIRIN 325 MG TAB PO SCH (09:00)
[2024-04-12 09:21] LABS: Basophils # (A) 0.06 X 10*3/uL (0.00-0.10); Basophils % (A) 0.7 %; Eosinophils # (A) 0.38 X 10*3/uL (0.04-0.35); Eosinophils % (A) 4.3 %; HCT 34.9 % (39.6-50.0); HGB 11.3 g/dL (13.0-17.0); Lymphocytes # (A) 1.74 X 10*3/uL (0.90-5.00); Lymphocytes % (A) 19.9 %; MCH 29.7 pg (27.0-32.0); MCHC 32.4 g/dL (32.0-37.0); MCV 91.6 FL (80.0-97.0); Monocytes # (A) 0.68 X 10*3/uL (0.20-1.00); Monocytes % (A) 7.8 %; NRBC Per 100 WBC 0 X 10*3/uL (0.00-0.01); Neutrophils # (A) 5.85 X 10*3/uL (1.80-7.70); Neutrophils % (A) 66.8 %; Platelet Count 184 X 10*3/uL (140-440); RBC 3.81 X 10*6/uL (4.40-5.60); RDW 14.3 % (11.5-14.5); WBC 8.75 X 10*3/uL (4.50-10.00)
[2024-04-12 10:59] LABS: BUN/Creat Ratio 24.11 Ratio (12.00-20.00); Blood Urea Nitrogen 21.7 mg/dL (9.0-27.0); Chloride 105 mmol/L (96-109); Chol/HDL Ratio 1.91 Ratio; Glucose 131 mg/dL (70-110); LDL Cholesterol,Calculated 34.3 mg/dL (0.0-131.0); Magnesium 1.7 mg/dL (1.5-2.4); Potassium 4.8 mmol/L (3.5-5.5); Sodium 138 mmol/L (135-145); VLDL Calculation 13.94 mg/dL (5.00-40.00)
[2024-04-12 11:00] LABS: Calcium 9.4 mg/dL (8.7-10.3); Carbon Dioxide 22.1 mmol/L (21.6-31.8)
--- NOTE | 2024-04-12 11:54 | P.PN ---
Subjective Progress Note Date: 04/12/24 Consult reason: chest pain History of present illness: This is an 88-year-old male patient of Dr. Mensah with past medical history of coronary artery disease with previous CABG and most recent PCI of the distal left main in 03/18/2022, hypertension, dyslipidemia, diabetes mellitus type 2, mild to moderate stable dyspnea on exertion, ischemic cardiomyopathy. We have been asked to evaluate the patient for chest pain. Patient apparently presented to the emergency center on 04/05 for chest pain was discharged home on that time. Patient did receive 1 nitroglycerin and the pain was taken away. Patient now presents with chest pain that is rated as a 5 out of 10 according to the patient's . She gave him 3 nitroglycerin and the chest pain was unrelieved. EMS was called and brought the patient into the emergency center for further evaluation. Patient apparently has no chest pain at this time. Due to underlying dementia, patient's communication is done primarily by the patient's . Blood pressure 98/64, heart rate 74, pulse ox 98% on room air. Discussed treatment options with the patient's . She is agreeable for stress test tomorrow. Patient has had breakfast. -EKG: Sinus rhythm with no acute ST-T wave changes. -Chest x-ray: Mild left basilar opacity. -Laboratory studies: WBC 8.5, hemoglobin 10.8. Sodium 134, potassium 4.6, BUN 33 creatinine 0.96. Troponin negative x 3. Magnesium 1.7. -Home cardiac medications: Atorvastatin 80 mg daily, Coreg 3.125 mg twice daily, Zetia 10 mg daily, Nitrostat as needed. -Cardiac catheterization history: March 2022 with stenting to the left main. 95% distal left main stenosis noted, 99% proximal LAD, 95% ostial circumflex, patent TATE to LAD. -Patient underwent 3V CABG in 2001 (TATE-LAD, VG-RCA, VG-OM1) -Echocardiogram performed 02/15/2024 revealed EF of 47%, moderate MR, moderate TR, mild AR. 04/12/2024 Patient seen and examined. No complaints of chest pain. He is scheduled for Lexiscan stress test this morning. Blood pressure readings are much improved, 119/75. Heart rate is running in the 70s, pulse ox 99% on room air. Repeat blood work reveals hemoglobin 11.3. Electrolytes are normal. Creatinine 0.9. Magnesium 1.7. Echocardiogram has been obtained and report is pending. Physical examination: Gen: This is an 88-year-old male in no acute distress VS: reviewed HEENT: Head is atraumatic, normocephalic. Pupils equal, round. Sclerae is anicteric. NECK: Supple. No JVD. LUNGS: Clear to auscultation. No wheezes or rhonchi. No intercostal retractions. HEART: Regular rate and rhythm. 2/6 systolic ejection murmur. ABDOMEN: Soft No tenderness. EXTREMITIES: No pedal edema. No calf tenderness. NEUROLOGICAL: Patient is awake. Assessment: Chest pain, acute coronary syndrome ruled out Coronary artery disease with previous CABG and stents Ischemic cardiomyopathy Hyperlipidemia Hypertension Diabetes mellitus type 2 Chronic dyspnea on exertion stable Plan: Continue patient's home cardiac medications Schedule patient for Lexiscan Cardiolite stress test today Obtain 2-D echocardiogram and Doppler study report If stress test and echocardiogram are unremarkable, patient is cleared for discharge from cardiology. Patient will follow-up in the office with Dr. Mensah in 1 week. Nurse practitioner note has been reviewed, I agree with documented findings and plan of care. Patient was seen and examined. Objective - Vital Signs Vital signs: Vital Signs Temp 97.6 F 04/12/24 08:00 Pulse 79 04/12/24 08:00 Resp 16 04/12/24 08:00 BP 119/75 04/12/24 08:00 Pulse Ox 97 04/12/24 08:53 FiO2 Intake & Output 04/11/24 04/12/24 04/12/24 18:59 06:59 18:59 Intake Total 240 Balance 240 Weight 65.771 kg Intake: Oral 240 Other: Voiding Method Toilet # Voids 2 - Labs CBC & Chem 7: 04/12/24 02:55 04/12/24 02:50 Labs: Abnormal Lab Results - Last 24 Hours (Table) 04/11/24 04/11/24 04/11/24 Range/Units 07:48 12:03 17:20 POC Glucose (mg/dL) 176 H 127 H (70-110) mg/dL Hemoglobin A1c 7.6 H (<=6.0) % 04/11/24 04/12/24 Range/Units 20:16 05:38 POC Glucose (mg/dL) 251 H 155 H (70-110) mg/dL Hemoglobin A1c (<=6.0) %
--- NOTE | 2024-04-12 12:08 | CA ---
Transthoracic Echo Report Name: Mark Chan Age: 88 Gender: M : 1935 Exam Date: 04/12/2024 08:36 Exam Location: [place] Echo Ht (in): 69 Wt (lb): 145 Ordering Physician: Jolly Beatty Attending/Referring Phys: Sales Activity Manager Camila Hughes RDCS Procedure CPT: Indications: Chest Pain Cardiac Hx: Technical Quality: Good Contrast 1: Total Dose (mL): Contrast 2: Total Dose (mL): MEASUREMENTS (Male / Female) Normal Values 2D ECHO LV Diastolic Diameter PLAX 5.1 cm 4.2 - 5.9 / 3.9 - 5.3 cm LV Systolic Diameter PLAX 3.4 cm IVS Diastolic Thickness 1.1 cm 0.6 - 1.0 / 0.6 - 0.9 cm LVPW Diastolic Thickness 1.1 cm 0.6 - 1.0 / 0.6 - 0.9 cm LV Relative Wall Thickness 0.4 RV Internal Dim ED PLAX 3.1 cm LA Systolic Diameter LX 3.8 cm 3.0 - 4.0 / 2.7 - 3.8 cm LV Diastolic Volume MOD 4C 114.5 cm??? LV Systolic Volume MOD 4C 59.5 cm??? LV Ejection Fraction MOD 4C 48.1 % LV Cardiac Index MOD 4C 2804.1 cm???/min???m??? LV Diastolic Length 4C 8.2 cm LV Systolic Length 4C 6.9 cm LV Diastolic Volume MOD 2C 76.1 cm??? LV Systolic Volume MOD 2C 47.0 cm??? LV Ejection Fraction MOD 2C 38.2 % LV Cardiac Index MOD 2C 1481.6 cm???/min???m??? LV Diastolic Length 2C 7.4 cm LV Systolic Length 2C 6.5 cm LA Volume 40.9 cm??? 18 - 58 / 22 - 52 cm??? LA Volume Index 22.9 cm???/m??? 16 - 28 cm???/m??? M-MODE Aortic Root Diameter MM 3.9 cm AV Cusp Separation MM 2.0 cm DOPPLER AV Peak Velocity 80.1 cm/s AV Peak Gradient 2.6 mmHg MV Area PHT 3.4 cm??? Mitral E Point Velocity 56.7 cm/s Mitral A Point Velocity 103.6 cm/s Mitral E to A Ratio 0.5 MV Deceleration Time 224.3 ms TR Peak Velocity 251.8 cm/s TR Peak Gradient 25.4 mmHg Right Ventricular Systolic Press 29.4 mmHg FINDINGS Left Ventricle Left ventricular ejection fraction is estimated at 40-45 %. Left ventricular cavity size normal. Mildly reduced global left ventricular systolic function. Right Ventricle Normal right ventricular size. Right ventricular systolic pressure within normal limits. Right Atrium Normal right atrial size. No right atrial thrombus or mass seen. Left Atrium Normal left atrial size. No left atrial thrombus or mass present. Mitral Valve Structurally normal mitral valve. Mitral valve thickened. Mild mitral regurgitation. Aortic Valve Trileaflet aortic valve. Thickened aortic valve without stenosis. Tricuspid Valve Structurally normal tricuspid valve. Mild tricuspid regurgitation. Pulmonic Valve Structurally normal pulmonic valve. No pulmonic regurgitation. Pericardium No pericardial effusion. Aorta Mild aortic dilatation at the level of the sinuses of valsalva 39 mm CONCLUSIONS LVEF 40 to 45% Globally reduced systolic function Mild mitral regurgitation Mild tricuspid regurgitation Normal RV size and systolic function. RVSP estimated at 30 mmHg Previewed by: Dr Nicholas Olivas (Electronically Signed) Final Date: 12 April 2024 12:07
--- NOTE | 2024-04-12 12:13 | CA ---
Lexiscan Nuclear Stress Test Report Name: Mark Chan Exam Date: 04/12/2024 10:38 Exam Location: [place] Stress Ht (in): 69 Wt (lb): 145 BSA: 1.80 Ordering Phys: Catina Ayon Referring Phys: SHEET Technologist: Yaya Colon Age: 88 Gender: M : 1935 Procedure CPT: Indications: Reflex order-Stress test ICD-10 Codes: Patient History: Medications: SEE CHART Meds past 24 hrs: Pretest Chest Pain: STRESS TEST Lexiscan Protocol Exercise Duration (min:sec): 02:[address] Depressions (mm): Angina Score: Fletcher Score: Resting HR (bpm): 88 Peak HR (bpm): 117 Resting BP (mmHg): 118 / 72 Peak BP (mmHg): 97 / 58 MPHR: 134 Target HR: 114 % MPHR: 87 METS: 1.0 Total Dose: Peak Dose: Atropine: Double Product: 02806 BP Response: Stress Termination: INFUSION COMPLETE Stress Symptoms: NO SYMPTOMS Stress Summary: ECG ANALYSIS Resting ECG: Stress ECG: CONCLUSIONS RESTING EKG: [Normal sinus rhythm, normal EKG] , Heart rate 92 BPM Patient recieved IV infusion of Lexiscan 0.4mg and at peak infusion STRESS EKG showed: [No significant ST-T wave changes diagnostic for ischemia by ST segment analysis] ARRYTHMIAS: [No ectopic rhythms or sustained arrythmias] CONCLUSION: 1. Normal hemodynamic and clinical response to Lexiscan infusion. 2. Non-ischemic EKG response to lexiscan infusion Please refer to the nuclear imaging portion of this stress test for complete interpretation of the study. Dr Nicholas Olivas (Electronically Signed) Final Date: 12 April 2024 12:12
[2024-04-12 12:17] LABS: Glucose,Whole Blood 184 mg/dL (70-110)
--- NOTE | 2024-04-12 13:19 | NM ---
EXAMINATION TYPE: NM stress lexiscan cardiolite DATE OF EXAM: 04/12/2024 COMPARISON: NONE CLINICAL INDICATION: Male, 88 years old with history of chest pain; history of heart attack with prio r catheterization and CABG. History of diabetes. TECHNIQUE: After the intravenous administration of 10.2 mCi Tc 99m Sestamibi - Cardiolite resting SP ECT images acquired 45 minutes post injection. The patient received 0.4mg Lexiscan, 24.5 mCi Tc 99m Sestamibi - Stress images obtained [address] injection FINDINGS: Review of stress and rest SPECT images demonstrates diminished radiotracer uptake in the the anterior left ventricular wall extending laterally on stress imaging less prominent on rest images. Gated an alysis demonstrates ejection fraction measuring 36 % on rest images. IMPRESSION: Acute ischemia is suspected . Further investigation with direct catheter angiogram is adv ised. [facility], , 04/12/2024 1:16 PM
[2024-04-12 14:09] LABS: Glucose,Whole Blood 324 mg/dL (70-110)
[2024-04-12] MEDS: RANOLAZINE 500 MG TAB.ER.12H PO SCH (15:58)
[2024-04-12] MEDS: ISOSORBIDE MONONITRATE ER 15 MG TAB PO SCH (16:00)
[2024-04-12] MEDS ORDERED: QUEtiapine 25 MG TAB PO PRN (16:15)
[2024-04-12] MEDS: carvediloL 3.125 MG TAB PO SCH (17:28)
[2024-04-12 17:56] LABS: Glucose,Whole Blood 120 mg/dL (70-110)
[2024-04-12 20:03] LABS: Glucose,Whole Blood 248 mg/dL (70-110)
[2024-04-12] MEDS: INSULIN DETEMIR (LEVEMIR) 100 UNIT/ML SYR SQ SCH (20:17)
[2024-04-13 02:10] LABS: Glucose,Whole Blood 70 mg/dL (70-110)
[2024-04-13 02:53] LABS: Glucose,Whole Blood 128 mg/dL (70-110)
--- NOTE | 2024-04-13 05:22 | P.PN ---
Subjective Progress Note Date: 04/12/24 This is a 88-year-old male who presented to the emergency department with chest pain on the left side. Patient reports he had been having chest pain earlier in the week and came to the ER and was sleep relieved with 1 nitro. Patient started experiencing chest pain again later and proceeded to take 3 nitros with no relief and called EMS for further evaluation. Patient was brought to the ER and admitted with chest pain with cardiology on consultation. Patient follows with Dr. Dawn and Dr. Mensah in the outpatient setting with past medical history of coronary artery disease with previous CABG, CVA, diabetes mellitus, hypertension, hyperlipidemia, GERD, anxiety, memory impairment. Patient does not drink or smoke and there is no illicit IV drug use. Troponins have been negative and chest x-ray showing no acute process. Per at the bedside who provides most of the history, patient has been having a cough but denies any fever, nausea, or vomiting. There has been no falls or injuries per family. 04/12/2024 Patient is seen in follow-up this morning scheduled to undergo stress testing and currently awaiting cardiology report. Patient is afebrile with no reports of chest pain or shortness of breath. at the bedside and reports patient had increased confusion overnight and is having family stay with patient. Will add Seroquel as needed. Patient will continue on telemetry monitoring. Review of systems: Constitutional: No reports of fatigue, fever, or chills Cardiovascular: No reports of chest pain or palpitations Respiratory: No reports of shortness of breath or cough GI: No reports of nausea, vomiting, or diarrhea : No reports of dysuria or retention Neurovascular: No reports of weakness or numbness All medications have been reviewed The rest of the 14-point review of systems is negative. PHYSICAL EXAMINATION: GENERAL: The patient is alert and oriented x1-2 baseline, not in any acute distress. Well developed, thin built, elderly appearing HEENT: Pupils are round and equally reacting to light. EOMI. No scleral icterus. No conjunctival pallor. Normocephalic, atraumatic. No pharyngeal erythema. No thyromegaly. CARDIOVASCULAR: S1 and S2 muffled PULMONARY: Diminished breath sounds bilaterally otherwise chest is clear to auscultation, no wheezing or crackles noted in the bases. ABDOMEN: Soft, nontender, nondistended, normoactive bowel sounds. No palpable organomegaly. MUSCULOSKELETAL: No joint swelling or deformity. EXTREMITIES: No cyanosis, clubbing, or pedal edema. NEUROLOGICAL: Gross neurological examination did not reveal any focal deficits. SKIN: No rashes. Assessment: Chest pain, ruled out ACS History of hypertension History of hyperlipidemia Diabetes mellitus, type II, insulin-dependent GERD Anxiety Memory impairment History of ischemic cardiomyopathy History of coronary artery disease with previous CABG History of CVA/TIA GI prophylaxis DVT prophylaxis Full code Plan: Patient is continued on telemetry monitoring with cardiology following. Underwent stress testing which was abnormal and cardiology recommends maximizing medical management and continuing on telemetry monitoring and will follow-up with patient in a.m. no immediate plans for cardiac catheterization at this time. Home medications reviewed and resumed as appropriate Continue monitoring Accu-Cheks before meals and at bedtime and treat accordingly with sliding scale. There is a 2D echo ordered and family was concerned as he just had 1 done in February and Dr. Gregg office. Cardiology ordered repeat 2D echo and results pending Does have memory impairment issues and takes gabapentin at night. Patient did have some confusion last night and will add as needed Seroquel. This was discussed with at the bedside Will await cardiac input and recommendations regarding discharge planning possibly within the next 24 hours The impression and plan of care has been dictated by Jolly Beatty, Nurse Practitioner as directed. Dr. Will MD I have performed a history and examination and MDM of this patient, discussed th e same with the dictator, and agree with the dictator's assessment and plan as written ,documented as a scribe. Based on total visit time, I have performed more than 50% of the visit. Objective - Vital Signs Vital signs: Vital Signs Temp 97.6 F 04/12/24 08:00 Pulse 79 04/12/24 08:00 Resp 16 04/12/24 08:00 BP 119/75 04/12/24 08:00 Pulse Ox 97 04/12/24 08:53 FiO2 Intake & Output 04/11/24 04/12/24 04/12/24 18:59 06:59 18:59 Intake Total 240 Balance 240 Weight 65.771 kg Intake: Oral 240 Other: Voiding Method Toilet # Voids 2 - Labs CBC & Chem 7: 04/12/24 02:55 04/12/24 02:50 Labs: Abnormal Lab Results - Last 24 Hours (Table) 04/11/24 04/11/24 04/11/24 Range/Units 07:48 17:20 20:16 RBC (4.40-5.60) X 10*6/uL Hgb (13.0-17.0) g/dL Hct (39.6-50.0) % MPV (9.5-12.2) FL Eosinophils # (0.04-0.35) X 10*3/uL BUN/Creatinine Ratio (12.00-20.00) Ratio Glucose (70-110) mg/dL POC Glucose (mg/dL) 127 H 251 H (70-110) mg/dL Hemoglobin A1c 7.6 H (<=6.0) % 04/12/24 04/12/24 04/12/24 Range/Units 02:50 02:55 05:38 RBC 3.81 L (4.40-5.60) X 10*6/uL Hgb 11.3 L (13.0-17.0) g/dL Hct 34.9 L (39.6-50.0) % MPV 9.0 L (9.5-12.2) FL Eosinophils # 0.38 H (0.04-0.35) X 10*3/uL BUN/Creatinine Ratio 24.11 H (12.00-20.00) Ratio Glucose 131 H (70-110) mg/dL POC Glucose (mg/dL) 155 H (70-110) mg/dL Hemoglobin A1c (<=6.0) % 04/12/24 04/12/24 Range/Units 12:16 14:07 RBC (4.40-5.60) X 10*6/uL Hgb (13.0-17.0) g/dL Hct (39.6-50.0) % MPV (9.5-12.2) FL Eosinophils # (0.04-0.35) X 10*3/uL BUN/Creatinine Ratio (12.00-20.00) Ratio Glucose (70-110) mg/dL POC Glucose (mg/dL) 184 H 324 H (70-110) mg/dL Hemoglobin A1c (<=6.0) %
[2024-04-13 06:20] LABS: Glucose,Whole Blood 112 mg/dL (70-110)
[2024-04-13 09:14] VITALS: BP 116/70; PULSE 82; TEMP 97.6
--- NOTE | 2024-04-13 09:42 | P.PN ---
Subjective Progress Note Date: 04/13/24 Consult reason: chest pain History of present illness: This is an 88-year-old male patient of Dr. Mensah with past medical history of coronary artery disease with previous CABG and most recent PCI of the distal left main in 03/18/2022, hypertension, dyslipidemia, diabetes mellitus type 2, mild to moderate stable dyspnea on exertion, ischemic cardiomyopathy. We have been asked to evaluate the patient for chest pain. Patient apparently presented to the emergency center on 04/05 for chest pain was discharged home on that time. Patient did receive 1 nitroglycerin and the pain was taken away. Patient now presents with chest pain that is rated as a 5 out of 10 according to the patient's . She gave him 3 nitroglycerin and the chest pain was unrelieved. EMS was called and brought the patient into the emergency center for further evaluation. Patient apparently has no chest pain at this time. Due to underlying dementia, patient's communication is done primarily by the patient's . Blood pressure 98/64, heart rate 74, pulse ox 98% on room air. Discussed treatment options with the patient's . She is agreeable for stress test tomorrow. Patient has had breakfast. -EKG: Sinus rhythm with no acute ST-T wave changes. -Chest x-ray: Mild left basilar opacity. -Laboratory studies: WBC 8.5, hemoglobin 10.8. Sodium 134, potassium 4.6, BUN 33 creatinine 0.96. Troponin negative x 3. Magnesium 1.7. -Home cardiac medications: Atorvastatin 80 mg daily, Coreg 3.125 mg twice daily, Zetia 10 mg daily, Nitrostat as needed. -Cardiac catheterization history: March 2022 with stenting to the left main. 95% distal left main stenosis noted, 99% proximal LAD, 95% ostial circumflex, patent TATE to LAD. -Patient underwent 3V CABG in 2001 (TATE-LAD, VG-RCA, VG-OM1) -Echocardiogram performed 02/15/2024 revealed EF of 47%, moderate MR, moderate TR, mild AR. 04/12/2024 Patient seen and examined. No complaints of chest pain. He is scheduled for Lexiscan stress test this morning. Blood pressure readings are much improved, 119/75. Heart rate is running in the 70s, pulse ox 99% on room air. Repeat blood work reveals hemoglobin 11.3. Electrolytes are normal. Creatinine 0.9. Magnesium 1.7. Echocardiogram has been obtained and report is pending. 04/13/2024 Patient seen and examined. Yesterday, patient underwent Lexiscan stress test which revealed acute ischemia is suspected. Testing was reviewed with Dr. Mensah and recommendations are for medical management. Yesterday afternoon, patient was started on Imdur, Ranexa and aspirin. Patient's has been updated at the bedside. And no chest pain overnight. No new concerns. Patient's has in the past held his medications for systolic blood pressure less than 95 or 100 which she may continue. Physical examination: Gen: This is an 88-year-old male in no acute distress VS: reviewed HEENT: Head is atraumatic, normocephalic. Pupils equal, round. Sclerae is anicteric. NECK: Supple. No JVD. LUNGS: Clear to auscultation. No wheezes or rhonchi. No intercostal ret ractions. HEART: Regular rate and rhythm. 2/6 systolic ejection murmur. ABDOMEN: Soft No tenderness. EXTREMITIES: No pedal edema. No calf tenderness. NEUROLOGICAL: Patient is awake. Assessment: Chest pain, acute coronary syndrome ruled out Coronary artery disease with previous CABG and stents Ischemic cardiomyopathy Hyperlipidemia Hypertension Diabetes mellitus type 2 Chronic dyspnea on exertion stable Plan: Continue current cardiac medications Patient is cleared for discharge from cardiology. Patient will follow-up in the office with Dr. Mensah in 1 week. Nurse practitioner note has been reviewed, I agree with documented findings and plan of care. Patient was seen and examined. Objective - Vital Signs Vital signs: Vital Signs Temp 98.1 F 04/13/24 01:17 Pulse 87 04/13/24 01:17 Resp 16 04/13/24 01:17 BP 118/70 04/13/24 01:17 Pulse Ox 98 04/13/24 06:00 FiO2 Intake & Output 04/12/24 04/13/24 04/13/24 18:59 06:59 18:59 Intake Total 118 Balance 118 Intake: Oral 118 Other: Voiding Method Toilet # Voids 2 1 - Labs CBC & Chem 7: 04/12/24 02:55 04/12/24 02:50 Labs: Abnormal Lab Results - Last 24 Hours (Table) 04/12/24 04/12/24 04/12/24 Range/Units 02:50 02:55 12:16 RBC 3.81 L (4.40-5.60) X 10*6/uL Hgb 11.3 L (13.0-17.0) g/dL Hct 34.9 L (39.6-50.0) % MPV 9.0 L (9.5-12.2) FL Eosinophils # 0.38 H (0.04-0.35) X 10*3/uL BUN/Creatinine Ratio 24.11 H (12.00-20.00) Ratio Glucose 131 H (70-110) mg/dL POC Glucose (mg/dL) 184 H (70-110) mg/dL 04/12/24 04/12/24 04/12/24 Range/Units 14:07 17:54 20:01 RBC (4.40-5.60) X 10*6/uL Hgb (13.0-17.0) g/dL Hct (39.6-50.0) % MPV (9.5-12.2) FL Eosinophils # (0.04-0.35) X 10*3/uL BUN/Creatinine Ratio (12.00-20.00) Ratio Glucose (70-110) mg/dL POC Glucose (mg/dL) 324 H 120 H 248 H (70-110) mg/dL 04/13/24 04/13/24 Range/Units 02:51 05:52 RBC (4.40-5.60) X 10*6/uL Hgb (13.0-17.0) g/dL Hct (39.6-50.0) % MPV (9.5-12.2) FL Eosinophils # (0.04-0.35) X 10*3/uL BUN/Creatinine Ratio (12.00-20.00) Ratio Glucose (70-110) mg/dL POC Glucose (mg/dL) 128 H 112 H (70-110) mg/dL
--- NOTE | 2024-04-14 05:25 | P.DS ---
Providers Date of admission: 04/11/24 02:52 Expected date of discharge: 04/13/24 Attending physician: Prakash Garcia MD Consults: 04/11/24 02:33 Consult Physician Urgent Consulting Provider: Rohit Moreno Consult Reason/Comments: chest pain Do you want consulting provider notified?: Yes Primary care physician: Blaine López [facility] Course: Final diagnosis Chest pain, ruled out ACS History of hypertension History of hyperlipidemia Diabetes mellitus, type II, insulin-dependent GERD Anxiety Memory impairment History of ischemic cardiomyopathy History of coronary artery disease with previous CABG History of CVA/TIA GI prophylaxis DVT prophylaxis Full code Discharge disposition Patient is being discharged in a stable condition with guarded prognosis to home with home care as needed. Patient will follow-up with Dr. Dawn in the outpatient setting upon discharge. Patient is to continue with newly added medications of Imdur, Ranexa, aspirin and close outpatient follow-up with Dr. Mensah cardiology as scheduled. Total time taken is greater than 35 minutes. Hospital course This is a 88-year-old male who was recently admitted with chest pain being closely monitored with cardiology following. Patient did undergo stress test which was abnormal revealing acute ischemia suspected. Cardiology reviewed the testing with primary systems trainer Dr. Mensah and patient is being started on Imdur, Ranexa, and aspirin along with other cardiac medications and has been instructed to follow-up in the clinic in 1 week. No plans for immediate cardiac catheterization and recommending maximizing medical management at this time. Patient reports to feeling well and would like to go home. at the bedside and this was discussed and she is agreeable. Please refer to cardiology consultation notes for further HPI. Currently no reports of chest pain, shortness of breath, or palpitations. Patient is afebrile. No reports of nausea or vomiting and patient is tolerating diet. Patient will be discharged home today. Overall guarded prognosis given extensive cardiac history and other comorbidities along with age. Patient is high risk for readmissions. Physical exam: Gen: This is a 88-year-old male who is awake, alert and oriented x 1-2, baseline, well-developed, thin build, elderly appearing HEENT: Head is atraumatic, normocephalic. Pupils equal, round. Sclerae is anicteric. NECK: Supple. No JVD. No lymphadenopathy. No thyromegaly. LUNGS: Clear to auscultation. No wheezes or rhonchi. No intercostal retractions. HEART: S1, S2 are muffled ABDOMEN: Soft. Thin bowel sounds are present. No masses. No tenderness. EXTREMITIES: No pedal edema. No calf tenderness. NEUROLOGICAL: Patient is awake, alert and oriented x 12 baseline. Cranial nerves 2 through 12 are grossly intact. Please refer to medication reconciliation sheet for a list of medications. The impression and plan of care has been dictated by Jolly Beatty, Nurse Practitioner as directed. Dr. Will MD I have performed a history and examination and MDM of this patient, discussed the same with the dictator, and agree with the dictator's assessment and plan as written ,documented as a scribe. Based on total visit time, I have performed more than 50% of the visit. Patient Condition at Discharge: Fair Plan - Discharge Summary Discharge Rx Participant: No New Discharge Prescriptions: New Ranolazine [Ranexa] 500 mg PO Q12HR #60 tab Triamcinolone 0.1% Ointment [Kenalog 0.1% Ointment] 1 applic TOPICAL BID #80 gm Aspirin 81 mg PO DAILY #30 tab Isosorbide Mononitrate ER [Imdur] 15 mg PO DAILY #30 tab Acetaminophen Tab [Tylenol] 650 mg PO Q6HR PRN tab PRN Reason: Fever And/ Or Pain Continue Insulin Glargine,Hum.rec.anlog [Lantus Solostar Pen] 8 unit SQ DAILY Gabapentin [Neurontin] 100 mg PO HS Nitroglycerin Sl Tabs [Nitrostat] 0.4 mg SUBLINGUAL Q5M PRN PRN Reason: Chest Pain Tamsulosin HCl [Flomax] 0.4 mg PO DAILY ARIPiprazole [Abilify] 5 mg PO DAILY Insulin Aspart [NovoLOG Flexpen] 12 units SQ AC-BRKFST metFORMIN HCL ER [Glucophage XR] 500 mg PO BID@0900,1700 Galantamine HBr [Razadyne ER] 24 mg PO DAILY Memantine [Namenda] 10 mg PO BID@0900,1700 Atorvastatin [Lipitor] 80 mg PO DAILY carvediloL [Coreg] 3.125 mg PO BID@0900,1700 Insulin Aspart [NovoLOG Flexpen] 0 - 6 units SQ AC-SUPPER Discontinued Ezetimibe [Zetia] 10 mg PO DAILY Discharge Medication List Gabapentin [Neurontin] 100 mg PO HS 03/14/17 [History] Insulin Glargine,Hum.rec.anlog [Lantus Solostar Pen] 8 unit SQ DAILY 03/14/17 [History] Nitroglycerin Sl Tabs [Nitrostat] 0.4 mg SUBLINGUAL Q5M PRN 04/26/19 [History] Tamsulosin HCl [Flomax] 0.4 mg PO DAILY 04/26/19 [History] ARIPiprazole [Abilify] 5 mg PO DAILY 03/16/22 [History] Atorvastatin [Lipitor] 80 mg PO DAILY 03/16/22 [History] Memantine [Namenda] 10 mg PO BID@0900,1700 03/16/22 [History] Insulin Aspart [NovoLOG Flexpen] 12 units SQ AC-BRKFST 10/20/22 [History] metFORMIN HCL ER [Glucophage XR] 500 mg PO BID@0900,1700 10/20/22 [History] Galantamine HBr [Razadyne ER] 24 mg PO DAILY 04/11/24 [History] Insulin Aspart [NovoLOG Flexpen] 0 - 6 units SQ AC-SUPPER 04/11/24 [History] carvediloL [Coreg] 3.125 mg PO BID@0900,1700 04/11/24 [History] Acetaminophen Tab [Tylenol] 650 mg PO Q6HR PRN tab 04/13/24 [Rx] Aspirin 81 mg PO DAILY #30 tab 04/13/24 [Rx] Isosorbide Mononitrate ER [Imdur] 15 mg PO DAILY #30 tab 04/13/24 [Rx] Ranolazine [Ranexa] 500 mg PO Q12HR #60 tab 04/13/24 [Rx] Triamcinolone 0.1% Ointment [Kenalog 0.1% Ointment] 1 applic TOPICAL BID #80 gm 04/13/24 [Rx] Follow up Appointment(s)/Referral(s): [facility], [NON-STAFF] - As Needed Yelitza Mensah MD [STAFF PHYSICIAN] - 04/23/24 8:45 am Blaine Dawn MD [Primary Care Provider] - 1-2 days Patient Instructions/Handouts: Isosorbide Mononitrate (By mouth), Carvedilol (By mouth), Ranolazine (By mouth) Activity/Diet/Wound Care/Special Instructions: Activity limited until follow-up Follow-up with primary care provider on discharge Follow-up with systems trainer in 1 week Continue taking medications as prescribed and monitor blood pressure readings and keep a diary for primary and cardiology follow-up Discharge/Stand Alone Forms: Who Do I Call?, Assisted Living Facilities, Community Resources, Help In The Home Discharge Disposition: HOME SELF-CARE
== END 2024-04-13 12:27 | disposition home or self-care (01) ==
LOC: EC 00:14 → 6NMEDSUR 02:33 → UNDOADMOB 02:33 → INTOOBSV 02:52 → 6NMEDSUR 02:52
PROVIDERS: ADMIT Internal Medicine; ATTEND Internal Medicine
DX: R07.89 Other chest pain (principal); I25.10 Atherosclerotic heart disease of native coronary artery without angina pectoris; I25.5 Ischemic cardiomyopathy; I08.3 Combined rheumatic disorders of mitral, aortic and tricuspid valves; I10 Essential (primary) hypertension; E78.5 Hyperlipidemia, unspecified; E11.9 Type 2 diabetes mellitus without complications; F03.94 Unspecified dementia, unspecified severity, with anxiety; K21.9 Gastro-esophageal reflux disease without esophagitis; I25.2 Old myocardial infarction; R51.9 Headache, unspecified; Z79.02 Long term (current) use of antithrombotics/antiplatelets; Z79.4 Long term (current) use of insulin; Z79.84 Long term (current) use of oral hypoglycemic drugs; Z79.82 Long term (current) use of aspirin; Z79.899 Other long term (current) drug therapy; Z88.5 Allergy status to narcotic agent; Z91.048 Other nonmedicinal substance allergy status; Z95.5 Presence of coronary angioplasty implant and graft; Z86.73 Personal history of transient ischemic attack (TIA), and cerebral infarction without residual deficits; Z95.1 Presence of aortocoronary bypass graft
CPT/HCPCS: 99285; 36415; 94760; 93005; 93017; 93306; 80061; 80053; 80048; 83735 ×2; 84484; 85025 ×2; 85610; 85730; 83036; 71046; 78452; G0378; A9500; J1644 ×2; J2785

== ENCOUNTER 2024-04-14 05:15 | Observation (INO) | payer MEDICARE ==
--- NOTE | 2024-04-14 06:05 | ED ---
General Adult HPI - General Chief complaint: Chest Pain Stated complaint: Chest pain Time Seen by Provider: 04/14/24 05:28 Source: patient, EMS, RN notes reviewed, old records reviewed Mode of arrival: EMS - History of Present Illness Initial comments: Patient is a 88-year-old male who presents emergency department complaining of apparently chest pain. Has a history of CAD, diabetes, hypertension, hyperlipidemia, dementia. Apparently, patient was complaining of chest pain when he awoke from sleep and called EMS. Patient currently denies any chest pain. He is complaining of right shoulder pain. Patient was recently admitted on April 11, 3 days ago for similar complaints. This is the third time this month he has been seen for chest pain. Patient had a stress test done on April 12 which does show some acute ischemia present. Medical management wa s recommended at that time. He is currently alert and oriented x 2 which is his baseline apparently. He is only complaining of musculoskeletal right shoulder pain that is worse with movement. Denies chest pain at this time. Remainder the history obtained from patient's when she arrived. Apparently patient has been having chest pain since discharge yesterday. Seem to be very mild. Seem to improve with sublingual nitroglycerin at home. Woke up again with it this evening which is why she called EMS at 4:30 AM. Was just discharged yesterday morning. - Related Data Home Medications Medication Instructions Recorded Confirmed Gabapentin [Neurontin] 100 mg PO HS 03/14/17 04/14/24 Insulin Glargine,Hum.rec.anlog 8 unit SQ DAILY 03/14/17 04/14/24 [Lantus Solostar Pen] Nitroglycerin Sl Tabs [Nitrostat] 0.4 mg SUBLINGUAL Q5M PRN 04/26/19 04/14/24 Tamsulosin HCl [Flomax] 0.4 mg PO DAILY 04/26/19 04/14/24 ARIPiprazole [Abilify] 5 mg PO DAILY 03/16/22 04/14/24 Atorvastatin [Lipitor] 80 mg PO DAILY 03/16/22 04/14/24 Memantine [Namenda] 10 mg PO BID@0900,1700 03/16/22 04/14/24 Insulin Aspart [NovoLOG Flexpen] 12 units SQ -BRKFST 10/20/22 04/14/24 metFORMIN HCL ER [Glucophage XR] 500 mg PO BID@0900,1700 10/20/22 04/14/24 Galantamine HBr [Razadyne ER] 24 mg PO DAILY 04/11/24 04/14/24 Insulin Aspart [NovoLOG Flexpen] 0 - 6 units SQ AC-SUPPER 04/11/24 04/14/24 carvediloL [Coreg] 3.125 mg PO BID@0900,1700 04/11/24 04/14/24 Previous Rx's Medication Instructions Recorded Acetaminophen Tab [Tylenol] 650 mg PO Q6HR PRN tab 04/13/24 Aspirin 81 mg PO DAILY #30 tab 04/13/24 Isosorbide Mononitrate ER [Imdur] 15 mg PO DAILY #30 tab 04/13/24 Ranolazine [Ranexa] 500 mg PO Q12HR #60 tab 04/13/24 Triamcinolone 0.1% Ointment 1 applic TOPICAL BID #80 gm 04/13/24 [Kenalog 0.1% Ointment] Allergies Allergy/AdvReac Type Severity Reaction Status Date / Time codeine Allergy Unknown Verified 04/14/24 09:07 povidone-iodine Allergy Rash/Hives Verified 04/14/24 09:07 [From Betadine] soap [From Betadine] Allergy Rash/Hives Verified 04/14/24 09:07 Review of Systems ROS Statement: Those systems with pertinent positive or pertinent negative responses have been documented in the HPI. Review of Systems: CONST: Denies fever EYES: Denies blurry vision ENT: Denies nasal congestion C/V: Denies Chest pain RESP: Denies shortness of breath GI: Denies abdominal pain : Denies dysuria SKIN: Denies rash. MSK: Endorses right shoulder pain NEURO: Denies headache ROS Other: All systems not noted in ROS Statement are negative. Past Medical History Past Medical History: Coronary Artery Disease (CAD), Cancer, CVA/TIA, Diabetes Mellitus, GERD/Reflux, Hyperlipidemia, Hypertension, Memory Impairment, Myoca rdial Infarction ([place]) Additional Past Medical History / Comment(s): Hx skin cancer, head and thigh. Neuropathy feet/lower legs. Chronic dry skin and runny nose. 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 CABG 2003. 5 stents placed Apr 17 [facility]. Cataracts removed. COLONOSCOPY, NUMEROUS SKIN CANCER SPOTS REMOVED Past Anesthesia/Blood Transfusion Reactions: No Reported Reaction Date of Last Stent Placement:: 04/2019 Past Psychological History: Anxiety Smoking Status: Former smoker Past Alcohol Use History: Rare Past Drug Use History: None Reported - Past Family History Mother Family Medical History: Mitral Valve Prolapse (MVP) Additional Family Medical History / Comment(s): age 62. Father Family Medical History: Cancer Additional Family Medical History / Comment(s): age 72, prostate cancer. General Exam - General Exam Comments Initial Comments: General: Appears in no acute distress. HEAD: Normal with no signs of head trauma. EYES: PERRLA, EOMI, conjunctiva normal, no discharge. ENT: Hearing grossly intact, normal oropharynx. RESPIRATORY: Clear breath sounds bilaterally. No wheezes, rales, or rhonchi. C/V: Regular rate and rhythm. S1 and S2 auscultated, no edema, peripheral pulses 2+ and intact throughout ABD: Abd is soft, nontender, nondistended EXT: Normal range of motion, no obvious deformity. Tenderness to palpation of the right shoulder with decreased range of motion secondary to pain. No obvious deformity or injury. SKIN: No rashes or lesions observed on exposed skin. NEURO: Alert and oriented x 2, with history of dementia.. Course Vital Signs 04/14/24 04/14/24 04/14/24 05:19 06:55 08:00 Temperature 97.8 F Pulse Rate 77 76 86 Respiratory 18 18 19 Rate Blood Pressure 130/77 123/67 136/69 O2 Sat by Pulse 96 97 98 Oximetry 04/14/24 04/14/24 04/14/24 10:27 12:52 13:38 Temperature Pulse Rate 74 71 91 Respiratory 18 18 18 Rate Blood Pressure 108/71 119/82 102/56 O2 Sat by Pulse 97 97 96 Oximetry Medical Decision Making - Medical Decision Making Was pt. sent in by a medical professional or institution ([facility] Hernandez, ASSURANCE ASSOCIATE, urgent care, hospital, or halfway...) When possible be specific @ -No Did you speak to anyone other than the patient for history (EMS, parent, family, police, friend...)? What history was obtained from this source @ -EMS provided most of the patient's history. Spoke with patient's as well. Did you review nursing and triage notes (agree or disagree)? Why? @ -I reviewed and agree with nursing and triage notes Were old charts reviewed (outside hosp., previous admission, EMS record, old EKG, old radiological studies, urgent care reports/EKG's, halfway records)? Report findings @ -Reviewed recent visit which did show a stress test that resulted in what appeared to be ischemic changes. Differential Diagnosis (chest pain, altered mental status, abdominal pain women, abdominal pain men, vaginal bleeding, weakness, fever, dyspnea, syncope, headache, dizziness, GI bleed, back pain, seizure, CVA, palpatations, mental health, musculoskeletal)? @ -Differential Chest Pain: Stable Angina, Unstable Angina, STEMI, NSTEMI Aortic Dissection, Pneumothorax, Musculoskeletal, Esophageal Spasm GERD, Cholecystitis, Pancreatitis, Zoster, this is not meant to be an all-inclusive list. EKG interpreted by me (3pts min.). @ -As above X-rays interpreted by me (1pt min.). @ -Chest x-ray reveals no obvious acute cardiopulmonary process. Right sh oulder x-ray reveals chronic degenerative changes present. CT interpreted by me (1pt min.). @ -None done U/S interpreted by me (1pt. min.). @ -None done What testing was considered but not performed or refused? (CT, X-rays, U/S, labs)? Why? @ -None What meds were considered but not given or refused? Why? @ -None Did you discuss the management of the patient with other professionals (professionals i.e. ANTONIETA Hernandez, ASSURANCE ASSOCIATE, lab, RT, psych nurse, delinquency prevention social worker, prevention coordinator, teacher, escrow officer, foster care case manager)? Give summary @ -Spoke with RADHA Azevedo of [facility] who accepted the admission. Was smoking cessation discussed for >3mins.? @ -No Was critical care preformed (if so, how long)? @ -No Were there social determinants of health that impacted care today? How? (Homelessness, low income, unemployed, alcoholism, drug addiction, transportation, low edu. Level, literacy, decrease access to med. care, longterm, rehab)? @ -No Was there de-escalation of care discussed even if they declined (Discuss DNR or withdrawal of care, Hospice)? DNR status @ -No What co-morbidities impacted this encounter? (DM, HTN, Smoking, COPD, CAD, Cancer, CVA, ARF, Chemo, Hep., AIDS, mental health diagnosis, sleep apnea, mo rbid obesity)? @ -CAD., Significant cardiac history. Was patient admitted / discharged? Hospital course, mention meds given and route, prescriptions, significant lab abnormalities, going to OR and other pertinent info. @ -Based on patient's presentation and physical exam, patient presents emergen cy department complaining of right shoulder pain. EMS was called for chest pain. Patient had chest pain when he awoke from sleep apparently but is only complaining of right shoulder pain upon arrival to the ER. He will be given Tylenol. We will obtain cardiac workup as well as right shoulder x-ray. Patient was in agreement this plan. He has dementia and appears to be at his baseline. He has known recent history of stress test that resulted in ischemic changes. Vitals currently within acceptable limits. EKG shows no signs of acute ischemia.X-rays negative for any obvious acute process.Studies returned unremarkable. Troponin is undetectable. Discussed results with patient's , and patient will be admitted to observation with troponin trending and evaluation by cardiology. Spoke with RADHA Azevedo of [facility] who accepted the admission. Undiagnosed new problem with uncertain prognosis? @ -No Drug Therapy requiring intensive monitoring for toxicity (Heparin, Nitro, Insulin, Cardizem)? @ -No Were any procedures done? @ -No Diagnosis/symptom? @ -Chest pain, shoulder pain Acute, or Chronic, or Acute on Chronic? @ -Acute on chronic Uncomplicated (without systemic symptoms) or Complicated (systemic symptoms)? @ -Complicated Side effects of treatment? @ -None Exacerbation, Progression, or Severe Exacerbation] @ -No Poses a threat to life or bodily function? @ -Potentially, yes - Lab Data Result diagrams: 04/14/24 05:30 04/14/24 05:30 Lab Results 04/14/24 04/14/24 04/14/24 Range/Units 05:30 05:30 05:30 WBC 7.1 (3.8-10.6) k/uL RBC 3.96 L (4.30-5.90) m/uL Hgb 11.9 L (13.0-17.5) gm/dL Hct 36.8 L (39.0-53.0) % MCV 92.9 (80.0-100.0) fL MCH 30.1 (25.0-35.0) pg MCHC 32.3 (31.0-37.0) g/dL RDW 14.4 (11.5-15.5) % Plt Count 208 (150-450) k/uL MPV 7.7 Neutrophils % 62 % Lymphocytes % 25 % Monocytes % 6 % Eosinophils % 5 % Basophils % 0 % Neutrophils # 4.4 (1.3-7.7) k/uL Lymphocytes # 1.8 (1.0-4.8) k/uL Monocytes # 0.5 (0-1.0) k/uL Eosinophils # 0.3 (0-0.7) k/uL Basophils # 0.0 (0-0.2) k/uL PT 10.7 (10.0-12.5) sec INR 1.0 (<1.2) APTT 22.8 (22.0-30.0) sec Sodium 136 L (137-145) mmol/L Potassium 4.8 (3.5-5.1) mmol/L Chloride 102 (98-107) mmol/L Carbon Dioxide 26 (22-30) mmol/L Anion Gap 8 mmol/L BUN 22 H (9-20) mg/dL Creatinine 0.99 (0.66-1.25) mg/dL Est GFR (CKD-EPI)AfAm 79 (>60 ml/min/1.73 sqM) Est GFR (CKD-EPI)NonAf 69 (>60 ml/min/1.73 sqM) Glucose 145 H (74-99) mg/dL Calcium 9.6 (8.4-10.2) mg/dL Magnesium 1.9 (1.6-2.3) mg/dL Total Bilirubin 0.3 (0.2-1.3) mg/dL AST 34 (17-59) U/L ALT 31 (4-49) U/L Alkaline Phosphatase 102 (38-126) U/L Troponin I (0.000-0.034) ng/mL Total Protein 6.8 (6.3-8.2) g/dL Albumin 4.2 (3.5-5.0) g/dL 04/14/24 Range/Units 05:30 WBC (3.8-10.6) k/uL RBC (4.30-5.90) m/uL Hgb (13.0-17.5) gm/dL Hct (39.0-53.0) % MCV (80.0-100.0) fL MCH (25.0-35.0) pg MCHC (31.0-37.0) g/dL RDW (11.5-15.5) % Plt Count (150-450) k/uL MPV Neutrophils % % Lymphocytes % % Monocytes % % Eosinophils % % Basophils % % Neutrophils # (1.3-7.7) k/uL Lymphocytes # (1.0-4.8) k/uL Monocytes # (0-1.0) k/uL Eosinophils # (0-0.7) k/uL Basophils # (0-0.2) k/uL PT (10.0-12.5) sec INR (<1.2) APTT (22.0-30.0) sec Sodium (137-145) mmol/L Potassium (3.5-5.1) mmol/L Chloride (98-107) mmol/L Carbon Dioxide (22-30) mmol/L Anion Gap mmol/L BUN (9-20) mg/dL Creatinine (0.66-1.25) mg/dL Est GFR (CKD-EPI)AfAm (>60 ml/min/1.73 sqM) Est GFR (CKD-EPI)NonAf (>60 ml/min/1.73 sqM) Glucose (74-99) mg/dL Calcium (8.4-10.2) mg/dL Magnesium (1.6-2.3) mg/dL Total Bilirubin (0.2-1.3) mg/dL AST (17-59) U/L ALT (4-49) U/L Alkaline Phosphatase (38-126) U/L Troponin I <0.012 (0.000-0.034) ng/mL Total Protein (6.3-8.2) g/dL Albumin (3.5-5.0) g/dL - EKG Data -: EKG Interpreted by Me EKG Comments: 12-lead Electrocardiogram Interpretation Note EKG was reviewed and interpreted by myself. 12-lead ECG performed at 0530 is interpreted by me as revealing normal sinus rhythm at a rate of 77 beats per minute. Left axis deviation. IL interval is 145 ms, QRS duration is 107 ms, QTc is 414 ms. PVCs present.. There were no ST or T wave abnormalities to suggest myocardial ischemia or injury. R wave progression across the precordium was satisfactory. By my interpretation this EKG is non-diagnostic for acute ischemia. Compared with EKG from April 12, 2024 with no obvious significant change. Disposition Clinical Impression: Chest pain, Right shoulder pain Disposition: ADMITTED IP TO THIS [facility] Condition: Stable Time of Disposition: 07:00
[2024-04-14 06:21] LABS: Basophils % (A) 0 %; Eosinophils # (A) 0.3 k/uL (0-0.7); Eosinophils % (A) 5 %; HCT 36.8 % (39.0-53.0); HGB 11.9 gm/dL (13.0-17.5); Lymphocytes # (A) 1.8 k/uL (1.0-4.8); Lymphocytes % (A) 25 %; MCH 30.1 pg (25.0-35.0); MCHC 32.3 g/dL (31.0-37.0); MCV 92.9 fL (80.0-100.0); Mean Platelet Volume 7.7; Monocytes # (A) 0.5 k/uL (0-1.0); Monocytes % (A) 6 %; Neutrophils # (A) 4.4 k/uL (1.3-7.7); Neutrophils % (A) 62 %; Platelet Count 208 k/uL (150-450); RBC 3.96 m/uL (4.30-5.90); RDW 14.4 % (11.5-15.5); WBC 7.1 k/uL (3.8-10.6)
[2024-04-14] MEDS: ASPIRIN 81 MG PO STA (06:21)
[2024-04-14] MEDS: SODIUM CHLORIDE 0.9% 1,000 ML IV STA (06:23)
[2024-04-14 06:30] LABS: Partial Thromboplastin Time 22.8 sec (22.0-30.0); Prothrombin Time 10.7 sec (10.0-12.5)
[2024-04-14 06:32] LABS: ALT 31 U/L (4-49); AST 34 U/L (17-59); African American GFR (CKD) 79 (>60 ml/min/1.73 sqM); Albumin 4.2 g/dL (3.5-5.0); Alkaline Phosphatase 102 U/L (38-126); Anion Gap 8 mmol/L; Blood Urea Nitrogen 22 mg/dL (9-20); Calcium 9.6 mg/dL (8.4-10.2); Carbon Dioxide 26 mmol/L (22-30); Chloride 102 mmol/L (98-107); Glucose 145 mg/dL (74-99); Magnesium 1.9 mg/dL (1.6-2.3); Non-African American GFR(CKD) 69 (>60 ml/min/1.73 sqM); Potassium 4.8 mmol/L (3.5-5.1); Sodium 136 mmol/L (137-145); Total Bilirubin 0.3 mg/dL (0.2-1.3); Total Protein 6.8 g/dL (6.3-8.2)
[2024-04-14] MEDS ORDERED: ACETAMINOPHEN TAB 325 MG TAB PO PRN (06:45)
[2024-04-14] MEDS ORDERED: NALOXONE 0.4 MG/ML 1 ML VIAL IV PRN (06:45)
[2024-04-14] MEDS ORDERED: ONDANSETRON 4 MG/2 ML VIAL IVP PRN (06:45)
--- NOTE | 2024-04-14 07:40 | XR ---
EXAMINATION TYPE: XR chest 2V DATE OF EXAM: 04/14/2024 6:20 AM COMPARISON: 04/11/2024 CLINICAL INDICATION: Male, 88 years old with history of Chest Pain, TECHNIQUE: XR chest 2V view(s) obtained. FINDINGS: The heart size is normal. The pulmonary vasculature is normal. Mild linear opacities at the left base. Sternotomy wires are present from prior CABG. IMPRESSION: 1. Correlate for some minimal left lower lobe atelectasis or pneumonia. [facility], , 04/14/2024 7:38 AM
--- NOTE | 2024-04-14 07:42 | XR ---
EXAMINATION TYPE: XR shoulder limited RT DATE OF EXAM: 04/14/2024 6:21 AM COMPARISON: None. CLINICAL INDICATION: Male, 88 years old with history of pain, pain TECHNIQUE: 2 view(s) obtained. FINDINGS: Degenerative joint changes are at the right shoulder. No fractures evident. Acromioclavicular junctio n as visualized appears normal. IMPRESSION: 1. Degenerative changes right shoulder [facility], , 04/14/2024 7:40 AM
[2024-04-14] MEDS: ASPIRIN 81 MG PO SCH (12:40)
[2024-04-14] MEDS: ATORVASTATIN 80 MG TAB PO SCH (12:40)
[2024-04-14] MEDS: RANOLAZINE 500 MG TAB.ER.12H PO SCH (12:41)
[2024-04-14] MEDS: KETOROLAC 15 MG/ML 1 ML VIAL IVP STA (12:42)
[2024-04-14] MEDS ORDERED: NITROGLYCERIN SL TABS 0.4 MG TAB SUBLINGUAL PRN (12:48)
[2024-04-14] MEDS ORDERED: MELOXICAM 7.5 MG TAB PO SCH (13:00)
--- NOTE | 2024-04-14 13:01 | P.CRDCN ---
History of Present Illness Consult date: 04/14/24 Consult reason: chest pain History of present illness: This is an 88-year-old male patient of Dr. Mensah with past medical history of coronary artery disease with previous CABG and most recent PCI of the distal left main in 03/18/2022, hypertension, dyslipidemia, diabetes mellitus type 2, mild to moderate stable dyspnea on exertion, ischemic cardiomyopathy. We have been asked to evaluate the patient for chest pain. Patient apparently presented to the emergency center on 04/05 for chest pain was discharged home on that time. Patient did receive 1 nitroglycerin and the pain was taken away. Patient then presented on 04/11 with chest pain that is rated as a 5 out of 10 according to the patient's . She gave him 3 nitroglycerin and the chest pain was unrelieved. EMS was called and brought the patient into the emergency center for further evaluation. Patient was admitted to the hospital underwent a Lexiscan stress test which came back abnormal with acute ischemia suspected. Case was discussed with Dr. Mensah with recommendations for medical management. Patient was started on Imdur, Ranexa and aspirin and discharged home. Patient developed chest pain across his chest which he states has been going on and off for a week. It can happen with or without activity. He does not think the new medications have made any difference. Patient's gave him a nitroglycerin and over 45 minutes is seem to gradually decreased and resolved. Patient had another episode of chest pain at 4:30 in the morning that went into his jaw wi thout any other symptoms and she decided to bring the patient into the hospital. Blood pressure 108/71, heart rate 74. Due to underlying dementia, patient's communication is done primarily by the mariela flowers's . Reviewed results of previous testing done with the patient and his and plan is to watch for the next 24 hours. If patient has more episodes of chest pain. May discuss further ischemic workup. For now, 1 dose of IV Toradol ordered as there could be a component of musculoskeletal etiology. -EKG: Sinus rhythm with no acute ST-T wave changes, occasional PVC. -Chest x-ray: Minimal left lower lobe atelectasis or pneumonia. -Right shoulder x-ray reveals degenerative changes. -Laboratory studies: WBC 7.1, hemoglobin 9.9, potassium 4.8, creatinine 0.99. Troponin negative x 3. -Home cardiac medications: Aspirin 81 mg daily, atorvastatin 80 mg daily, Coreg 3.125 mg twice daily, Imdur 15 mg daily, Ranexa 500 mg twice daily, Nitrostat as needed. -Cardiac catheterization history: March 2022 with stenting to the left main. 95% distal left main stenosis noted, 99% proximal LAD, 95% ostial circumflex, patent TATE to LAD. -Patient underwent 3V CABG in 2001 (TATE-LAD, VG-RCA, VG-OM1) -Lexiscan Cardiolite stress test performed on 04/12/2024: Acute ischemia is suspected. -Echocardiogram performed 04/12/2024 revealed EF of 40 to 45%, globally reduced systolic function, mild mitral digitation, mild tricuspid regurgitation, RVSP 30 mmHg. Review Of Systems: At the time of my exam: CONSTITUTIONAL: Denies fever or chills. HEENT: Denies blurred vision, vision changes, or eye pain. Denies hemoptysis CARDIOVASCULAR: Denies chest pain. Denies orthopnea. Denies PND. Denies palpita tions RESPIRATORY: Denies shortness of breath. GASTROINTESTINAL: Denies abdominal pain. Denies nausea or vomiting. HEMATOLOGIC: Denies bleeding disorders. GENITOURINARY: Denies any blood in urine. SKIN: Denies puritis. Denies rash. Physical examination: Gen: This is an 88-year-old male in no acute distress VS: reviewed HEENT: Head is atraumatic, normocephalic. Pupils equal, round. Sclerae is a nicteric. NECK: Supple. No JVD. LUNGS: Clear to auscultation. No wheezes or rhonchi. No intercostal retractions. HEART: Regular rate and rhythm. 2/6 systolic ejection murmur. ABDOMEN: Soft No tenderness. EXTREMITIES: No pedal edema. No calf tenderness. NEUROLOGICAL: Patient is awake. Assessment: Chest pain, acute coronary syndrome ruled out Recurrent chest pain with possible component of musculoskeletal etiology as well as known abnormal Lexiscan stress test performed on 04/12 Coronary artery disease with previous CABG and stents Ischemic cardiomyopathy Hyperlipidemia Hypertension Diabetes mellitus type 2 Chronic dyspnea on exertion stable Plan: Resume patient's home cardiac medications Add 1 dose of Toradol 15 mg IV Reviewed Maureen scan imaging and regarding anterior ischemia this corresponds to the previously noted LAD stenosis. The inferior lateral ischemia may be new. Monitor patient overnight for symptoms No need to repeat echocardiogram as this was done this week Further recommendations to follow based upon clinical course Thank you kindly for this consultation. Nurse practitioner note has been reviewed, I agree with documented findings and plan of care. Patient was seen and examined. Past Medical History Past Medical History: Coronary Artery Disease (CAD), Cancer, CVA/TIA, Diabetes Mellitus, GERD/Reflux, Hyperlipidemia, Hypertension, Memory Impairment, Myocardial Infarction ([place]) Additional Past Medical History / Comment(s): Hx skin cancer, head and thigh. Neuropathy feet/lower legs. Chronic dry skin and runny nose. 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 CABG 2003. 5 stents placed Apr 17 [facility]. Cataracts removed. COLONOSCOPY, NUMEROUS SKIN CANCER SPOTS REMOVED Past Anesthesia/Blood Transfusion Reactions: No Reported Reaction Date of Last Stent Placement:: 04/2019 Past Psychological History: Anxiety Smoking Status: Former smoker Past Alcohol Use History: Rare Past Drug Use History: None Reported - Past Family History Mother Family Medical History: Mitral Valve Prolapse (MVP) Additional Family Medical History / Comment(s): age 62. Father Family Medical History: Cancer Additional Family Medical History / Comment(s): age 72, prostate cancer. Medications and Allergies Home Medications Medication Instructions Recorded Confirmed Type Gabapentin [Neurontin] 100 mg PO HS 03/14/17 04/14/24 History Insulin Glargine,Hum.rec.anlog 8 unit SQ DAILY 03/14/17 04/14/24 History [Lantus Solostar Pen] Nitroglycerin Sl Tabs [Nitrostat] 0.4 mg SUBLINGUAL Q5M PRN 04/26/19 04/14/24 History Tamsulosin HCl [Flomax] 0.4 mg PO DAILY 04/26/19 04/14/24 History ARIPiprazole [Abilify] 5 mg PO DAILY 03/16/22 04/14/24 History Atorvastatin [Lipitor] 80 mg PO DAILY 03/16/22 04/14/24 History Memantine [Namenda] 10 mg PO BID@0900,1700 03/16/22 04/14/24 History Insulin Aspart [NovoLOG Flexpen] 12 units SQ AC-BRKFST 10/20/22 04/14/24 History metFORMIN HCL ER [Glucophage XR] 500 mg PO BID@0900,1700 10/20/22 04/14/24 History Galantamine HBr [Razadyne ER] 24 mg PO DAILY 04/11/24 04/14/24 History Insulin Aspart [NovoLOG Flexpen] 0 - 6 units SQ AC-SUPPER 04/11/24 04/14/24 History carvediloL [Coreg] 3.125 mg PO BID@0900,1700 04/11/24 04/14/24 History Acetaminophen Tab [Tylenol] 650 mg PO Q6HR PRN tab 04/13/24 04/14/24 Rx Aspirin 81 mg PO DAILY #30 tab 04/13/24 04/14/24 Rx Isosorbide Mononitrate ER [Imdur] 15 mg PO DAILY #30 tab 04/13/24 04/14/24 Rx Ranolazine [Ranexa] 500 mg PO Q12HR #60 tab 04/13/24 04/14/24 Rx Triamcinolone 0.1% Ointment 1 applic TOPICAL BID #80 gm 04/13/24 04/14/24 Rx [Kenalog 0.1% Ointment] Allergies Allergy/AdvReac Type Severity Reaction Status Date / Time codeine Allergy Unknown Verified 04/14/24 09:07 povidone-iodine Allergy Rash/Hives Verified 04/14/24 09:07 [From Betadine] soap [From Betadine] Allergy Rash/Hives Verified 04/14/24 09:07 Physical Exam Vitals: Vital Signs Temp Pulse Resp BP Pulse Ox 04/14/24 08:00 86 19 136/69 98 04/14/24 06:55 76 18 123/67 97 04/14/24 05:19 97.8 F 77 18 130/77 96 Intake and Output 04/13/24 04/14/24 04/14/24 22:59 06:59 14:59 Other: Weight 68.039 kg Results 04/14/24 05:30 04/14/24 05:30 Cardiac Enzymes 04/14/24 04/14/24 04/14/24 Range/Units 05:30 05:30 08:19 AST 34 (17-59) U/L Troponin I <0.012 <0.012 (0.000-0.034) ng/mL Coagulation 04/14/24 Range/Units 05:30 PT 10.7 (10.0-12.5) sec APTT 22.8 (22.0-30.0) sec CBC 04/14/24 Range/Units 05:30 WBC 7.1 (3.8-10.6) k/uL RBC 3.96 L (4.30-5.90) m/uL Hgb 11.9 L (13.0-17.5) gm/dL Hct 36.8 L (39.0-53.0) % Plt Count 208 (150-450) k/uL Comprehensive Metabolic Panel 04/14/24 Range/Units 05:30 Sodium 136 L (137-145) mmol/L Potassium 4.8 (3.5-5.1) mmol/L Chloride 102 (98-107) mmol/L Carbon Dioxide 26 (22-30) mmol/L BUN 22 H (9-20) mg/dL Creatinine 0.99 (0.66-1.25) mg/dL Glucose 145 H (74-99) mg/dL Calcium 9.6 (8.4-10.2) mg/dL AST 34 (17-59) U/L ALT 31 (4-49) U/L Alkaline Phosphatase 102 (38-126) U/L Total Protein 6.8 (6.3-8.2) g/dL Albumin 4.2 (3.5-5.0) g/dL Current Medications Generic Name Dose Route Start Last Admin Trade Name Freq PRN Reason Stop Dose Admin Acetaminophen 650 mg 04/14/24 06:45 Acetaminophen Tab 325 Mg Tab PO Q6HR PRN Mild Pain or Fever > 100.5 Naloxone HCl 0.2 mg 04/14/24 06:45 Naloxone 0.4 Mg/Ml 1 Ml Vial IV Q2M PRN Opioid Reversal Ondansetron HCl 4 mg 04/14/24 06:45 Ondansetron 4 Mg/2 Ml Vial IVP Q8HR PRN Nausea And Vomiting Intake and Output 04/13/24 04/14/24 04/14/24 22:59 06:59 14:59 Other: Weight 68.039 kg 04/14/24 05:30 04/14/24 05:30
[2024-04-14] MEDS ORDERED: IPRATROPIUM-ALBUTEROL 3 ML NEB INHALATION PRN (13:31)
[2024-04-14] MEDS: TAMSULOSIN 0.4 MG CAP.ER.24H PO SCH (13:35)
[2024-04-14] MEDS: ISOSORBIDE MONONITRATE ER 15 MG TAB PO SCH (13:35)
[2024-04-14] MEDS: TRIAMCINOLONE ACET 0.1% OINTMENT 80 GM TUBE TOPICAL SCH (13:36)
--- NOTE | 2024-04-14 13:38 | P.HPIM ---
History of Present Illness 38-year-old pleasant male with known history of coronary artery disease CABG PCI in the past was recently hospitalized for the same thing. Came in with chest pain pressure-like sensation 5/10 in severity radiating to the left arm. Pop flowers does have coronary artery disease patient had a positive stress test during last hospitalization was discharged yesterday was recommended to medically manage this coronary artery disease. Patient did take 3 nitroglycerin and chest pain is not resolved because of which patient came to the hospital patient was on Imdur, Ranexa, aspirin. 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 Cardiology evaluated the patient and believes patient pain is musculoskeletal in nature patient EKG showed sinus rhythm without any acute ST-T wave changes did show occasional PVCs chest x-ray atelectasis. Troponins are negative. Patient does have history of ischemic cardiomyopathy with EF of around 40 to 45%. REVIEW OF SYSTEMS: All other systems are negative except those mentioned in the HPI PHYSICAL EXAMINATION: GENERAL: The patient is alert and oriented x3, not in any acute distress. Well developed, well nourished. HEENT: Pupils are round and equally reacting to light. EOMI. No scleral icterus. No conjunctival pallor. Normocephalic, atraumatic. No pharyngeal erythema. No thyromegaly. CARDIOVASCULAR: S1 and S2 present. No murmurs, rubs, or gallops. PULMONARY: Chest is clear to auscultation, no wheezing or crackles. ABDOMEN: Soft, nontender, nondistended, normoactive bowel sounds. No palpable organomegaly. MUSCULOSKELETAL: No joint swelling or deformity. EXTREMITIES: No cyanosis, clubbing, or pedal edema. NEUROLOGICAL: Gross neurological examination did not reveal any focal deficits. SKIN: No rashes. Assessment and plan -Chest pain rule out acute coronary syndromes, cardiology evaluated patient recommended monitoring for recurrence of chest pain. Chest pain so far is believed to be musculoskeletal this time. -Degenerative shoulder disease patient was given Toradol I will start him on meloxicam. Patient will be discharged on meloxicam considering his heart disease Rudd 2 inhibitors probably need to be avoided. -Severe coronary disease medical management with above-mentioned medications -Ischemic cardiomyopathy not in heart failure exacerbation at this time -Hypertension -Hyperlipidemia -Type 2 diabetes mellitus -Dyspnea chronic from his coronary chronic heart failure not in acute exacerbat ion at this time For above-mentioned chronic medical problems patient will be resumed and continued on appropriate home medications Past Medical History Past Medical History: Coronary Artery Disease (CAD), Cancer, CVA/TIA, Diabetes Mellitus, GERD/Reflux, Hyperlipidemia, Hypertension, Memory Impairment, Myocardial Infarction ([place]) Additional Past Medical History / Comment(s): Hx skin cancer, head and thigh. Neuropathy feet/lower legs. Chronic dry skin and runny nose. 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 CABG 2003. 5 stents placed Apr 17 [facility]. Cataracts removed. COLONOSCOPY, NUMEROUS SKIN CANCER SPOTS REMOVED Past Anesthesia/Blood Transfusion Reactions: No Reported Reaction Date of Last Stent Placement:: 04/2019 Past Psychological History: Anxiety Smoking Status: Former smoker Past Alcohol Use History: Rare Past Drug Use History: None Reported - Past Family History Mother Family Medical History: Mitral Valve Prolapse (MVP) Additional Family Medical History / Comment(s): age 62. Father Family Medical History: Cancer Additional Family Medical History / Comment(s): age 72, prostate cancer. Medications and Allergies Home Medications Medication Instructions Recorded Confirmed Type Gabapentin [Neurontin] 100 mg PO HS 03/14/17 04/14/24 History Insulin Glargine,Hum.rec.anlog 8 unit SQ DAILY 03/14/17 04/14/24 History [Lantus Solostar Pen] Nitroglycerin Sl Tabs [Nitrostat] 0.4 mg SUBLINGUAL Q5M PRN 04/26/19 04/14/24 History Tamsulosin HCl [Flomax] 0.4 mg PO DAILY 04/26/19 04/14/24 History ARIPiprazole [Abilify] 5 mg PO DAILY 03/16/22 04/14/24 History Atorvastatin [Lipitor] 80 mg PO DAILY 03/16/22 04/14/24 History Memantine [Namenda] 10 mg PO BID@0900,1700 03/16/22 04/14/24 History Insulin Aspart [NovoLOG Flexpen] 12 units SQ AC-BRKFST 10/20/22 04/14/24 History metFORMIN HCL ER [Glucophage XR] 500 mg PO BID@0900,1700 10/20/22 04/14/24 History Galantamine HBr [Razadyne ER] 24 mg PO DAILY 04/11/24 04/14/24 History Insulin Aspart [NovoLOG Flexpen] 0 - 6 units SQ AC-SUPPER 04/11/24 04/14/24 History carvediloL [Coreg] 3.125 mg PO BID@0900,1700 04/11/24 04/14/24 History Acetaminophen Tab [Tylenol] 650 mg PO Q6HR PRN tab 04/13/24 04/14/24 Rx Aspirin 81 mg PO DAILY #30 tab 04/13/24 04/14/24 Rx Isosorbide Mononitrate ER [Imdur] 15 mg PO DAILY #30 tab 04/13/24 04/14/24 Rx Ranolazine [Ranexa] 500 mg PO Q12HR #60 tab 04/13/24 04/14/24 Rx Triamcinolone 0.1% Ointment 1 applic TOPICAL BID #80 gm 04/13/24 04/14/24 Rx [Kenalog 0.1% Ointment] Allergies Allergy/AdvReac Type Severity Reaction Status Date / Time codeine Allergy Unknown Verified 04/14/24 09:07 povidone-iodine Allergy Rash/Hives Verified 04/14/24 09:07 [From Betadine] soap [From Betadine] Allergy Rash/Hives Verified 04/14/24 09:07 Physical Exam Vitals: Vital Signs Temp Pulse Resp BP Pulse Ox 04/14/24 12:52 71 18 119/82 97 04/14/24 10:27 74 18 108/71 97 04/14/24 08:00 86 19 136/69 98 04/14/24 06:55 76 18 123/67 97 04/14/24 05:19 97.8 F 77 18 130/77 96 Intake and Output 04/13/24 04/14/24 04/14/24 22:59 06:59 14:59 Other: Weight 68.039 kg Results CBC & Chem 7: 04/14/24 05:30 04/14/24 05:30 Labs: Abnormal Lab Results - Last 24 Hours (Table) 04/14/24 04/14/24 Range/Units 05:30 05:30 RBC 3.96 L (4.30-5.90) m/uL Hgb 11.9 L (13.0-17.5) gm/dL Hct 36.8 L (39.0-53.0) % Sodium 136 L (137-145) mmol/L BUN 22 H (9-20) mg/dL Glucose 145 H (74-99) mg/dL
[2024-04-14 15:13] LABS: Glucose,Whole Blood 284 mg/dL (70-110)
[2024-04-14 17:18] LABS: Glucose,Whole Blood 167 mg/dL (70-110)
[2024-04-14] MEDS: INSULIN ASPART (NovoLOG) 100 UNIT/ML VIAL SQ SCH (17:41)
[2024-04-14] MEDS: MEMANTINE 10 MG TAB PO SCH (18:01)
[2024-04-14] MEDS: metFORMIN 500 MG TAB PO SCH (18:01)
[2024-04-14] MEDS: carvediloL 3.125 MG TAB PO SCH (18:01)
[2024-04-14] MEDS: GABAPENTIN 100 MG CAP PO SCH (20:01)
[2024-04-14 20:22] LABS: Glucose,Whole Blood 185 mg/dL (70-110)
[2024-04-14 21:27] VITALS: RESP 16
[2024-04-14] MEDS: BUDESONIDE 0.5 MG/2 ML NEBU INHALATION SCH (22:10)
[2024-04-15 05:27] LABS: Glucose,Whole Blood 129 mg/dL (70-110)
[2024-04-15 08:45] VITALS: BP 115/71; PULSE 63; TEMP 97.8
--- NOTE | 2024-04-15 08:51 | P.PN ---
Subjective Progress Note Date: 04/15/24 Consult reason: chest pain History of present illness: This is an 88-year-old male patient of Dr. Mensah with past medical history of coronary artery disease with previous CABG and most recent PCI of the distal left main in 03/18/2022, hypertension, dyslipidemia, diabetes mellitus type 2, mild to moderate stable dyspnea on exertion, ischemic cardiomyopathy. We have been asked to evaluate the patient for chest pain. Patient apparently presented to the emergency center on 04/05 for chest pain was discharged home on that time. Patient did receive 1 nitroglycerin and the pain was taken away. Patient then presented on 04/11 with chest pain that is rated as a 5 out of 10 according to the patient's . She gave him 3 nitroglycerin and the chest pain was unrelieved. EMS was called and brought the patient into the emergency center for further evaluation. Patient was admitted to the hospital underwent a Lexiscan stress test which came back abnormal with acute ischemia suspected. Case was discussed with Dr. Mensah with recommendations for medical management. Patient was started on Imdur, Ranexa and aspirin and discharged home. Patient developed chest pain across his chest which he states has been going on and off for a week. It can happen with or without activity. He does not think the new medications have made any difference. Patient's gave him a nitroglycerin and over 45 minutes is seem to gradually decreased and resolved. Patient had another episode of chest pain at 4:30 in the morning that went into his jaw without any other symptoms and she decided to bring the patient into the hospital. Blood pressure 108/71, heart rate 74. Due to underlying dementia, patient's communication is done primarily by the patient's . Reviewed results of previous testing done with the patient and his and plan is to watch for the next 24 hours. If patient has more episodes of chest pain. May discuss further ischemic workup. For now, 1 dose of IV Toradol ordered as there could be a component of musculoskeletal etiology. -EKG: Sinus rhythm with no acute ST-T wave changes, occasional PVC. -Chest x-ray: Minimal left lower lobe atelectasis or pneumonia. -Right shoulder x-ray reveals degenerative changes. -Laboratory studies: WBC 7.1, hemoglobin 9.9, potassium 4.8, creatinine 0.99. Troponin negative x 3. -Home cardiac medications: Aspirin 81 mg daily, atorvastatin 80 mg daily, Coreg 3.125 mg twice daily, Imdur 15 mg daily, Ranexa 500 mg twice daily, Nitrostat as needed. -Cardiac catheterization history: March 2022 with stenting to the left main. 95% distal left main stenosis noted, 99% proximal LAD, 95% ostial circumflex, patent TATE to LAD. -Patient underwent 3V CABG in 2001 (TATE-LAD, VG-RCA, VG-OM1) -Lexiscan Cardiolite stress test performed on 04/12/2024: Acute ischemia is suspected. -Echocardiogram performed 04/12/2024 revealed EF of 40 to 45%, globally reduced systolic function, mild mitral digitation, mild tricuspid regurgitation, RVSP 30 mmHg. 04/15/2024 Patient seen and examined. Patient denies chest pain at this time. He is not sure if the toradol helped. Patient has ambulated in the jeong and dis not experience chest pian. Patient has tenderness with palpation. Patient's states that they have a new Sleep member bed and the head is raised so that he can watch the football games and has been sleeping through the night with the head up. BP 115/76, HR 63, PO 97% on room air. Physical examination: Gen: This is an 88-year-old male in no acute distress VS: reviewed HEENT: Head is atraumatic, normocephalic. Pupils equal, round. Sclerae is anicteric. NECK: Supple. No JVD. LUNGS: Clear to auscultation. No wheezes or rhonchi. No intercostal retractions. HEART: Regular rate and rhythm. 2/6 systolic ejection murmur. ABDOMEN: Soft No tenderness. EXTREMITIES: No pedal edema. No calf tenderness. NEUROLOGICAL: Patient is awake. Assessment: Chest pain, acute coronary syndrome ruled out Recurrent chest pain with possible component of musculoskeletal etiology as well as known abnormal Lexiscan stress test performed on 04/12 Coronary artery disease with previous CABG and stents Ischemic cardiomyopathy Hyperlipidemia Hypertension Diabetes mellitus type 2 Chronic dyspnea on exertion stable Plan: Continue patient's home cardiac medications S/p 1 dose of Toradol 15 mg IV Reviewed Maureen scan imaging and regarding anterior ischemia this corresponds to the previously noted LAD stenosis. The inferior lateral ischemia may be new. No need to repeat echocardiogram as this was done this week No plan for cardiac cath at this time. Would recommend treatment for muscular skeletal pain which appears to be the main component of his chest pain. Patient is cleared for discharge home today and follow up with Dr. Mensah in one week. Nurse practitioner note has been reviewed, I agree with documented findings and plan of care. Patient was seen and examined. Objective - Vital Signs Vital signs: Vital Signs Temp 97.8 F 04/15/24 08:00 Pulse 63 04/15/24 08:00 Resp 16 04/15/24 08:00 BP 115/71 04/15/24 08:00 Pulse Ox 97 04/15/24 08:00 FiO2 Intake & Output 04/14/24 04/15/24 04/15/24 18:59 06:59 18:59 Weight 68.039 kg Other: # Voids 2 - Labs CBC & Chem 7: 04/14/24 05:30 04/14/24 05:30 Labs: Abnormal Lab Results - Last 24 Hours (Table) 04/14/24 04/14/24 04/14/24 Range/Units 15:12 17:17 20:17 POC Glucose (mg/dL) 284 H 167 H 185 H (70-110) mg/dL 04/15/24 Range/Units 05:26 POC Glucose (mg/dL) 129 H (70-110) mg/dL
[2024-04-15] MEDS: INSULIN ASPART (NovoLOG) 100 UNIT/ML VIAL SQ SCH (09:02)
[2024-04-15 09:27] LABS: Basophils # (A) 0.02 X 10*3/uL (0.00-0.10); Basophils % (A) 0.3 %; Eosinophils % (A) 4.5 %; HCT 33.5 % (39.6-50.0); HGB 10.4 g/dL (13.0-17.0); Lymphocytes # (A) 1.61 X 10*3/uL (0.90-5.00); MCV 93.3 FL (80.0-97.0); Mean Platelet Volume 9.4 FL (9.5-12.2); Monocytes # (A) 0.59 X 10*3/uL (0.20-1.00); Monocytes % (A) 8.8 %; NRBC Per 100 WBC 0 X 10*3/uL (0.00-0.01); Neutrophils # (A) 4.18 X 10*3/uL (1.80-7.70); Neutrophils % (A) 62.3 %; Platelet Count 177 X 10*3/uL (140-440); RBC 3.59 X 10*6/uL (4.40-5.60); RDW 14.4 % (11.5-14.5); WBC 6.71 X 10*3/uL (4.50-10.00)
[2024-04-15] MEDS: INSULIN DETEMIR (LEVEMIR) 100 UNIT/ML SYR SQ SCH (09:32)
[2024-04-15] MEDS: MELOXICAM 7.5 MG TAB PO SCH (09:32)
[2024-04-15] MEDS: DONEPEZIL 10 MG TAB PO SCH (09:33)
[2024-04-15] MEDS: ARIPiprazole 5 MG TAB PO SCH (09:33)
[2024-04-15 09:48] LABS: ALT 24 U/L (10-49); AST 25 U/L (14-35); Albumin 3.5 g/dL (3.8-4.9); Albumin/Globulin Ratio 1.59 Ratio (1.60-3.17); Alkaline Phosphatase 82 U/L (41-126); BUN/Creat Ratio 21.64 Ratio (12.00-20.00); Blood Urea Nitrogen 23.8 mg/dL (9.0-27.0); Calcium 8.7 mg/dL (8.7-10.3); Chloride 105 mmol/L (96-109); Globulin 2.2 g/dL (1.6-3.3); Glucose 123 mg/dL (70-110); Potassium 4.9 mmol/L (3.5-5.5); Sodium 137 mmol/L (135-145); Total Bilirubin 0.3 mg/dL (0.3-1.2); Total Protein 5.7 g/dL (6.2-8.2)
--- NOTE | 2024-04-15 10:30 | P.DS ---
Providers Date of admission: 04/14/24 06:45 Attending physician: Mike Lopes Consults: 04/14/24 06:45 Consult Physician Routine Consulting Provider: [facility] Consult Reason/Comments: chest pain Do you want consulting provider notified?: Yes Primary care physician: Blaine López [facility] Course: 38-year-old pleasant male with known history of coronary artery disease CABG PCI in the past was recently hospitalized for the same thing. Came in with chest pain pressure-like sensation 5/10 in severity radiating to the left arm. Patient does have coronary artery disease patient had a positive stress test during last hospitalization was discharged yesterday was recommended to medically manage this coronary artery disease. Patient did take 3 nitroglycerin and chest pain is not resolved because of which patient came to the hospital patient was on Imdur, Ranexa, aspirin. 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 Cardiology evaluated the patient and believes patient pain is musculoskeletal in nature patient EKG showed sinus rhythm without any acute ST-T wave changes did show occasional PVCs chest x-ray atelectasis. Troponins are negative. Patient does have history of ischemic cardiomyopathy with EF of around 40 to 45%. 04/15/2024 Patient does not have any more episodes of chest pain clinically doing well will be discharged today PHYSICAL EXAMINATION: GENERAL: The patient is alert and oriented x3, not in any acute distress. Well developed, well nourished. HEENT: Pupils are round and equally reacting to light. EOMI. No scleral icterus. No conjunctival pallor. Normocephalic, atraumatic. No pharyngeal erythema. No thyromegaly. CARDIOVASCULAR: S1 and S2 present. No murmurs, rubs, or gallops. PULMONARY: Chest is clear to auscultation, no wheezing or crackles. ABDOMEN: Soft, nontender, nondistended, normoactive bowel sounds. No palpable organomegaly. MUSCULOSKELETAL: No joint swelling or deformity. EXTREMITIES: No cyanosis, clubbing, or pedal edema. NEUROLOGICAL: Gross neurological examination did not reveal any focal deficits. SKIN: No rashes. Assessment and plan -Chest pain rule out acute coronary syndromes, cardiology evaluated patient recommended monitoring for recurrence of chest pain. Chest pain so far is believed to be musculoskeletal this time. -Degenerative shoulder disease patient was given Toradol I will start him on meloxicam. Patient will be discharged on meloxicam considering his heart disease Rudd 2 inhibitors probably need to be avoided. -Severe coronary disease medical management with above-mentioned medications -Ischemic cardiomyopathy not in heart failure exacerbation at this time -Hypertension -Hyperlipidemia -Type 2 diabetes mellitus -Dyspnea chronic from his coronary chronic heart failure not in acute exacerbation at this time Patient Condition at Discharge: Stable Plan - Discharge Summary Discharge Rx Participant: No New Discharge Prescriptions: New Meloxicam [Mobic] 7.5 mg PO DAILY PRN #30 tab PRN Reason: Pain Continue Insulin Glargine,Hum.rec.anlog [Lantus Solostar Pen] 8 unit SQ DAILY Gabapentin [Neurontin] 100 mg PO HS Nitroglycerin Sl Tabs [Nitrostat] 0.4 mg SUBLINGUAL Q5M PRN PRN Reason: Chest Pain Tamsulosin HCl [Flomax] 0.4 mg PO DAILY ARIPiprazole [Abilify] 5 mg PO DAILY Insulin Aspart [NovoLOG Flexpen] 12 units SQ AC-BRKFST metFORMIN HCL ER [Glucophage XR] 500 mg PO BID@0900,1700 Galantamine HBr [Razadyne ER] 24 mg PO DAILY Ranolazine [Ranexa] 500 mg PO Q12HR #60 tab Triamcinolone 0.1% Ointment [Kenalog 0.1% Ointment] 1 applic TOPICAL BID #80 gm Memantine [Namenda] 10 mg PO BID@0900,1700 Atorvastatin [Lipitor] 80 mg PO DAILY carvediloL [Coreg] 3.125 mg PO BID@0900,1700 Insulin Aspart [NovoLOG Flexpen] 0 - 6 units SQ AC-SUPPER Aspirin 81 mg PO DAILY #30 tab Isosorbide Mononitrate ER [Imdur] 15 mg PO DAILY #30 tab Acetaminophen Tab [Tylenol] 650 mg PO Q6HR PRN tab PRN Reason: Fever And/ Or Pain Discharge Medication List Gabapentin [Neurontin] 100 mg PO HS 03/14/17 [History] Insulin Glargine,Hum.rec.anlog [Lantus Solostar Pen] 8 unit SQ DAILY 03/14/17 [History] Nitroglycerin Sl Tabs [Nitrostat] 0.4 mg SUBLINGUAL Q5M PRN 04/26/19 [History] Tamsulosin HCl [Flomax] 0.4 mg PO DAILY 04/26/19 [History] ARIPiprazole [Abilify] 5 mg PO DAILY 03/16/22 [History] Atorvastatin [Lipitor] 80 mg PO DAILY 03/16/22 [History] Memantine [Namenda] 10 mg PO BID@0900,1700 03/16/22 [History] Insulin Aspart [NovoLOG Flexpen] 12 units SQ AC-BRKFST 10/20/22 [History] metFORMIN HCL ER [Glucophage XR] 500 mg PO BID@0900,1700 10/20/22 [History] Galantamine HBr [Razadyne ER] 24 mg PO DAILY 04/11/24 [History] Insulin Aspart [NovoLOG Flexpen] 0 - 6 units SQ AC-SUPPER 04/11/24 [History] carvediloL [Coreg] 3.125 mg PO BID@0900,1700 04/11/24 [History] Acetaminophen Tab [Tylenol] 650 mg PO Q6HR PRN tab 04/13/24 [Rx] Aspirin 81 mg PO DAILY #30 tab 04/13/24 [Rx] Isosorbide Mononitrate ER [Imdur] 15 mg PO DAILY #30 tab 04/13/24 [Rx] Ranolazine [Ranexa] 500 mg PO Q12HR #60 tab 04/13/24 [Rx] Triamcinolone 0.1% Ointment [Kenalog 0.1% Ointment] 1 applic TOPICAL BID #80 gm 04/13/24 [Rx] Meloxicam [Mobic] 7.5 mg PO DAILY PRN #30 tab 04/15/24 [Rx] Follow up Appointment(s)/Referral(s): Blaine Dawn MD [Primary Care Provider] - 3 Days Discharge Disposition: HOME SELF-CARE
== END 2024-04-15 12:03 | disposition home or self-care (01) ==
LOC: EC 05:15 → 6NMEDSUR 06:45
PROVIDERS: ADMIT Hospitalist; ATTEND Hospitalist
DX: R07.9 Chest pain, unspecified (principal); M19.011 Primary osteoarthritis, right shoulder; I25.10 Atherosclerotic heart disease of native coronary artery without angina pectoris; I25.5 Ischemic cardiomyopathy; I11.0 Hypertensive heart disease with heart failure; I50.9 Heart failure, unspecified; I25.2 Old myocardial infarction; E78.5 Hyperlipidemia, unspecified; F03.94 Unspecified dementia, unspecified severity, with anxiety; K21.9 Gastro-esophageal reflux disease without esophagitis; E11.42 Type 2 diabetes mellitus with diabetic polyneuropathy; Z79.4 Long term (current) use of insulin; Z79.82 Long term (current) use of aspirin; Z79.84 Long term (current) use of oral hypoglycemic drugs; Z79.899 Other long term (current) drug therapy; Z86.73 Personal history of transient ischemic attack (TIA), and cerebral infarction without residual deficits; Z87.891 Personal history of nicotine dependence; Z95.1 Presence of aortocoronary bypass graft; Z95.5 Presence of coronary angioplasty implant and graft; Z88.5 Allergy status to narcotic agent
CPT/HCPCS: 96361; 96374; 99285; 36415; 93005; 80053 ×2; 83735; 84484; 85025 ×2; 85610; 85730; 73020; 71046; G0378 ×2; J1885

== ENCOUNTER 2024-07-24 17:28 | Observation (INO) | payer MEDICARE ==
[2024-07-24 18:00] LABS: Basophils # (A) 0.04 10*3/uL (0.00-0.10); Basophils % (A) 0.6 %; Eosinophils # (A) 0.28 10*3/uL (0.04-0.35); Eosinophils % (A) 4.5 %; HCT 32.7 % (39.6-50.0); HGB 10.9 g/dL (13.0-17.0); Lymphocytes # (A) 1.54 10*3/uL (0.90-5.00); Lymphocytes % (A) 24.5 %; MCH 31.4 pg (27.0-32.0); MCHC 33.3 g/dL (32.0-37.0); MCV 94.2 fL (80.0-97.0); Mean Platelet Volume 8.5 fL (9.5-12.2); Monocytes # (A) 0.59 10*3/uL (0.20-1.00); Monocytes % (A) 9.4 %; Neutrophils # (A) 3.82 10*3/uL (1.80-7.70); Neutrophils % (A) 60.7 %; Platelet Count 156 10*3/uL (140-440); RBC 3.47 10*6/uL (4.40-5.60); RDW 13.5 % (11.5-14.5); WBC 6.29 10*3/uL (4.50-10.00)
--- NOTE | 2024-07-24 18:05 | ED ---
General Adult HPI - General Chief complaint: Chest Pain Stated complaint: chest pain Time Seen by Provider: 07/24/24 17:37 Source: patient, family, EMS, RN notes reviewed, old records reviewed Mode of arrival: EMS Limitations: altered mental status - History of Present Illness Initial comments: 88-year-old male history of coronary artery disease with remote history of bypass and multiple stents. Patient had an episode of exertional chest pain earlier in the day today this was relieved by rest and nitroglycerin. The patient had similar episode several months prior and was started on Ranexa and Imdur. He has been chest pain-free since the initiation of these medications. Patient does have dementia and history is limited predominantly to the . She states he developed substernal chest pain about 3 hours prior to arrival. This was after a brief walk. No diaphoresis or vomiting. Patient denying any pain complaints at the time my evaluation. - Related Data Home Medications Medication Instructions Recorded Confirmed Gabapentin [Neurontin] 100 mg PO HS 03/14/17 05/11/24 Insulin Glargine,Hum.rec.anlog 6 unit SQ HS 03/14/17 05/11/24 [Lantus Solostar Pen] Nitroglycerin Sl Tabs [Nitrostat] 0.4 mg SUBLINGUAL Q5M PRN 04/26/19 05/11/24 Tamsulosin HCl [Flomax] 0.4 mg PO DAILY 04/26/19 05/11/24 ARIPiprazole [Abilify] 5 mg PO DAILY 03/16/22 05/11/24 Atorvastatin [Lipitor] 80 mg PO DAILY 03/16/22 05/11/24 Memantine [Namenda] 10 mg PO BID@0900,1700 03/16/22 05/11/24 Insulin Aspart [NovoLOG Flexpen] 6 units SQ AC-BRKFST 10/20/22 05/11/24 metFORMIN HCL ER [Glucophage XR] 500 mg PO DAILY 10/20/22 05/11/24 Galantamine HBr [Razadyne ER] 24 mg PO DAILY 04/11/24 05/11/24 Insulin Aspart [NovoLOG Flexpen] See Protocol SQ AC-BID@1300,1700 04/11/24 05/11/24 carvediloL [Coreg] 3.125 mg PO BID@0900,1700 04/11/24 05/11/24 Isosorbide Mononitrate ER [Imdur] 15 mg PO DAILY 05/11/24 05/11/24 Ranolazine [Ranexa] 500 mg PO BID@1100,2300 05/11/24 05/11/24 Previous Rx's Medication Instructions Recorded Acetaminophen Tab [Tylenol] 650 mg PO Q6HR PRN tab 04/13/24 Aspirin 81 mg PO DAILY #30 tab 04/13/24 Triamcinolone 0.1% Ointment 1 applic TOPICAL BID #80 gm 04/13/24 [Kenalog 0.1% Ointment] Meloxicam [Mobic] 7.5 mg PO DAILY PRN #30 tab 04/15/24 Pantoprazole Sodium [Protonix] 40 mg PO DAILY #10 tab 05/12/24 Allergies Allergy/AdvReac Type Severity Reaction Status Date / Time codeine Allergy Unknown Verified 07/24/24 17:38 povidone-iodine Allergy Rash/Hives Verified 07/24/24 17:38 [From Betadine] soap [From Betadine] Allergy Rash/Hives Verified 07/24/24 17:38 Review of Systems ROS Statement: Those systems with pertinent positive or pertinent negative responses have been documented in the HPI. ROS Other: All systems not noted in ROS Statement are negative. Past Medical History Past Medical History: Coronary Artery Disease (CAD), Cancer, CVA/TIA, Diabetes Mellitus, GERD/Reflux, Hyperlipidemia, Hypertension, Memory Impairment, Myocardial Infarction (PR) Additional Past Medical History / Comment(s): Hx skin cancer, head and thigh. Neuropathy feet/lower legs. Chronic dry skin and runny nose. 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 CABG 2004. 5 stents placed Apr 17 [facility]. Cataracts removed. COLONOSCOPY, NUMEROUS SKIN CANCER SPOTS REMOVED Past Anesthesia/Blood Transfusion Reactions: No Reported Reaction Date of Last Stent Placement:: 04/2019 Past Psychological History: Anxiety Smoking Status: Former smoker Past Alcohol Use History: None Reported Past Drug Use History: None Reported - Past Family History Mother Family Medical History: Mitral Valve Prolapse (MVP) Additional Family Medical History / Comment(s): age 62. Father Family Medical History: Cancer Additional Family Medical History / Comment(s): age 72, prostate cancer. General Exam Limitations: altered mental status General appearance: alert, in no apparent distress Head exam: Present: atraumatic, normocephalic Eye exam: Present: normal appearance, PERRL ENT exam: Present: normal exam Neck exam: Present: normal inspection. Absent: tenderness, meningismus Respiratory exam: Present: normal lung sounds bilaterally. Absent: respiratory distress, wheezes Cardiovascular Exam: Present: regular rate, normal rhythm GI/Abdominal exam: Present: soft. Absent: distended, tenderness Extremities exam: Present: normal inspection, normal capillary refill Neurological exam: Present: alert, oriented X3, CN II-XII intact. Absent: motor sensory deficit Psychiatric exam: Present: normal affect, normal mood Skin exam: Present: warm, dry, intact Course Vital Signs 07/24/24 07/24/24 17:34 18:41 Temperature 97.7 F Pulse Rate 69 73 Respiratory 18 16 Rate Blood Pressure 138/79 130/71 O2 Sat by Pulse 100 96 Oximetry Medical Decision Making - Medical Decision Making Was pt. sent in by a medical professional or institution (, PA, GUN FERTILIZER, urgent care, hospital, or long term...) When possible be specific @ -No Did you speak to anyone other than the patient for history (EMS, parent, family, police, friend...)? What history was obtained from this source @The patient's was at bedside Did you review nursing and triage notes (agree or disagree)? Why? @ -I reviewed and agree with nursing and triage notes Were old charts reviewed (outside hosp., previous admission, EMS record, old EKG, old radiological studies, urgent care reports/EKG's, long term records)? Report findings @ -No old charts were reviewed Differential Chest Pain: Stable Angina, Unstable Angina, STEMI, NSTEMI Aortic Dissection, Pneumothorax, Musculoskeletal, Esophageal Spasm GERD, Cholecystitis, Pancreatitis, Zoster, this is not meant to be an all-inclusive list. EKG interpreted by me (3pts min.). @ -Sinus rhythm rate of 67, LA interval 148, QRS duration 105, QTc [address] segment elevation. X-rays interpreted by me (1pt min.). @ -Left lower lobe atelectasis, no acute findings on chest x-ray CT interpreted by me (1pt min.). @ -None done U/S interpreted by me (1pt. min.). @ -None done What testing was considered but not performed or refused? (CT, X-rays, U/S, labs)? Why? @ -None What meds were considered but not given or refused? Why? @ -None Did you discuss the management of the patient with other professionals (professionals i.e. , PA, GUN FERTILIZER, lab, RT, psych nurse, social media senior associate, diabetes nurse, teacher, fire control officer, case aide)? Give summary @ -Esther covering for [facility] and Dr. Olivas covering for cardiology Was smoking cessation discussed for >3mins.? @ -No Was critical care preformed (if so, how long)? @ -No Were there social determinants of health that impacted care today? How? (Homelessness, low income, unemployed, alcoholism, drug addiction, transportation, low edu. Level, literacy, decrease access to med. care, fdc, rehab)? @ -No Was there de-escalation of care discussed even if they declined (Discuss DNR or withdrawal of care, Hospice)? DNR status @ -No What co-morbidities impacted this encounter? (DM, HTN, Smoking, COPD, CAD, Cancer, CVA, ARF, Chemo, Hep., AIDS, mental health diagnosis, sleep apnea, morbid obesity)? @ -[CAD Was patient admitted / discharged? Hospital course, mention meds given and route, prescriptions, significant lab abnormalities, going to OR and other pertinent info. @ -88-year-old male presenting with an episode of exertional chest pain relieved by rest and nitroglycerin. No chest pain at the time my evaluation, EKG is negative for ST segment elevation. Chest x-ray clear, no acute findings. Patient has normal CBC, normal CMP, negative initial troponin. He will be observed for serial cardiac enzymes, telemetry, cardiology consultation. Undiagnosed new problem with uncertain prognosis? @ -[No Drug Therapy requiring intensive monitoring for toxicity (Heparin, Nitro, Insulin, Cardizem)? @ -No Were any procedures done? @ -No Diagnosis/symptom? @ -[Chest pain rule out Acute, or Chronic, or Acute on Chronic? @ -Acute Uncomplicated (without systemic symptoms) or Complicated (systemic symptoms)? @ -Complicated Side effects of treatment? @ -[No Exacerbation, Progression, or Severe Exacerbation? @ -No Poses a threat to life or bodily function? How? (Chest pain, USA, PR, pneumonia, PE, COPD, DKA, ARF, appy, cholecystitis, CVA, Diverticulitis, Homicidal, Suicidal, threat to staff... and all critical care pts) @ - yes, ACS, PR - Lab Data Result diagrams: 07/24/24 17:55 07/24/24 17:55 Lab Results 07/24/24 07/24/24 07/24/24 Range/Units 17:55 17:55 17:55 WBC 6.29 (4.50-10.00) 10*3/uL RBC 3.47 L (4.40-5.60) 10*6/uL Hgb 10.9 L (13.0-17.0) g/dL Hct 32.7 L (39.6-50.0) % MCV 94.2 (80.0-97.0) fL MCH 31.4 (27.0-32.0) pg MCHC 33.3 (32.0-37.0) g/dL Plt Count 156 (140-440) 10*3/uL MPV 8.5 L (9.5-12.2) fL Immature Gran % (Auto) 0.3 % Neutrophils % 60.7 % Lymphocytes % 24.5 % Monocytes % 9.4 % Eosinophils % 4.5 % Basophils % 0.6 % Immature Gran # 0.02 (0.00-0.04) 10*3/uL Neutrophils # 3.82 (1.80-7.70) 10*3/uL Lymphocytes # 1.54 (0.90-5.00) 10*3/uL Monocytes # 0.59 (0.20-1.00) 10*3/uL Eosinophils # 0.28 (0.04-0.35) 10*3/uL Basophils # 0.04 (0.00-0.10) 10*3/uL PT 11.2 (10.0-12.5) sec INR 1.0 (<1.2) APTT 20.8 L (22.0-30.0) sec Sodium 135 L (137-145) mmol/L Potassium 4.6 (3.5-5.1) mmol/L Chloride 102 (98-107) mmol/L Carbon Dioxide 23 (22-30) mmol/L Anion Gap 10 mmol/L BUN 27 H (9-20) mg/dL Creatinine 0.93 (0.66-1.25) mg/dL Est GFR (CKD-EPI)AfAm 86 (>60 ml/min/1.73 sqM) Est GFR (CKD-EPI)NonAf 74 (>60 ml/min/1.73 sqM) Glucose 125 H (74-99) mg/dL Calcium 9.2 (8.4-10.2) mg/dL Magnesium 1.4 L (1.6-2.3) mg/dL Total Bilirubin 0.3 (0.2-1.3) mg/dL AST 25 (17-59) U/L ALT 20 (4-49) U/L Alkaline Phosphatase 67 (38-126) U/L Troponin I (0.000-0.034) ng/mL NT-Pro-B Natriuret Pep 1140 pg/mL Total Protein 6.3 (6.3-8.2) g/dL Albumin 3.7 (3.5-5.0) g/dL 07/24/24 Range/Units 17:55 WBC (4.50-10.00) 10*3/uL RBC (4.40-5.60) 10*6/uL Hgb (13.0-17.0) g/dL Hct (39.6-50.0) % MCV (80.0-97.0) fL MCH (27.0-32.0) pg MCHC (32.0-37.0) g/dL Plt Count (140-440) 10*3/uL MPV (9.5-12.2) fL Immature Gran % (Auto) % Neutrophils % % Lymphocytes % % Monocytes % % Eosinophils % % Basophils % % Immature Gran # (0.00-0.04) 10*3/uL Neutrophils # (1.80-7.70) 10*3/uL Lymphocytes # (0.90-5.00) 10*3/uL Monocytes # (0.20-1.00) 10*3/uL Eosinophils # (0.04-0.35) 10*3/uL Basophils # (0.00-0.10) 10*3/uL PT (10.0-12.5) sec INR (<1.2) APTT (22.0-30.0) sec Sodium (137-145) mmol/L Potassium (3.5-5.1) mmol/L Chloride (98-107) mmol/L Carbon Dioxide (22-30) mmol/L Anion Gap mmol/L BUN (9-20) mg/dL Creatinine (0.66-1.25) mg/dL Est GFR (CKD-EPI)AfAm (>60 ml/min/1.73 sqM) Est GFR (CKD-EPI)NonAf (>60 ml/min/1.73 sqM) Glucose (74-99) mg/dL Calcium (8.4-10.2) mg/dL Magnesium (1.6-2.3) mg/dL Total Bilirubin (0.2-1.3) mg/dL AST (17-59) U/L ALT (4-49) U/L Alkaline Phosphatase (38-126) U/L Troponin I <0.012 (0.000-0.034) ng/mL NT-Pro-B Natriuret Pep pg/mL Total Protein (6.3-8.2) g/dL Albumin (3.5-5.0) g/dL Disposition Clinical Impression: Chest pain Disposition: ADMITTED IP TO THIS HOSP Condition: Stable Is patient prescribed a controlled substance at d/c from ED?: No Referrals: Blaine Dawn MD [Primary Care Provider] - 1-2 days Time of Disposition: 19:07
[2024-07-24 18:13] LABS: ALT 20 U/L (4-49); AST 25 U/L (17-59); African American GFR (CKD) 86 (>60 ml/min/1.73 sqM); Albumin 3.7 g/dL (3.5-5.0); Alkaline Phosphatase 67 U/L (38-126); Anion Gap 10 mmol/L; Blood Urea Nitrogen 27 mg/dL (9-20); Calcium 9.2 mg/dL (8.4-10.2); Carbon Dioxide 23 mmol/L (22-30); Chloride 102 mmol/L (98-107); Glucose 125 mg/dL (74-99); Magnesium 1.4 mg/dL (1.6-2.3); Non-African American GFR(CKD) 74 (>60 ml/min/1.73 sqM); Potassium 4.6 mmol/L (3.5-5.1); Sodium 135 mmol/L (137-145); Total Bilirubin 0.3 mg/dL (0.2-1.3); Total Protein 6.3 g/dL (6.3-8.2)
--- NOTE | 2024-07-24 18:17 | XR ---
EXAMINATION TYPE: XR chest 2V DATE OF EXAM: 07/24/2024 6:09 PM COMPARISON: 05/11/2024 CLINICAL INDICATION: Male, 88 years old with history of Chest Pain, TECHNIQUE: XR chest 2V view(s) obtained. FINDINGS: The heart size is normal. The pulmonary vasculature is normal. There may be some mild left lower lobe infiltrate. Correlate for atelectasis. Developing pneumonia co uld be considered.. Sternotomy wires are present from prior CABG. IMPRESSION: 1. Mild left lower lobe atelectasis or developing pneumonia. [facility], , 07/24/2024 6:14 PM
[2024-07-24 18:19] LABS: Prothrombin Time 11.2 sec (10.0-12.5)
[2024-07-24 18:22] LABS: NT-Pro-B-Type Natriuretic Pept 1140 pg/mL
[2024-07-24 18:24] LABS: Partial Thromboplastin Time 20.8 sec (22.0-30.0)
[2024-07-24] MEDS: MAGNESIUM SULFATE-D5W PMX 1 GM in DEXTROSE/WATER 1 100ML.BAG IVPB SCH (18:53)
[2024-07-24] MEDS ORDERED: ACETAMINOPHEN TAB 325 MG TAB PO PRN (19:01)
[2024-07-24] MEDS ORDERED: NALOXONE 0.4 MG/ML 1 ML VIAL IV PRN (19:01)
[2024-07-24 23:54] LABS: Glucose,Whole Blood 288 mg/dL (70-110)
[2024-07-25 06:14] LABS: Glucose,Whole Blood 115 mg/dL (70-110)
[2024-07-25] MEDS ORDERED: DEXTROSE 50% SYRINGE 50 ML IVP PRN ×2 (06:26)
[2024-07-25] MEDS: INSULIN LISPRO (HumaLOG) 100 UNIT/ML 10 mL VL SQ SCH (06:34)
[2024-07-25 07:34] VITALS: BP 127/79; PULSE 71; RESP 16; TEMP 97.4
[2024-07-25] MEDS ORDERED: ISOSORBIDE MONONITRATE ER 15 MG TAB PO SCH (09:00)
[2024-07-25] MEDS: ATORVASTATIN 80 MG TAB PO SCH (09:07)
[2024-07-25] MEDS: ISOSORBIDE MONONITRATE ER 30 MG TAB.ER.24H PO SCH (09:07)
[2024-07-25] MEDS: ASPIRIN 81 MG PO SCH (09:07)
[2024-07-25] MEDS: carvediloL 3.125 MG TAB PO SCH (09:07)
--- NOTE | 2024-07-25 10:28 | P.CRDCN ---
History of Present Illness History of present illness: HISTORY OF PRESENT ILLNESS: This is a 88-year-old male with a past medical history significant for coronary artery disease with previous CABG and stenting, hypertension, hyperlipidemia, a nd memory impairment. Patient follows in the office with Dr. Mensah. We have been asked to see the patient in consultation for chest pain. Patient examined at the bedside. Patient spouse is at the bedside and providing additional history. Patient reports he started having some chest discomfort yesterday. He was apparently going to go for a walk but then changed his mind and said he was unable to go because of his discomfort. He denied any radiation of the pain. Denied any nausea or vomiting. He reported feeling dizzy in the morning around 630 but denies any further dizziness. His spouse did give him 3 nitro which did not help with the pain. She called the office and was directed to come to the emergency room. The patient states the pain was gone by the time EMS this arrived. He denied any further episodes of chest pain or pressure. DIAGNOSTICS: - EKG reveals sinus mechanism with no signs of acute ischemia. - Chest xray mild left lower lobe atelectasis or developing pneumonia. - Laboratory data: WBC 6.29. Hemoglobin 10.9. Platelet count 156. Sodium 135. Potassium 4.6. BUN 27. Creatinine 0.93. Troponin negative x 3. proBNP 1140. - Current home cardiac medications include carvedilol 3.125 mg twice a day, Imdur 15 mg daily, Ranexa 500 mg twice a day, Lipitor 80 mg daily, aspirin 81 mg daily - Most recent echocardiogram obtained in April 2024 revealed ejection fraction 42%, mild MR, mild TR -Patient underwent three-vessel CABG in June 2001 with TATE to LAD, VGRCA, VGOM1 - Cardiac catheterization history: March 2022 revealing 95% distal left main, 99% proximal LAD, 95% ostial circumflex, patent TATE to LAD, right dominant system. Patient underwent stenting to the distal left main REVIEW OF SYSTEMS: At the time of my exam: CONSTITUTIONAL: Denies fever or chills. HEENT: Denies blurred vision, vision changes, or eye pain. Denies hemoptysis CARDIOVASCULAR: Denies chest pain. Denies orthopnea. Denies PND. Denies palpitations RESPIRATORY: Denies shortness of breath. GASTROINTESTINAL: Denies abdominal pain. Denies nausea or vomiting. HEMATOLOGIC: Denies bleeding disorders. GENITOURINARY: Denies any blood in urine. SKIN: Denies pruitis. Denies rash. PHYSICAL EXAM: VITAL SIGNS: Reviewed. GENERAL: Well-developed in no acute distress. HEENT: Head is normocephalic. Pupils are equal, round. Sclerae anicteric. Mucous membranes of the mouth are moist. Neck supple. No JVD or thyromegaly LUNGS: Respirations even and unlabored. Lungs essentially clear to auscultation bilaterally. HEART: Regular rate and rhythm. S1 and S2 heard. ABDOMEN: Soft. Nondistended. Nontender. EXTREMITIES: Normal range of motion. No clubbing or cyanosis. Peripheral pulses intact. No lower extremity edema NEUROLOGIC: Awake and alert. Oriented x 3. ASSESSMENT: Chest pain, troponin negative x 3 Coronary artery disease with previous CABG and stenting Hypertension Hyperlipidemia Memory impairment PLAN: An acute coronary event has been ruled out No need to repeat echocardiogram as this was performed in April 2024 Resume home cardiac medications Increase Imdur to 30 mg daily We will continue with medical management at this time. No plans for cardiac c atheterization or stress testing Patient may be discharged home this afternoon from a cardiac standpoint follow- up in the office with Dr. Mensah Nurse practitioner note has been reviewed by physician. Signing provider agrees with the documented findings, assessment, and plan of care documented by [employer] as a scribe. Past Medical History Past Medical History: Coronary Artery Disease (CAD), Cancer, CVA/TIA, Diabetes Mellitus, GERD/Reflux, Hyperlipidemia, Hypertension, Memory Impairment, Myocardial Infarction ([place]) Additional Past Medical History / Comment(s): Hx skin cancer, head and thigh. Neuropathy feet/lower legs. Chronic dry skin and runny nose. 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 CABG 2004. 5 stents placed Apr 17 [facility]. Cataracts removed. COLONOSCOPY, NUMEROUS SKIN CANCER SPOTS REMOVED Past Anesthesia/Blood Transfusion Reactions: No Reported Reaction Date of Last Stent Placement:: 04/2019 Past Psychological History: Anxiety Additional Psychological History / Comment(s): memory impairment, vivid dreams Smoking Status: Former smoker Past Alcohol Use History: None Reported Additional Past Alcohol Use History / Comment(s): QUIT SMOKING PIPE AND CIGAR BACK IN COLLEGE, NONE IN LAST 40 YEARS. Past Drug Use History: None Reported - Past Family History Mother Family Medical History: Mitral Valve Prolapse (MVP) Additional Family Medical History / Comment(s): age 62. Father Family Medical History: Cancer Additional Family Medical History / Comment(s): age 72, prostate cancer. Medications and Allergies Home Medications Medication Instructions Recorded Confirmed Type Gabapentin [Neurontin] 100 mg PO HS 03/14/17 07/24/24 History Insulin Glargine,Hum.rec.anlog 8 unit SQ DAILY 03/14/17 07/24/24 History [Lantus Solostar Pen] Nitroglycerin Sl Tabs [Nitrostat] 0.4 mg SUBLINGUAL Q5M PRN 04/26/19 07/24/24 History Tamsulosin HCl [Flomax] 0.4 mg PO DAILY 04/26/19 07/24/24 History ARIPiprazole [Abilify] 5 mg PO DAILY 03/16/22 07/24/24 History Atorvastatin [Lipitor] 80 mg PO DAILY 03/16/22 07/24/24 History Memantine [Namenda] 10 mg PO BID 03/16/22 07/24/24 History Insulin Aspart [NovoLOG Flexpen] 12 - 16 units SQ W/BRKFST 10/20/22 07/24/24 History metFORMIN HCL ER [Glucophage XR] 500 mg PO DAILY 10/20/22 07/24/24 History Galantamine HBr [Razadyne ER] 24 mg PO DAILY 04/11/24 07/24/24 History Insulin Aspart [NovoLOG Flexpen] 0 - 6 units SQ W/SUPPER 04/11/24 07/24/24 History carvediloL [Coreg] 3.125 mg PO BID-W/MEALS 04/11/24 07/24/24 History Aspirin 81 mg PO DAILY #30 tab 04/13/24 07/24/24 Rx Isosorbide Mononitrate ER [Imdur] 15 mg PO DAILY 05/11/24 07/24/24 History Ranolazine [Ranexa] 500 mg PO BID@1100,2300 05/11/24 07/24/24 History ALPRAZolam [Xanax] 0.25 mg PO TID PRN 07/24/24 07/24/24 History Cyanocobalamin (Vitamin B-12) 1,000 mcg PO DAILY 07/24/24 07/24/24 History [Vitamin B-12] L.acidoph,Paracasei, B.lactis 1 cap PO DAILY 07/24/24 07/24/24 History [Probiotic] Niacinamide 500 mg PO DAILY 07/24/24 07/24/24 History Omeprazole 20 mg PO DAILY 07/24/24 07/24/24 History Vit C/E/Zn/Coppr/Lutein/Zeaxan 1 cap PO BID 07/24/24 07/24/24 History [Preservision Areds 2 Softgel] Allergies Allergy/AdvReac Type Severity Reaction Status Date / Time codeine Allergy Unknown Verified 07/24/24 20:37 povidone-iodine Allergy Rash/Hives Verified 07/24/24 20:37 [From Betadine] soap [From Betadine] Allergy Rash/Hives Verified 07/24/24 20:37 Physical Exam Vitals: Vital Signs Temp Pulse Pulse Resp BP BP Pulse Ox 07/25/24 07:00 97.4 F L 71 16 127/79 98 07/25/24 00:39 98.5 F 72 18 104/57 95 07/24/24 23:41 97.5 F L 84 16 132/74 99 07/24/24 21:50 97.7 F 87 13 126/69 98 07/24/24 19:05 80 15 130/73 97 07/24/24 18:41 73 16 130/71 96 07/24/24 17:34 97.7 F 69 18 138/79 100 Intake and Output 07/24/24 07/25/24 07/25/24 22:59 06:59 14:59 Other: Voiding Method Toilet Toilet # Voids 4 Weight 63.503 kg Results 07/24/24 17:55 07/24/24 17:55 Cardiac Enzymes 07/24/24 07/24/2407/24/25 Range/Units 17:55 17:55 20:26 AST 25 (17-59) U/L Troponin I <0.012 <0.012 (0.000-0.034) ng/mL 07/24/24 Range/Units 23:22 AST (17-59) U/L Troponin I <0.012 (0.000-0.034) ng/mL Coagulation 07/24/24 Range/Units 17:55 PT 11.2 (10.0-12.5) sec APTT 20.8 L (22.0-30.0) sec CBC 07/24/24 Range/Units 17:55 WBC 6.29 (4.50-10.00) 10*3/uL RBC 3.47 L (4.40-5.60) 10*6/uL Hgb 10.9 L (13.0-17.0) g/dL Hct 32.7 L (39.6-50.0) % Plt Count 156 (140-440) 10*3/uL Comprehensive Metabolic Panel 07/24/24 Range/Units 17:55 Sodium 135 L (137-145) mmol/L Potassium 4.6 (3.5-5.1) mmol/L Chloride 102 (98-107) mmol/L Carbon Dioxide 23 (22-30) mmol/L BUN 27 H (9-20) mg/dL Creatinine 0.93 (0.66-1.25) mg/dL Glucose 125 H (74-99) mg/dL Calcium 9.2 (8.4-10.2) mg/dL AST 25 (17-59) U/L ALT 20 (4-49) U/L Alkaline Phosphatase 67 (38-126) U/L Total Protein 6.3 (6.3-8.2) g/dL Albumin 3.7 (3.5-5.0) g/dL Current Medications Generic Name Dose Route Start Last Admin Trade Name Freq PRN Reason Stop Dose Admin Acetaminophen 650 mg 07/24/24 19:01 Acetaminophen Tab 325 Mg Tab PO Q6HR PRN Mild Pain or Fever > 100.5 Dextrose/Water 25 ml 07/25/24 06:26 Dextrose 50% Syringe 50 Ml IVP PER PROTOCOL PRN Hypoglycemia Protocol Dextrose/Water 50 ml 07/25/24 06:26 Dextrose 50% Syringe 50 Ml IVP PER PROTOCOL PRN Hypoglycemia Protocol Insulin Human Lispro 0 unit 07/25/24 07:30 07/25/24 06:34 Insulin Lispro (Humalog) 100 Unit/Ml 10 Ml Vl SQ Not Given ACHS RADHA Protocol Naloxone HCl 0.2 mg 07/24/24 19:01 Naloxone 0.4 Mg/Ml 1 Ml Vial IV Q2M PRN Opioid Reversal Intake and Output 07/24/24 07/25/24 07/25/24 22:59 06:59 14:59 Other: Voiding Method Toilet Toilet # Voids 4 Weight 63.503 kg 07/24/24 17:55 07/24/24 17:55
[2024-07-25 11:58] LABS: Glucose,Whole Blood 210 mg/dL (70-110)
[2024-07-25] MEDS ORDERED: MAGNESIUM SULFATE-D5W PMX 1 GM in DEXTROSE/WATER 1 100ML.BAG IVPB SCH (12:00)
--- NOTE | 2024-07-25 12:06 | P.HPIM ---
History of Present Illness Patient is a pleasant male with a history of coronary disease and multiple stents in the past came in for exertional dyspnea on the right side of the chest pressure-like sensation without any diaphoresis nausea or radiation of the pain patient pain is nonpleuritic in nature patient denied any lightheadedness at the time of event but was dizzy earlier in the day and patient blood pressure on admission was also slightly on the lower side which is 104/57 and 1. Patient is on multiple medications for coronary artery disease. EKG did not show any acute ST-T wave changes chest x-ray showed mild atelectasis although patient does not have any fever chills or elevated white count proBNP is 1140 patient had a decreased ejection fraction in the echocardiogram that was done in April 2024 with EF of around 42% patient has occasional shortness of breath but denied any orthopnea paroxysmal nocturnal dyspnea. Patient clinically does not appear to be in CHF exacerbation. REVIEW OF SYSTEMS: All other systems are negative except those mentioned in the HPI PHYSICAL EXAMINATION: GENERAL: The patient is alert and oriented x3, not in any acute distress. Well developed, well nourished. Chronic tremor patient denied any history of Parkinson's HEENT: Pupils are round and equally reacting to light. EOMI. No scleral icterus. No conjunctival pallor. Normocephalic, atraumatic. No pharyngeal erythema. No thyromegaly. CARDIOVASCULAR: S1 and S2 present. No murmurs, rubs, or gallops. PULMONARY: Chest is clear to auscultation, no wheezing or crackles. ABDOMEN: Soft, nontender, nondistended, normoactive bowel sounds. No palpable organomegaly. MUSCULOSKELETAL: No joint swelling or deformity. EXTREMITIES: No cyanosis, clubbing, or pedal edema. NEUROLOGICAL: Gross neurological examination did not reveal any focal deficits. SKIN: No rashes. Assessment and plan -Chest pain rule out acute coronary syndromes can be angina Imdur dose is being increased was evaluated cardiology patient is cleared for discharge patient is already on Ranexa beta-more statin - Coronary artery disease with multiple stents and CABG in the past - Hypertension patient blood pressure is not elevated - Hyperlipidemia - Lightheadedness can be secondary to coronary artery disease and can be secondary to medications although cardiology is not recommending any medication changes as mentioned above dose of Imdur is being increased to 30 mg and patient will be discharged on increased Imdur - Dementia - Tremor unknown whether patient has Parkinson's may benefit from evaluation by neurology - Hypomagnesemia magnesium was replaced Patient was eval by cardiology patient is clinically doing well patient will be discharged later today Past Medical History Past Medical History: Coronary Artery Disease (CAD), Cancer, CVA/TIA, Diabetes Mellitus, GERD/Reflux, Hyperlipidemia, Hypertension, Memory Impairment, Myocardial Infarction ([place]) Additional Past Medical History / Comment(s): Hx skin cancer, head and thigh. Neuropathy feet/lower legs. Chronic dry skin and runny nose. 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 CABG 2003. 5 stents placed Apr 17 [facility]. Cataracts removed. COLONOSCOPY, NUMEROUS SKIN CANCER SPOTS REMOVED Past Anesthesia/Blood Transfusion Reactions: No Reported Reaction Date of Last Stent Placement:: 04/2019 Past Psychological History: Anxiety Additional Psychological History / Comment(s): memory impairment, vivid dreams Smoking Status: Former smoker Past Alcohol Use History: None Reported Additional Past Alcohol Use History / Comment(s): QUIT SMOKING PIPE AND CIGAR BACK IN COLLEGE, NONE IN LAST 40 YEARS. Past Drug Use History: None Reported - Past Family History Mother Family Medical History: Mitral Valve Prolapse (MVP) Additional Family Medical History / Comment(s): age 62. Father Family Medical History: Cancer Additional Family Medical History / Comment(s): age 72, prostate cancer. Medications and Allergies Home Medications Medication Instructions Recorded Confirmed Type Gabapentin [Neurontin] 100 mg PO HS 03/14/17 07/24/24 History Insulin Glargine,Hum.rec.anlog 8 unit SQ DAILY 03/14/17 07/24/24 History [Lantus Solostar Pen] Nitroglycerin Sl Tabs [Nitrostat] 0.4 mg SUBLINGUAL Q5M PRN 04/26/19 07/24/24 History Tamsulosin HCl [Flomax] 0.4 mg PO DAILY 04/26/19 07/24/24 History ARIPiprazole [Abilify] 5 mg PO DAILY 03/16/22 07/24/24 History Atorvastatin [Lipitor] 80 mg PO DAILY 03/16/22 07/24/24 History Memantine [Namenda] 10 mg PO BID 03/16/22 07/24/24 History Insulin Aspart [NovoLOG Flexpen] 12 - 16 units SQ W/BRKFST 10/20/22 07/24/24 History metFORMIN HCL ER [Glucophage XR] 500 mg PO DAILY 10/20/22 07/24/24 History Galantamine HBr [Razadyne ER] 24 mg PO DAILY 04/11/24 07/24/24 History Insulin Aspart [NovoLOG Flexpen] 0 - 6 units SQ W/SUPPER 04/11/24 07/24/24 History carvediloL [Coreg] 3.125 mg PO BID-W/MEALS 04/11/24 07/24/24 History Aspirin 81 mg PO DAILY #30 tab 04/13/24 07/24/24 Rx Ranolazine [Ranexa] 500 mg PO BID@1100,2300 05/11/24 07/24/24 History ALPRAZolam [Xanax] 0.25 mg PO TID PRN 07/24/24 07/24/24 History Cyanocobalamin (Vitamin B-12) 1,000 mcg PO DAILY 07/24/24 07/24/24 History [Vitamin B-12] L.acidoph,Paracasei, B.lactis 1 cap PO DAILY 07/24/24 07/24/24 History [Probiotic] Niacinamide 500 mg PO DAILY 07/24/24 07/24/24 History Omeprazole 20 mg PO DAILY 07/24/24 07/24/24 History Vit C/E/Zn/Coppr/Lutein/Zeaxan 1 cap PO BID 07/24/24 07/24/24 History [Preservision Areds 2 Softgel] Isosorbide Mononitrate ER [Imdur] 30 mg PO DAILY tab 07/25/24 Rx Allergies Allergy/AdvReac Type Severity Reaction Status Date / Time codeine Allergy Unknown Verified 07/24/24 20:37 povidone-iodine Allergy Rash/Hives Verified 07/24/24 20:37 [From Betadine] soap [From Betadine] Allergy Rash/Hives Verified 07/24/24 20:37 Physical Exam Vitals: Vital Signs Temp Pulse Pulse Resp BP BP Pulse Ox 07/25/24 07:00 97.4 F L 71 16 127/79 98 07/25/24 00:39 98.5 F 72 18 104/57 95 07/24/24 23:41 97.5 F L 84 16 132/74 99 07/24/24 21:50 97.7 F 87 13 126/69 98 07/24/24 19:05 80 15 130/73 97 07/24/24 18:41 73 16 130/71 96 07/24/24 17:34 97.7 F 69 18 138/79 100 Intake and Output 07/24/24 07/25/24 07/25/24 22:59 06:59 14:59 Other: Voiding Method Toilet Toilet Toilet # Voids 4 Weight 63.503 kg Results CBC & Chem 7: 07/24/24 17:55 07/24/24 17:55 Labs: Abnormal Lab Results - Last 24 Hours (Table) 07/24/24 07/24/24 07/24/24 Range/Units 17:55 17:55 17:55 RBC 3.47 L (4.40-5.60) 10*6/uL Hgb 10.9 L (13.0-17.0) g/dL Hct 32.7 L (39.6-50.0) % MPV 8.5 L (9.5-12.2) fL APTT 20.8 L (22.0-30.0) sec Sodium 135 L (137-145) mmol/L BUN 27 H (9-20) mg/dL Glucose 125 H (74-99) mg/dL POC Glucose (mg/dL) (70-110) mg/dL Magnesium 1.4 L (1.6-2.3) mg/dL 07/24/24 07/25/24 07/25/24 Range/Units 23:53 06:13 11:57 RBC (4.40-5.60) 10*6/uL Hgb (13.0-17.0) g/dL Hct (39.6-50.0) % MPV (9.5-12.2) fL APTT (22.0-30.0) sec Sodium (137-145) mmol/L BUN (9-20) mg/dL Glucose (74-99) mg/dL POC Glucose (mg/dL) 288 H 115 H 210 H (70-110) mg/dL Magnesium (1.6-2.3) mg/dL Thrombosis Risk Factor Assmnt - Choose All That Apply Each Risk Factor Represents 3 Points: Age 75 years or older Thrombosis Risk Factor Assessment Total Risk Factor Score: 3 Thrombosis Risk Factor Assessment Level: Moderate Risk
--- NOTE | 2024-07-25 12:06 | P.DS ---
Providers Date of admission: 07/24/24 19:01 Attending physician: Matti Christianson Consults: 07/24/24 19:01 Consult Physician Routine Consulting Provider: Yelitza Mensah Consult Reason/Comments: CP Do you want consulting provider notified?: Yes Primary care physician: [facility] Course: Patient is a pleasant male with a history of coronary disease and multiple stents in the past came in for exertional dyspnea on the right side of the chest pressure-like sensation without any diaphoresis nausea or radiation of the pain patient pain is nonpleuritic in nature patient denied any lightheadedness at the time of event but was dizzy earlier in the day and patient blood pressure on admission was also slightly on the lower side which is 104/57 and 1. Patient is on multiple medications for coronary artery disease. EKG did not show any acute ST-T wave changes chest x-ray showed mild atelectasis although patient does not have any fever chills or elevated white count proBNP is 1140 patient had a decreased ejection fraction in the echocardiogram that was done in April 2024 with EF of around 42% patient has occasional shortness of breath but denied any orthopnea paroxysmal nocturnal dyspnea. Patient clinically does not appear to be in CHF exacerbation. REVIEW OF SYSTEMS: All other systems are negative except those mentioned in the HPI PHYSICAL EXAMINATION: GENERAL: The patient is alert and oriented x3, not in any acute distress. Well developed, well nourished. Chronic tremor patient denied any history of Parkinson's HEENT: Pupils are round and equally reacting to light. EOMI. No scleral icterus. No conjunctival pallor. Normocephalic, atraumatic. No pharyngeal erythema. No thyromegaly. CARDIOVASCULAR: S1 and S2 present. No murmurs, rubs, or gallops. PULMONARY: Chest is clear to auscultation, no wheezing or crackles. ABDOMEN: Soft, nontender, nondistended, normoactive bowel sounds. No palpable organomegaly. MUSCULOSKELETAL: No joint swelling or deformity. EXTREMITIES: No cyanosis, clubbing, or pedal edema. NEUROLOGICAL: Gross neurological examination did not reveal any focal deficits. SKIN: No rashes. Assessment and plan -Chest pain rule out acute coronary syndromes can be angina Imdur dose is being increased was evaluated cardiology patient is cleared for discharge patient is already on Ranexa beta-more statin - Coronary artery disease with multiple stents and CABG in the past - Hypertension patient blood pressure is not elevated - Hyperlipidemia - Lightheadedness can be secondary to coronary artery disease and can be secondary to medications although cardiology is not recommending any medication changes as mentioned above dose of Imdur is being increased to 30 mg and patient will be discharged on increased Imdur - Dementia - Tremor unknown whether patient has Parkinson's may benefit from evaluation by neurology - Hypomagnesemia magnesium was replaced Patient was eval by cardiology patient is clinically doing well patient will be discharged later today Patient Condition at Discharge: Stable Plan - Discharge Summary New Discharge Prescriptions: New Isosorbide Mononitrate ER [Imdur] 30 mg PO DAILY tab Continue Insulin Glargine,Hum.rec.anlog [Lantus Solostar Pen] 8 unit SQ DAILY Gabapentin [Neurontin] 100 mg PO HS Nitroglycerin Sl Tabs [Nitrostat] 0.4 mg SUBLINGUAL Q5M PRN PRN Reason: Chest Pain Tamsulosin HCl [Flomax] 0.4 mg PO DAILY ARIPiprazole [Abilify] 5 mg PO DAILY Insulin Aspart [NovoLOG Flexpen] 12 - 16 units SQ W/BRKFST metFORMIN HCL ER [Glucophage XR] 500 mg PO DAILY Galantamine HBr [Razadyne ER] 24 mg PO DAILY Cyanocobalamin (Vitamin B-12) [Vitamin B-12] 1,000 mcg PO DAILY L.acidoph,Paracasei, B.lactis [Probiotic] 1 cap PO DAILY Niacinamide 500 mg PO DAILY Omeprazole 20 mg PO DAILY Memantine [Namenda] 10 mg PO BID Atorvastatin [Lipitor] 80 mg PO DAILY carvediloL [Coreg] 3.125 mg PO BID-W/MEALS Insulin Aspart [NovoLOG Flexpen] 0 - 6 units SQ W/SUPPER Aspirin 81 mg PO DAILY #30 tab Ranolazine [Ranexa] 500 mg PO BID@1100,2300 ALPRAZolam [Xanax] 0.25 mg PO TID PRN PRN Reason: Anxiety Vit C/E/Zn/Coppr/Lutein/Zeaxan [Preservision Areds 2 Softgel] 1 cap PO BID Discontinued Isosorbide Mononitrate ER [Imdur] 15 mg PO DAILY Discharge Medication List Gabapentin [Neurontin] 100 mg PO HS 03/14/17 [History] Insulin Glargine,Hum.rec.anlog [Lantus Solostar Pen] 8 unit SQ DAILY 03/14/17 [History] Nitroglycerin Sl Tabs [Nitrostat] 0.4 mg SUBLINGUAL Q5M PRN 04/26/19 [History] Tamsulosin HCl [Flomax] 0.4 mg PO DAILY 04/26/19 [History] ARIPiprazole [Abilify] 5 mg PO DAILY 03/16/22 [History] Atorvastatin [Lipitor] 80 mg PO DAILY 03/16/22 [History] Memantine [Namenda] 10 mg PO BID 03/16/22 [History] Insulin Aspart [NovoLOG Flexpen] 12 - 16 units SQ W/BRKFST 10/20/22 [History] metFORMIN HCL ER [Glucophage XR] 500 mg PO DAILY 10/20/22 [History] Galantamine HBr [Razadyne ER] 24 mg PO DAILY 04/11/24 [History] Insulin Aspart [NovoLOG Flexpen] 0 - 6 units SQ W/SUPPER 04/11/24 [History] carvediloL [Coreg] 3.125 mg PO BID-W/MEALS 04/11/24 [History] Aspirin 81 mg PO DAILY #30 tab 04/13/24 [Rx] Ranolazine [Ranexa] 500 mg PO BID@1100,2300 05/11/24 [History] ALPRAZolam [Xanax] 0.25 mg PO TID PRN 07/24/24 [History] Cyanocobalamin (Vitamin B-12) [Vitamin B-12] 1,000 mcg PO DAILY 07/24/24 [History] L.acidoph,Paracasei, B.lactis [Probiotic] 1 cap PO DAILY 07/24/24 [History] Niacinamide 500 mg PO DAILY 07/24/24 [History] Omeprazole 20 mg PO DAILY 07/24/24 [History] Vit C/E/Zn/Coppr/Lutein/Zeaxan [Preservision Areds 2 Softgel] 1 cap PO BID 07/24/24 [History] Isosorbide Mononitrate ER [Imdur] 30 mg PO DAILY tab 07/25/24 [Rx] Follow up Appointment(s)/Referral(s): Yelitza Mensah MD [STAFF PHYSICIAN] - 1 Week Blaine Dawn MD [Primary Care Provider] - 3 Days Discharge Disposition: HOME SELF-CARE
[2024-07-25] MEDS: RANOLAZINE 500 MG TAB.ER.12H PO SCH (13:09)
[2024-07-25] MEDS: MAGNESIUM SULFATE-D5W PMX 1 GM in DEXTROSE/WATER 1 100ML.BAG IVPB ONE (13:09)
== END 2024-07-25 14:25 | disposition home or self-care (01) ==
LOC: EC 17:28 → 6NMEDSUR 19:01
PROVIDERS: ADMIT Internal Medicine; ATTEND Internal Medicine
DX: R07.2 Precordial pain (principal); I25.10 Atherosclerotic heart disease of native coronary artery without angina pectoris; E83.42 Hypomagnesemia; I08.1 Rheumatic disorders of both mitral and tricuspid valves; F03.94 Unspecified dementia, unspecified severity, with anxiety; I10 Essential (primary) hypertension; E78.5 Hyperlipidemia, unspecified; R25.1 Tremor, unspecified; J98.11 Atelectasis; R42 Dizziness and giddiness; Z79.4 Long term (current) use of insulin; Z79.84 Long term (current) use of oral hypoglycemic drugs; Z79.1 Long term (current) use of non-steroidal anti-inflammatories (NSAID); Z79.82 Long term (current) use of aspirin; Z79.899 Other long term (current) drug therapy; Z88.5 Allergy status to narcotic agent; Z91.048 Other nonmedicinal substance allergy status; Z95.1 Presence of aortocoronary bypass graft; Z95.5 Presence of coronary angioplasty implant and graft; Z87.891 Personal history of nicotine dependence
CPT/HCPCS: 96365; 96376; 99285; 36415; 93005; 83880; 80053; 83735; 84484; 85025; 85610; 85730; 71046; G0378 ×2; J3475 ×2

== ENCOUNTER 2024-07-26 14:33 | Observation (INO) | payer MEDICARE ==
[2024-07-26 15:02] LABS: Basophils # (A) 0.05 10*3/uL (0.00-0.10); Basophils % (A) 0.6 %; Eosinophils # (A) 0.29 10*3/uL (0.04-0.35); Eosinophils % (A) 3.3 %; Lymphocytes # (A) 1.25 10*3/uL (0.90-5.00); Lymphocytes % (A) 14.3 %; MCHC 32.4 g/dL (32.0-37.0); MCV 95.6 fL (80.0-97.0); Mean Platelet Volume 8.7 fL (9.5-12.2); Monocytes # (A) 0.74 10*3/uL (0.20-1.00); Monocytes % (A) 8.4 %; Neutrophils # (A) 6.39 10*3/uL (1.80-7.70); Neutrophils % (A) 72.9 %; Platelet Count 176 10*3/uL (140-440); RBC 3.87 10*6/uL (4.40-5.60); RDW 13.6 % (11.5-14.5); WBC 8.76 10*3/uL (4.50-10.00)
[2024-07-26 15:14] LABS: INR 0.9 (<1.2); Prothrombin Time 10.5 sec (10.0-12.5)
[2024-07-26 15:19] LABS: ALT 26 U/L (4-49); AST 31 U/L (17-59); African American GFR (CKD) 74 (>60 ml/min/1.73 sqM); Alkaline Phosphatase 78 U/L (38-126); Anion Gap 8 mmol/L; Blood Urea Nitrogen 29 mg/dL (9-20); Calcium 9.4 mg/dL (8.4-10.2); Carbon Dioxide 26 mmol/L (22-30); Chloride 101 mmol/L (98-107); Glucose 194 mg/dL (74-99); Magnesium 2.1 mg/dL (1.6-2.3); Non-African American GFR(CKD) 64 (>60 ml/min/1.73 sqM); Sodium 135 mmol/L (137-145); Total Bilirubin 0.4 mg/dL (0.2-1.3); Total Protein 6.7 g/dL (6.3-8.2)
[2024-07-26 15:26] LABS: NT-Pro-B-Type Natriuretic Pept 1940 pg/mL
[2024-07-26] MEDS: SODIUM CHLORIDE 0.9% 500 ML 500 ML IV ONE (15:33)
[2024-07-26 15:35] LABS: Partial Thromboplastin Time 20.2 sec (22.0-30.0)
--- NOTE | 2024-07-26 15:53 | ED ---
General Adult HPI - General Chief complaint: Weakness Stated complaint: AMS/Weakness/ in WR Time Seen by Provider: 07/26/24 14:36 Source: patient, family, EMS, RN notes reviewed, old records reviewed Mode of arrival: EMS Limitations: altered mental status - History of Present Illness Initial comments: 88 old male history of dementia presents for evaluation. History is obtained from the patient's states that they have been out running errands and the patient had felt somewhat weak and had an episode where he had some mild brief shaking episode and felt this may have been related to seizure. Patient did not fully lose consciousness and there was no postictal phase. His blood pressure was measured at the time and it was low. Patient was seen in this hospital over the past 2 days for chest pain. He had an increase in his Imdur dose which he had taken just prior to this episode. Patient had also apparently complained of a headache over the past 24 hours which is atypical. - Related Data Home Medications Medication Instructions Recorded Confirmed Gabapentin [Neurontin] 100 mg PO HS 03/14/17 07/26/24 Insulin Glargine,Hum.rec.anlog 8 unit SQ DAILY 03/14/17 07/26/24 [Lantus Solostar Pen] Nitroglycerin Sl Tabs [Nitrostat] 0.4 mg SUBLINGUAL Q5M PRN 04/26/19 07/26/24 Tamsulosin HCl [Flomax] 0.4 mg PO DAILY 04/26/19 07/26/24 ARIPiprazole [Abilify] 5 mg PO DAILY 03/16/22 07/26/24 Atorvastatin [Lipitor] 80 mg PO DAILY 03/16/22 07/26/24 Memantine [Namenda] 10 mg PO BID 03/16/22 07/26/24 Insulin Aspart [NovoLOG Flexpen] 12 - 16 units SQ W/BRKFST 10/20/22 07/26/24 metFORMIN HCL ER [Glucophage XR] 500 mg PO DAILY 10/20/22 07/26/24 Galantamine HBr [Razadyne ER] 24 mg PO DAILY 04/11/24 07/26/24 Insulin Aspart [NovoLOG Flexpen] 0 - 6 units SQ W/SUPPER 04/11/24 07/26/24 carvediloL [Coreg] 3.125 mg PO BID-W/MEALS 04/11/24 07/26/24 Ranolazine [Ranexa] 500 mg PO BID@1100,2300 05/11/24 07/26/24 ALPRAZolam [Xanax] 0.25 mg PO TID PRN 07/24/24 07/26/24 Cyanocobalamin (Vitamin B-12) 1,000 mcg PO DAILY 07/24/24 07/26/24 [Vitamin B-12] L.acidoph,Paracasei, B.lactis 1 cap PO DAILY 07/24/24 07/26/24 [Probiotic] Niacinamide 500 mg PO DAILY 07/24/24 07/26/24 Omeprazole 20 mg PO DAILY 07/24/24 07/26/24 Vit C/E/Zn/Coppr/Lutein/Zeaxan 1 cap PO BID 07/24/24 07/26/24 [Preservision Areds 2 Softgel] Magnesium Oxide [Magnesium] 500 mg PO DIRECTED 07/26/24 07/26/24 Previous Rx's Medication Instructions Recorded Aspirin 81 mg PO DAILY #30 tab 04/13/24 Isosorbide Mononitrate ER [Imdur] 30 mg PO DAILY tab 07/25/24 Allergies Allergy/AdvReac Type Severity Reaction Status Date / Time codeine Allergy Unknown Verified 07/26/24 18:17 povidone-iodine Allergy Rash/Hives Verified 07/26/24 18:17 [From Betadine] soap [From Betadine] Allergy Rash/Hives Verified 07/26/24 18:17 Review of Systems ROS Statement: Those systems with pertinent positive or pertinent negative responses have been documented in the HPI. ROS Other: All systems not noted in ROS Statement are negative. Past Medical History Past Medical History: Coronary Artery Disease (CAD), Cancer, CVA/TIA, Diabetes Mellitus, GERD/Reflux, Hyperlipidemia, Hypertension, Memory Impairment, Myocardial Infarction ([place]) Additional Past Medical History / Comment(s): Hx skin cancer, head and thigh. Neuropathy feet/lower legs. Chronic dry skin and runny nose. TIA X2-NO DEFICITS, DUPUYTREN'S BILAT HANDS, BRUISES EASY Last Myocardial Infarction Date:: 03/06/22-IN [place], [place] History of Any Multi-Drug Resistant Organisms: MRSA Date of last positivie culture/infection: 01/20/21 MDRO Source:: MRSA FACE Past Surgical History: Coronary Bypass/CABG, Heart Catheterization, Heart Catheterization With Stent, Joint Replacement, Prostate Surgery Additional Past Surgical History / Comment(s): Total knee replacements - X1 right and X2 left. CABG 2003. 5 stents placed Apr 17 [facility]. Cataracts removed. COLONOSCOPY, NUMEROUS SKIN CANCER SPOTS REMOVED Past Anesthesia/Blood Transfusion Reactions: No Reported Reaction Date of Last Stent Placement:: 04/2019 Past Psychological History: Anxiety Smoking Status: Former smoker Past Alcohol Use History: None Reported Past Drug Use History: None Reported - Past Family History Mother Family Medical History: Mitral Valve Prolapse (MVP) Additional Family Medical History / Comment(s): age 62. Father Family Medical History: Cancer Additional Family Medical History / Comment(s): age 72, prostate cancer. General Exam - General Exam Comments Initial Comments: Was pt. sent in by a medical professional or institution (, PA, BOX PRINTER, urgent care, hospital, or long term...) When possible be specific @ -[No] Did you speak to anyone other than the patient for history (EMS, parent, family, police, friend...)? What history was obtained from this source @ -[No] Did you review nursing and triage notes (agree or disagree)? Why? @ -[I reviewed and agree with nursing and triage notes] Were old charts reviewed (outside hosp., previous admission, EMS record, old EKG, old radiological studies, urgent care reports/EKG's, long term records)? Report findings @ -[No old charts were reviewed] Differential Altered Mental Status: Hypoglycemia, DKA, hypercapnia, ETOH, overdose, CO poisoning, trauma, myxedema coma, HTN encephalopathy, infection, encephalitis, psychosis, intercranial hemorrhage, hepatic encephalopathy, meningitis, CVA, this is not meant to be an all-inclusive list EKG interpreted by me (3pts min.). @EKG: Sinus rhythm rate of 89 FL interval 144, QRS duration 98, QTc [address] segment elevation. X-rays interpreted by me (1pt min.). @ -[None done] CT interpreted by me (1pt min.). @ -[None done] U/S interpreted by me (1pt. min.). @ -[None done] What testing was considered but not performed or refused? (CT, X-rays, U/S, labs)? Why? @ -[None] What meds were considered but not given or refused? Why? @ -[None] Did you discuss the management of the patient with other professionals (professionals i.e. , PA, BOX PRINTER, lab, RT, psych nurse, psychotherapist social worker, stem crusher, teacher, public relations officer, special education case manager)? Give summary @ -[No] Was smoking cessation discussed for >3mins.? @ -[No] Was critical care preformed (if so, how long)? @ -[No] Were there social determinants of health that impacted care today? How? (Homelessness, low income, unemployed, alcoholism, drug addiction, transport ation, low edu. Level, literacy, decrease access to med. care, custodial, rehab)? @ -[No] Was there de-escalation of care discussed even if they declined (Discuss DNR or withdrawal of care, Hospice)? DNR status @ -[No] What co-morbidities impacted this encounter? (DM, HTN, Smoking, COPD, CAD, Cancer, CVA, ARF, Chemo, Hep., AIDS, mental health diagnosis, sleep apnea, morbid obesity)? @ -[None] Was patient admitted / discharged? Hospital course, mention meds given and route, prescriptions, significant lab abnormalities, going to OR and other pertinent info. @ -[hospital course] Undiagnosed new problem with uncertain prognosis? @ -[No] Drug Therapy requiring intensive monitoring for toxicity (Heparin, Nitro, Insulin, Cardizem)? @ -[No] Were any procedures done? @ -[No] Diagnosis/symptom? @ -[default] Acute, or Chronic, or Acute on Chronic? @ -[default] Uncomplicated (without systemic symptoms) or Complicated (systemic symptoms)? @ -[default] Side effects of treatment? @ -[No] Exacerbation, Progression, or Severe Exacerbation? @ -[No] Poses a threat to life or bodily function? How? (Chest pain, [place], [place], pneumonia, PE, COPD, DKA, ARF, appy, cholecystitis, CVA, Diverticulitis, Homicidal, Suicidal, threat to staff... and all critical care pts) @ -[No] Limitations: altered mental status General appearance: alert, in no apparent distress Head exam: Present: atraumatic, normocephalic Eye exam: Present: normal appearance, PERRL ENT exam: Present: normal exam Neck exam: Present: normal inspection. Absent: tenderness, meningismus Respiratory exam: Present: normal lung sounds bilaterally. Absent: respiratory distress, wheezes Cardiovascular Exam: Present: regular rate, normal rhythm GI/Abdominal exam: Present: soft. Absent: distended, tenderness Extremities exam: Present: normal inspection, normal capillary refill Neurological exam: Present: alert, CN II-XII intact. Absent: motor sensory defi cit Psychiatric exam: Present: normal affect, normal mood Skin exam: Present: warm, dry, intact. Absent: cyanosis, diaphoretic Course Vital Signs 07/26/24 07/26/24 07/26/24 14:37 15:52 16:06 Temperature 97.4 F L Pulse Rate 90 93 81 Respiratory 22 18 18 Rate Blood Pressure 89/54 85/49 93/49 O2 Sat by Pulse 94 L 97 96 Oximetry 07/26/24 07/26/24 17:30 18:47 Temperature 98.4 F Pulse Rate 98 97 Respiratory 20 18 Rate Blood Pressure 102/55 98/71 O2 Sat by Pulse 98 97 Oximetry Medical Decision Making - Medical Decision Making Was pt. sent in by a medical professional or institution (, PA, BOX PRINTER, urgent care, hospital, or long term...) When possible be specific @ -No Did you speak to anyone other than the patient for history (EMS, parent, family, police, friend...)? What history was obtained from this source @ -History from the . Did you review nursing and triage notes (agree or disagree)? Why? @ -I reviewed and agree with nursing and triage notes Were old charts reviewed (outside hosp., previous admission, EMS record, old EKG, old radiological studies, urgent care reports/EKG's, long term records)? Report findings @ -No old charts were reviewed Differential Syncope: Valvular disease, hypertrophic cardiomyopathy, pulmonary embolism, tamponade, tachycardia, bradycardia, [place], hypovolemia, hemorrhage, dissection, anemia, intracranial hemorrhage, seizure, hypoglycemia, carbon monoxide poisoning, this is not meant to be an all-inclusive list. EKG interpreted by me (3pts min.). @ -[EKG: Sinus rhythm ventricular rate of 89, FL interval 144, QRS duration 928, QTc 421 X-rays interpreted by me (1pt min.). @ -Chest x-ray negative for acute cardiopulmonary findings. CT interpreted by me (1pt min.). @CT negative for intracranial hemorrhage, shows new remote lacunar infarct. U/S interpreted by me (1pt. min.). @ -None done What testing was considered but not performed or refused? (CT, X-rays, U/S, labs)? Why? @ -None What meds were considered but not given or refused? Why? @ -None Did you discuss the management of the patient with other professionals (professionals i.e. , PA, BOX PRINTER, lab, RT, psych nurse, psychotherapist social worker, stem crusher, teacher, public relations officer, special education case manager)? Give summary @ -[Case discussed with [facility], will admit Was smoking cessation discussed for >3mins.? @ -No Was critical care preformed (if so, how long)? @ -No Were there social determinants of health that impacted care today? How? (Homelessness, low income, unemployed, alcoholism, drug addiction, transportation, low edu. Level, literacy, decrease access to med. care, custodial, rehab)? @ -No Was there de-escalation of care discussed even if they declined (Discuss DNR or withdrawal of care, Hospice)? DNR status @ -No What co-morbidities impacted this encounter? (DM, HTN, Smoking, COPD, CAD, Cancer, CVA, ARF, Chemo, Hep., AIDS, mental health diagnosis, sleep apnea, morbid obesity)? @ -CVA, diabetes, dementia Was patient admitted / discharged? Hospital course, mention meds given and [facility] [place], prescriptions, significant lab abnormalities, going to OR and other pertinent info. @ -88-year-old male presenting with hypotension, altered mental status, likely brief syncopal episode. There was concern for seizure but he did not have features consistent with seizure-like activity. Patient remains alert with marginal blood pressure while in the emergency department. This does respond to fluids. His workup is otherwise unremarkable. He will be observed overnight for hydration, cardiology evaluation given the recent medication change. Undiagnosed new problem with uncertain prognosis? @ -No Drug Therapy requiring intensive monitoring for toxicity (Heparin, Nitro, Insulin, Cardizem)? @ -No Were any procedures done? @ -No Diagnosis/symptom? @ -Syncope Acute, or Chronic, or Acute on Chronic? @ -Acute Uncomplicated (without systemic symptoms) or Complicated (systemic symptoms)? @ -Default Side effects of treatment? @ -No Exacerbation, Progression, or Severe Exacerbation? @ -No Poses a threat to life or bodily function? How? (Chest pain, [place], [place], pneumonia, PE, COPD, DKA, ARF, appy, cholecystitis, CVA, Diverticulitis, Homicidal, Suicidal, threat to staff... and all critical care pts) @ -[Yes, hypotension, shock, arrhythmia - Lab Data Result diagrams: 07/26/24 14:52 07/26/24 14:52 Lab Results 07/26/24 07/26/24 07/26/24 Range/Units 14:52 14:52 14:52 WBC 8.76 (4.50-10.00) 10*3/uL RBC 3.87 L (4.40-5.60) 10*6/uL Hgb 12.0 L (13.0-17.0) g/dL Hct 37.0 L (39.6-50.0) % MCV 95.6 (80.0-97.0) fL MCH 31.0 (27.0-32.0) pg MCHC 32.4 (32.0-37.0) g/dL Plt Count 176 (140-440) 10*3/uL MPV 8.7 L (9.5-12.2) fL Immature Gran % (Auto) 0.5 % Neutrophils % 72.9 % Lymphocytes % 14.3 % Monocytes % 8.4 % Eosinophils % 3.3 % Basophils % 0.6 % Immature Gran # 0.04 (0.00-0.04) 10*3/uL Neutrophils # 6.39 (1.80-7.70) 10*3/uL Lymphocytes # 1.25 (0.90-5.00) 10*3/uL Monocytes # 0.74 (0.20-1.00) 10*3/uL Eosinophils # 0.29 (0.04-0.35) 10*3/uL Basophils # 0.05 (0.00-0.10) 10*3/uL PT 10.5 (10.0-12.5) sec INR 0.9 (<1.2) APTT 20.2 L (22.0-30.0) sec Sodium 135 L (137-145) mmol/L Potassium 5.0 (3.5-5.1) mmol/L Chloride 101 (98-107) mmol/L Carbon Dioxide 26 (22-30) mmol/L Anion Gap 8 mmol/L BUN 29 H (9-20) mg/dL Creatinine 1.06 (0.66-1.25) mg/dL Est GFR (CKD-EPI)AfAm 74 (>60 ml/min/1.73 sqM) Est GFR (CKD-EPI)NonAf 64 (>60 ml/min/1.73 sqM) Glucose 194 H (74-99) mg/dL Plasma Lactic Acid Antwon (0.7-2.0) mmol/L Calcium 9.4 (8.4-10.2) mg/dL Magnesium 2.1 (1.6-2.3) mg/dL Total Bilirubin 0.4 (0.2-1.3) mg/dL AST 31 (17-59) U/L ALT 26 (4-49) U/L Alkaline Phosphatase 78 (38-126) U/L Troponin I (0.000-0.034) ng/mL NT-Pro-B Natriuret Pep 1940 pg/mL Total Protein 6.7 (6.3-8.2) g/dL Albumin 4.0 (3.5-5.0) g/dL Urine Color Urine Appearance (Clear) Urine pH (5.0-8.0) Ur Specific [place] (1.001-1.035) Urine Protein (Negative) Urine Glucose (UA) (Negative) Urine Ketones (Negative) Urine Blood (Negative) Urine Nitrite (Negative) Urine Bilirubin (Negative) Urine Urobilinogen (<2.0) mg/dL Ur Leukocyte Esterase (Negative) 07/26/24 07/26/24 07/26/24 Range/Units 14:52 14:52 16:43 WBC (4.50-10.00) 10*3/uL RBC (4.40-5.60) 10*6/uL Hgb (13.0-17.0) g/dL Hct (39.6-50.0) % MCV (80.0-97.0) fL MCH (27.0-32.0) pg MCHC (32.0-37.0) g/dL Plt Count (140-440) 10*3/uL MPV (9.5-12.2) fL Immature Gran % (Auto) % Neutrophils % % Lymphocytes % % Monocytes % % Eosinophils % % Basophils % % Immature Gran # (0.00-0.04) 10*3/uL Neutrophils # (1.80-7.70) 10*3/uL Lymphocytes # (0.90-5.00) 10*3/uL Monocytes # (0.20-1.00) 10*3/uL Eosinophils # (0.04-0.35) 10*3/uL Basophils # (0.00-0.10) 10*3/uL PT (10.0-12.5) sec INR (<1.2) APTT (22.0-30.0) sec Sodium (137-145) mmol/L Potassium (3.5-5.1) mmol/L Chloride (98-107) mmol/L Carbon Dioxide (22-30) mmol/L Anion Gap mmol/L BUN (9-20) mg/dL Creatinine (0.66-1.25) mg/dL Est GFR (CKD-EPI)AfAm (>60 ml/min/1.73 sqM) Est GFR (CKD-EPI)NonAf (>60 ml/min/1.73 sqM) Glucose (74-99) mg/dL Plasma Lactic Acid Antwon 1.5 (0.7-2.0) mmol/L Calcium (8.4-10.2) mg/dL Magnesium (1.6-2.3) mg/dL Total Bilirubin (0.2-1.3) mg/dL AST (17-59) U/L ALT (4-49) U/L Alkaline Phosphatase (38-126) U/L Troponin I <0.012 (0.000-0.034) ng/mL NT-Pro-B Natriuret Pep pg/mL Total Protein (6.3-8.2) g/dL Albumin (3.5-5.0) g/dL Urine Color Colorless Urine Appearance Clear (Clear) Urine pH 6.5 (5.0-8.0) Ur Specific [place] 1.013 (1.001-1.035) Urine Protein Negative (Negative) Urine Glucose (UA) Trace H (Negative) Urine Ketones Negative (Negative) Urine Blood Negative (Negative) Urine Nitrite Negative (Negative) Urine Bilirubin Negative (Negative) Urine Urobilinogen <2.0 (<2.0) mg/dL Ur Leukocyte Esterase Negative (Negative) Disposition Clinical Impression: Syncope Disposition: ADMITTED IP TO THIS HOSP Condition: Stable Is patient prescribed a controlled substance at d/c from ED?: No Referrals: Blaine Dawn MD [Primary Care Provider] - 1-2 days Time of Disposition: 19:07
--- NOTE | 2024-07-26 15:54 | CT ---
EXAMINATION TYPE: CT brain wo con DATE OF EXAM: 07/26/2024 COMPARISON: 03/26/2022 CLINICAL INDICATION: Male, 88 years old with history of AMS; PHH, Pt not feeling well, weakness and h ad low B/P per EMS. CT DLP: 1170.4 mGycm Automated exposure control for dose reduction was used. Findings: The ventricles, basal cisterns and sulci over convexities are markedly enlarged consistent with marke d generalized atrophy. There is a new remote lacunar infarct in the right frontal white matter. There is no mass effect or shift of midline structures. There is no acute intra or extra-axial hemorrhage. The posterior fossa including the brainstem, fourth ventricle and cerebellopontine angles appear kay sly normal. The intraorbital contents appear normal symmetric Visualized paranasal sinuses and mastoid air cells are well aerated. Calvarium is intact. IMPRESSION: 1. Marked generalized atrophy. 2. No acute bleed or mass effect. 3. New Remote lacunar infarct in the right frontal white matter. [facility], Workstation: [id number] 07/26/2024 3:51 PM
--- NOTE | 2024-07-26 15:55 | XR ---
EXAMINATION TYPE: XR chest 2V DATE OF EXAM: 07/26/2024 3:49 PM COMPARISON: Chest radiographs from 07/24/2024 TECHNIQUE: XR chest 2V Frontal and lateral views of the chest. CLINICAL INDICATION:Male, 88 years old with history of Weakness; FINDINGS: Lungs/Pleura: There is no evidence of pleural effusion, focal consolidation, or pneumothorax. Pulmonary vascularity: Unremarkable. Heart/mediastinum: Cardiomediastinal silhouette is unremarkable. Musculoskeletal: Multiple level degenerative disc disease changes seen throughout the spine. Midline sternotomy wires are noted and stable. Bilateral shoulder arthropathy. Other: Surgical clips overlie the left chest. IMPRESSION: Chronic changes without acute pulmonary process. No significant change from prior. [facility], , 07/26/2024 3:53 PM
[2024-07-26 17:27] LABS: Appearance,Urine Clear (Clear); Bilirubin,Urine Negative (Negative); Blood,Urine Negative (Negative); Color,Urine Colorless; Glucose,Urine (UA) Trace (Negative); Ketones,Urine Negative (Negative); Leukocyte Esterase,Urine Negative (Negative); Nitrite,Urine Negative (Negative); PH, Urine 6.5 (5.0-8.0); Protein,Urine Negative (Negative); Specific Gravity,Urine 1.013 (1.001-1.035); Urobilinogen,Urine <2.0 mg/dL (<2.0)
[2024-07-26] MEDS: ASPIRIN 325 MG TAB PO STA (18:51)
[2024-07-26] MEDS: SODIUM CHLORIDE 0.9% 1,000 ML IV SCH (18:51)
[2024-07-26] MEDS ORDERED: ACETAMINOPHEN TAB 325 MG TAB PO PRN (19:00)
[2024-07-26] MEDS ORDERED: NALOXONE 0.4 MG/ML 1 ML VIAL IV PRN (19:00)
[2024-07-26 21:08] LABS: Glucose,Whole Blood 261 mg/dL (70-110)
[2024-07-27 08:20] LABS: Glucose,Whole Blood 145 mg/dL (70-110)
[2024-07-27] MEDS: carvediloL 3.125 MG TAB PO SCH (11:37)
[2024-07-27] MEDS: ISOSORBIDE MONONITRATE ER 30 MG TAB.ER.24H PO SCH (11:38)
[2024-07-27] MEDS: ATORVASTATIN 80 MG TAB PO SCH (11:38)
[2024-07-27] MEDS: RANOLAZINE 500 MG TAB.ER.12H PO SCH (11:38)
[2024-07-27] MEDS: ASPIRIN 81 MG PO SCH (11:38)
[2024-07-27 12:13] LABS: Glucose,Whole Blood 212 mg/dL (70-110)
[2024-07-27 14:46] VITALS: BP 114/66; PULSE 89; RESP 18; TEMP 97.8
--- NOTE | 2024-07-31 12:15 | CONS ---
CONSULTATION HISTORY OF PRESENT ILLNESS: This is an 88-year-old male with a history of hypertension, hyperlipidemia, diabetes, and coronary artery disease with previous CABG and stenting, and cardiomyopathy. The patient followed in the office with Dr. Mensah. We have been asked to see the patient in consultation for syncope. The patient was examined this morning at the bedside. His is present. She states that they were at Dr. Westbrook's office yesterday, getting a new DEXA machine when the patient started to feel dizzy, he thought that maybe his blood sugar was low. The patient's spouse states that he did not completely pass out, but she states that she thought he was having some seizure-type activity. This morning, the patient denies any chest pain or pressure. He denies any shortness of breath. He denies any dizziness or lightheadedness. Telemetry has been revealing sinus mechanism. Orthostatic blood pressures were obtained which were unremarkable. REVIEW OF SYSTEMS: Negative unless indicated above in the HPI. PHYSICAL EXAMINATION: VITAL SIGNS: Have been reviewed. GENERAL: The patient is well developed, in no acute distress. LUNGS: Clear with no crackles, rhonchi, or wheezing. HEART: S1, S2 audible. No murmur noted. ABDOMEN: Soft, nontender, nondistended. EXTREMITIES: No clubbing or cyanosis. Peripheral pulses intact. No peripheral edema. NEUROLOGIC: The patient is awake and alert, oriented x3. ASSESSMENT: 1. Presyncope. 2. Coronary artery disease with previous 3-vessel CABG in 2001 with subsequent stenting. 3. Hypertension. 4. Hyperlipidemia. 5. Diabetes. PLAN: The patient's symptoms do not appear to be cardiac in etiology. He denies having an actual syncopal event. We will continue with his home cardiac medications without any changes at this time. No need to repeat echocardiogram as this was performed in April 2024 revealing EF 42% with mild MR and mild TR. The patient may be discharged home today from a cardiac standpoint and follow up in the office with Dr. Mensah. Nurse practitioner note has been reviewed by physician. Signing provider agrees with the above documentation which has been documented by [employer] L[employer] CUTTER, acting as a scribe. MMODL / IJN: [id number] /
== END 2024-07-27 15:57 | disposition home or self-care (01) ==
LOC: EC 14:33 → 6NMEDSUR 19:01
PROVIDERS: ADMIT Hospitalist; ATTEND Hospitalist
DX: R55 Syncope and collapse (principal); I10 Essential (primary) hypertension; I25.10 Atherosclerotic heart disease of native coronary artery without angina pectoris; E78.5 Hyperlipidemia, unspecified; K21.9 Gastro-esophageal reflux disease without esophagitis; F41.9 Anxiety disorder, unspecified; E11.40 Type 2 diabetes mellitus with diabetic neuropathy, unspecified; I25.2 Old myocardial infarction; Z85.828 Personal history of other malignant neoplasm of skin; Z86.73 Personal history of transient ischemic attack (TIA), and cerebral infarction without residual deficits; Z87.891 Personal history of nicotine dependence; Z95.5 Presence of coronary angioplasty implant and graft; Z79.4 Long term (current) use of insulin; Z79.82 Long term (current) use of aspirin; Z79.84 Long term (current) use of oral hypoglycemic drugs; Z79.899 Other long term (current) drug therapy; Z88.5 Allergy status to narcotic agent
CPT/HCPCS: 96360; 99285; 36415; 93005; 83880; 80053; 83605; 83735; 84484; 85025; 85610; 85730; 81003; 71046; 70450; G0378 ×2

== ENCOUNTER 2024-10-19 14:43 | Emergency (ER) | payer MEDICARE ==
[2024-10-19 14:52] VITALS: TEMP 97.6
--- NOTE | 2024-10-19 15:16 | ED ---
General Adult HPI - General Chief complaint: Fall Stated complaint: Fall-Head Injury Time Seen by Provider: 10/19/24 14:59 Source: EMS Mode of arrival: EMS Limitations: altered mental status - History of Present Illness Initial comments: Patient is an 88-year-old gentleman with a past medical history of dementia presenting today for mechanical trip and fall. History is provided by patient's due to patient's dementia. She states they were walking and patient was getting tired out, turned around and tripped on the sidewalk, falling onto the grass. She states that he hit his head on the grass and did not lose consciousness. He is currently at his baseline mental status and does not normally note time or place. He sustained abrasion to the left side of his face. They did not try to ambulate him after the fall. He is only on 81 mg aspirin no thinners. He does have chronic right shoulder pain. Patient currently denies any headache, neck pain, back pain, chest pain abdominal pain, shoulder pain or pain in his extremities. - Related Data Home Medications Medication Instructions Recorded Confirmed Gabapentin [Neurontin] 100 mg PO HS 03/14/17 08/26/24 Insulin Glargine,Hum.rec.anlog 9 unit SQ DAILY 03/14/17 08/26/24 [Lantus Solostar Pen] Nitroglycerin Sl Tabs [Nitrostat] 0.4 mg SUBLINGUAL Q5M PRN 04/26/19 08/26/24 Tamsulosin HCl [Flomax] 0.4 mg PO DAILY 04/26/19 08/26/24 ARIPiprazole [Abilify] 5 mg PO DAILY 03/16/22 08/26/24 Atorvastatin [Lipitor] 80 mg PO DAILY 03/16/22 08/26/24 Memantine [Namenda] 10 mg PO BID 03/16/22 08/26/24 Insulin Aspart [NovoLOG Flexpen] 12 - 16 units SQ W/BRKFST 10/20/22 08/26/24 metFORMIN HCL ER [Glucophage XR] 500 mg PO DAILY 10/20/22 08/26/24 Galantamine HBr [Razadyne ER] 24 mg PO DAILY 04/11/24 08/26/24 Insulin Aspart [NovoLOG Flexpen] 0 - 6 units SQ W/SUPPER 04/11/24 08/26/24 carvediloL [Coreg] 3.125 mg PO BID-W/MEALS 04/11/24 08/26/24 Ranolazine [Ranexa] 500 mg PO BID@1100,2300 05/11/24 08/26/24 ALPRAZolam [Xanax] 0.25 mg PO TID PRN 07/24/24 08/26/24 Cyanocobalamin (Vitamin B-12) 1,000 mcg PO DAILY 07/24/24 08/26/24 [Vitamin B-12] L.acidoph,Paracasei, B.lactis 1 cap PO DAILY 07/24/24 08/26/24 [Probiotic] Niacinamide 500 mg PO DAILY 07/24/24 08/26/24 Omeprazole 20 mg PO DAILY 07/24/24 08/26/24 Vit C/E/Zn/Coppr/Lutein/Zeaxan 1 cap PO BID 07/24/24 08/26/24 [Preservision Areds 2 Softgel] Previous Rx's Medication Instructions Recorded Aspirin 81 mg PO DAILY #30 tab 04/13/24 Isosorbide Mononitrate ER [Imdur] 30 mg PO DAILY tab 07/25/24 Allergies Allergy/AdvReac Type Severity Reaction Status Date / Time codeine Allergy Unknown Verified 10/19/24 14:52 povidone-iodine Allergy Rash/Hives Verified 10/19/24 14:52 [From Betadine] soap [From Betadine] Allergy Rash/Hives Verified 10/19/24 14:52 Review of Systems ROS Statement: Those systems with pertinent positive or pertinent negative responses have been documented in the HPI. ROS Other: All systems not noted in ROS Statement are negative. Past Medical History Past Medical History: Coronary Artery Disease (CAD), Cancer, CVA/TIA, Dementia, Diabetes Mellitus, GERD/Reflux, Hyperlipidemia, Hypertension, Memory Impairment, Myocardial Infarction (MO) Additional Past Medical History / Comment(s): Hx skin cancer, head and thigh. Neuropathy feet/lower legs. Chronic dry skin and runny nose. 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 CABG 2004. 5 stents placed Apr 17 [facility]. Cataracts removed. COLONOSCOPY, NUMEROUS SKIN CANCER SPOTS REMOVED Past Anesthesia/Blood Transfusion Reactions: No Reported Reaction Date of Last Stent Placement:: 04/2019 Past Psychological History: Anxiety Smoking Status: Former smoker Past Alcohol Use History: None Reported Past Drug Use History: None Reported - Past Family History Mother Family Medical History: Mitral Valve Prolapse (MVP) Additional Family Medical History / Comment(s): age 62. Father Family Medical History: Cancer Additional Family Medical History / Comment(s): age 72, prostate cancer. General Exam - General Exam Comments Initial Comments: PE: CONSTITUTIONAL: [no apparent distress, chronically ill-appearing nontoxic SKIN: Warm, dry, no jaundice, hives or petechiae bruising on left side of face, skin tear to left side of face, abrasions to right knee and right palm, small bruising to ulnar aspect right wrist EYES: Pupils are equally round, extraocular movements intact without nystagmus, clear conjunctiva, non-icteric sclera HENT: Normocephalic, swelling and bruising around left side of face and abrasion moist mucus membranes, oropharynx clear without exudates NECK: , Presents and presents in c-collar normal appearance, no midline spinal tenderness palpation PULMONARY: Clear to auscultation without wheezes, rhonchi, or rales, normal excursion, no accessory muscle use and no stridor CARDIOVASCULAR: Regular rate, rhythm, normal S1 and S2. No appreciated murmurs, rubs or gallops. Strong radial pulses with intact distal perfusion. No lower extremity edema GASTROINTESTINAL: Soft, active bowel sounds throughout, non-tender, non- distended, no palpable masses, no rebound or guarding. No hepatosplenomegaly GENITOURINARY: MUSCULOSKELETAL: Extremities have no gross deformity, mild swelling and TTP distal ulnar aspect right wrist without gross deformity. Patient able to range left upper extremity and bilateral lower extremities to full range of motion. Does have difficulty abducting at the right shoulder the patient's states is secondary to chronic injury. Extremities are nontender to palpation. No midline spinal tenderness to palpation NEUROLOGIC:_a/o x 1, GCS 14, drowsy difficulty explained today's events the patient states this is normal for him normal mentation and speech. Moves all extremities x 4 without motor or sensory deficit, with exception of above PSYCHIATRIC:_normal mood and affect, thought process is clear and linear Limitations: altered mental status Course Vital Signs 10/19/24 10/19/24 10/19/24 14:44 15:52 18:14 Temperature 97.6 F Pulse Rate 85 80 80 Respiratory 16 20 18 Rate Blood Pressure 103/72 111/60 118/80 O2 Sat by Pulse 95 97 97 Oximetry Procedures - Orthopedic Splinting/Casting Injury #1 Side: right Upper Extremity Injury Location: wrist Upper Extremity Immobilizer: sugar tong splint Additional Comments: post splint check shows extremity neurovascularly intact Medical Decision Making - Medical Decision Making Was pt. sent in by a medical professional or institution (, PA, [employer], urgent care, hospital, or skilled nursing...) When possible be specific @ -No Did you speak to anyone other than the patient for history (EMS, parent, family, police, friend...)? What history was obtained from this source @Spoke with patient's who assisted in providing history stating he had a witnessed fall, hit his head on the grass, is at baseline mental status Did you review nursing and triage notes (agree or disagree)? Why? @ -I reviewed nursing and triage notes agree with triage note Were old charts reviewed (outside hosp., previous admission, EMS record, old EKG, old radiological studies, urgent care reports/EKG's, skilled nursing records)? Report findings @ -Medical records reviewed Differential Diagnosis (chest pain, altered mental status, abdominal pain women, abdominal pain men, vaginal bleeding, weakness, fever, dyspnea, syncope, headache, dizziness, GI bleed, back pain, seizure, CVA, palpatations, mental health, musculoskeletal)? Differential Musculoskeletal Muscular strain, contusion, ligament sprain, fracture, arthritis, septic arthritis, bursitis, cellulitis, muscle spasm, nerve compression, DVT, arterial occlusion, herpes zoster, electrolyte abnormality, tumor.... This is not meant to be in all inclusive list EKG interpreted by me (3pts min.). @ -As above X-rays interpreted by me (1pt min.). @Viewed x-ray of the wrist, shows chronic findings, question nondisplaced ulnar styloid fracture, radiologist read is negative for fracture CT interpreted by me (1pt min.). @ -Personally reviewed CT brain, C-spine and face, I see no evidence of fracture, intracranial hemorrhage or malalignment I agree with radiologist interpretation U/S interpreted by me (1pt. min.). @ -None done What testing was considered but not performed or refused? (CT, X-rays, U/S, labs)? Why? @ -None What meds were considered but not given or refused? Why? @ -None Did you discuss the management of the patient with other professionals (professionals i.e. , PA, [employer], lab, RT, psych nurse, forensic social worker, project asst, teacher, chief learning officer, disease case manager rn)? Give summary @ -No Was smoking cessation discussed for >3mins.? @ -No Was critical care preformed (if so, how long)? @ -No Were there social determinants of health that impacted care today? How? (Homelessness, low income, unemployed, alcoholism, drug addiction, transportati on, low edu. Level, literacy, decrease access to med. care, fpc, rehab)? @ -No Was there de-escalation of care discussed even if they declined (Discuss DNR or withdrawal of care, Hospice)? @ -No What co-morbidities impacted this encounter? (DM, HTN, Smoking, COPD, CAD, Cancer, CVA, ARF, Chemo, Hep., AIDS, mental health diagnosis, sleep apnea, morbid obesity)? @ -Dementia Was patient admitted / discharged? Hospital course, mention meds given and route, prescriptions, significant lab abnormalities, going to OR and other pertinent info. @ -Discharged- This is a pleasant 88 show gentleman history dementia presenting today after mechanical trip and fall where he hit his head on the grass. No LOC. History of hide patient's . Patient is currently oriented x 1 and somewhat drowsy the patient's states this is normal for him as he would normally be taking a nap, during this time of day. He has a lot of bruising on left side of his eye and skin tear to the left side of his face. No septal hematomas or lacerations. Pupils equal round reactive. Extremities are nontender palpation. Patient has chronic right shoulder injury send difficulty abducting at the right shoulder but no sign of acute injury. Will plan for CT brain and C-spine. Patient's agreeable plan of After reviewing patient's imaging I updated patient to imaging findings and cleared their C-Spine. There is no midline cervical neck tenderness or step- offs. The patient denies any numbess, tingling, or weakness of the extremities when moving neck through full ROM. The patient is able to range their neck completely without midline cervical pain, numbness, tingling or weakness. While cleansing pt's wounds noted bruising and TTP near distal ulna. Added XY, which was read as negative however out of concern for ulnar styloid fracture pt was placed in sugar tong splint.Findings were discussed with family. They were directed to follow-up with orthopedic surgeon within 1 week for recheck of patient's ulnar injury. We discussed signs symptoms to monitor warranting return to the ER such as new confusion, difficulty waking the patient, severe headaches nausea or vomiting, uncontrolled pain and should he experience the symptoms or should they have any further concerns or his wellbeing is return to the ER immediately. All questions were answered and patient was discharged in good condition. In my medical judgment there is currently no evidence of an immediate life- threatening or surgical condition. Discharge is therefore indicated at this time. Discharge treatment instructions, follow up instructions, and appropriate emergency department return precautions were discussed with the patient and/or medical decision maker. Patient and/or medical decision maker expressed understanding of and agreed with the treatment plan, follow up instructions, and emergency department return precaution. All patient's and/or medical decision maker's questions were answered. The patient was advised that a small risk still exists that a serious condition could develop and was therefore instructed to return to the ED for any changes in symptoms, persistent symptoms, inability to obtain proper follow-up or for any further concerns. Patient received verbal and written instructions for this condition. Undiagnosed new problem with uncertain prognosis? @ -No Drug Therapy requiring intensive monitoring for toxicity (Heparin, Nitro, Insulin, Cardizem)? @ -No Were any procedures done? @ -splint placement Diagnosis/symptom? @ -Fall, skin tear, ulnar styloid fracture Acute, or Chronic, or Acute on Chronic? @Acute Uncomplicated (without systemic symptoms) or Complicated (systemic symptoms)? @ -Uncomplicated Side effects of treatment? @ -No Exacerbation, Progression, or Severe Exacerbation? @ -No Poses a threat to life or bodily function? How? (Chest pain, [place], [place], pneumonia, PE, COPD, DKA, ARF, appy, cholecystitis, CVA, Diverticulitis, Homicidal, Suicidal, threat to staff... and all critical care pts) @ -No Disposition Clinical Impression: Fall, Skin tear, Fracture of ulnar styloid Disposition: HOME SELF-CARE Condition: Good Instructions (If sedation given, give patient instructions): Fall Prevention (ED) Additional Instructions: Every disease is a spectrum and a small chance still exists that a serious condition could develop, for this reason, please monitor yourself closely for new, changing or worsening symptoms, new confusion, difficulty waking the patient, headaches, especially with nausea and vomiting, fever, inability to tolerate/keep down fluids or your medications, inability to follow up with outpatient providers as instructed and should you experience these symptoms or should you have any further concerns for your wellbeing please return to the ED or call 911 immediately. Please keep your splint on at all times until you are seen by the orthopedic surgeon. Please keep it clean and dry. Please ice and elevate your affected extremity for 20 minutes every 3-4 hours. You may take 650 mg to 1000 mg of Tylenol every 6 hours as needed for pain. Please monitor closely for worsening swelling, pale or dusky color to your hand, decrease sensation uncontrolled pain and should you experience the symptoms return to the ER immediately Please keep wound clean and dry. PLEASE call your primary care physician as soon as possible to arrange / discuss plan for followup appointment. Appointment in the next 1-3 days is strongly encouraged if possible. PLEASE let us know here before you leave if there is anything further we can do to be of any assistance. Take care and feel Better! Is patient prescribed a controlled substance at d/c from ED?: No Referrals: Blaine Dawn MD [Primary Care Provider] - 1-2 days Elder Rowell MD [STAFF PHYSICIAN] - 1-2 days
--- NOTE | 2024-10-19 15:57 | CT ---
EXAMINATION TYPE: CT brain cspine wo con, CT facial bones wo con CT DLP: combined DLP 1094.1 mGycm, Automated exposure control for dose reduction was used. DATE OF EXAM: 10/19/2024 3:46 PM COMPARISON: CT brain 07/26/2024 CLINICAL INDICATION:Male, 88 years old with history of fall, hit left side of head and face; fall TECHNIQUE: Brain: Multiple axial CT images of the brain were obtained without IV contrast. Cspine: Axial CT images from the skull base to the inferior aspect of T2 we obtained without intraven ous contrast. Coronal and sagittal reformatted images were also reviewed. Facial bones; axial CT images of the facial bones were obtained without contrast and soft tissue and bone windows. Coronal and sagittal reformatted images were also reviewed. FINDINGS: Brain: Extra-axial spaces: No abnormal extra-axial fluid collections. Ventricular system: Dilatation in proportion to cerebral atrophy. Cerebral parenchyma: Cerebral atrophy. No acute intraparenchymal hemorrhage or mass effect. The serrato -white junction is well differentiated. Scattered hypoattenuating areas are seen within the periventr icular white matter. Cerebellum: Unremarkable. Mass effect: No evidence of midline shift. Intracranial vasculature: Atherosclerotic calcifications of the intracranial vessels. Soft tissues: Normal. Calvarium: No depressed skull fracture. Paranasal sinuses and mastoid air cells: Clear. Cervical spine: Fracture: None. Osseous structures: Diffuse bone demineralization. Multilevel disc space narrowing with endplate scle rosis and vacuum disc disease. Vertebral alignment: Grade 1 anterolisthesis of C4 on C5 and C7 on T1. Grade 1 retrolisthesis of C5 o n C6. Spinal canal/Neural Foramina: Disc osteophyte complexes at C3-C4, C5-C6, and C6-C7 without spinal can al stenosis. Facet joint uncovertebral joint arthropathy scattered throughout the cervical spine with varying degrees of neural foraminal stenosis. Neck soft tissues: Prevertebral soft tissues are within normal limits. Other: The airway is patent. The lung apices are clear. Bilateral carotid bifurcation calcification. Facial Bones: There is no evidence of fracture, subluxation or dislocation. Left infraorbital/cheek soft tissue con tusion. Bilateral aphakia. The orbital contents are unremarkable. The temporal-mandibular joints appe ar symmetric. The visualized portion of the paranasal sinuses appear clear. IMPRESSION: 1. No acute intracranial process. 2. Nonspecific white matter changes, likely secondary to chronic small vessel ischemic disease. 3. Acute left infraorbital/cheek soft tissue contusion. 4. No acute facial bone fracture. 5. No evidence of cervical spine fracture. 6. Mild multilevel degenerative disc disease. Grade 1 anterolisthesis of C4 on C5 and C7 on T1. Grad e 1 retrolisthesis of C5 on C6. [facility], , 10/19/2024 3:55 PM
[2024-10-19 16:48] VITALS: PULSE 80
--- NOTE | 2024-10-19 17:27 | XR ---
EXAMINATION TYPE: XR wrist complete RT, XR hand complete RT DATE OF EXAM: 10/19/2024 5:09 PM INDICATION: Patient age:Male; 88 years old; Reason for study: pain, swelling ulnar region, fall; PHH. pain COMPARISON: None TECHNIQUE: 4 views of the right wrist. Frontal, navicular, lateral, and oblique. The right hand was evaluated in frontal, lateral and oblique positions. FINDINGS: Diffuse bone demineralization which limits evaluation. No acute fracture or dislocation. De generative changes of the radioulnar joint. Calcification within the TFCC and radiocarpal joint. Adva nced degenerative changes of the first CMC joint. Soft tissue swelling the wrist. Vascular sclerosis. IMPRESSION: 1. No acute osseous pathology. 2. Soft tissue swelling of the wrist along the ulnar aspect. 3. Chondrocalcinosis of the wrist. 4. Advanced degenerative changes of the first CMC. [facility], , 10/19/2024 5:24 PM
[2024-10-19 18:15] VITALS: BP 118/80; RESP 18
== END 2024-10-19 18:15 | disposition home or self-care (01) ==
LOC: EC 14:43
DX: S52.614A Nondisplaced fracture of right ulna styloid process, initial encounter for closed fracture (principal); S61.031A Puncture wound without foreign body of right thumb without damage to nail, initial encounter; F03.94 Unspecified dementia, unspecified severity, with anxiety; Z87.891 Personal history of nicotine dependence; Z88.5 Allergy status to narcotic agent; Z88.8 Allergy status to other drugs, medicaments and biological substances; W01.0XXA Fall on same level from slipping, tripping and stumbling without subsequent striking against object, initial encounter; Y92.480 Sidewalk as the place of occurrence of the external cause; Y93.01 Activity, walking, marching and hiking
CPT/HCPCS: 29125; 70450; 70486; 72125; 99285